=== PATIENT | male | born 1965 | race Caucasian/White ===

== ENCOUNTER → 2016-07-30 | Outpatient (CLI) | payer OTHER ==
[~2016-07-30] VITALS: Ht 167.6 cm; Wt 139.3 kg
[2016-07-30 15:28] VITALS: BP 125/87; PULSE 91; Ht 167.6 cm; Wt 139.3 kg
== END | disposition home or self-care (01) ==
LOC: C.NEUR 14:50
PROVIDERS: ATTEND Internal Medicine Pulmonary Disease
DX: R06.83 Snoring (principal); R06.81 Apnea, not elsewhere classified; R53.83 Other fatigue

== ENCOUNTER → 2016-09-02 | Outpatient (CLI) | payer OTHER ==
[~2016-09-02] MED LIST: FLM4 PO; METO50TA7 PO
--- NOTE | 2016-09-03 06:47 | SPLIT NIGHT TECHNICIAN REPORT ---
[facility] Split Night Polysomnogram - Oral And Maxillofacial Pathologist Report Study date: 09/02/2016 Referring Physician: DR. HA Name: RAJEEV PRIDE Oral And Maxillofacial Pathologist: RAS Vasquez. Date of : 1965 Height: 51 years, Height 5' 8" Sex: Male Weight: 268 lbs Age: 51 Neck Circum: 19 in BMI: Medications: 40.74 METOPROLOL 50 MG, TAMSULOSIN 0.4 MG, NAPROXEN 220 MG Patient History 51 yr-old male here for a baseline/split study. He has a history of excessive daytime sleepiness, loud snoring, witnessed apneas, and frequent awakenings. His [place] scale is 16. The test was started on room air. ETCO2 testing was not utilized during this study. Room 3 Parameters Monitored NPSG: E1-M2, E2-M1, Fp1-M2, Fp2-M1, F3-M2, F4-M2, F4-M1, C3-M2, C4-M2, C4-M1, O1-M2, O2-M2, O2-M1, T3-M2, T4-M1, P3-M2, P4-M1, CHIN1, CHIN2, HR, EKG, Legs, PFLOW, SNOR, FLOW, CFLOW, Tidal Volume, THOR, ABDO, SpO2, PLTH, CPRESS, ETCO2 Wave, ETCO2, pH SLEEP SUMMARY DATA DIAGNOSTIC TREATMENT Lights Out: 10:41:41 PM NONE Lights On: 1:15:11 AM 5:35:11 AM Total Recording Time (TRT): 153.5 min. 229.5 min. Total Sleep Time (TST): 128.0 min. 222.0 min. NREM Time: 113.0 min. 122.0 min. REM Time: 15.0 min. 100.0 min. Sleep Period Time (SPT): 138.0 min. 224.5 min. Sleep Efficiency (SE): 83 % 97 % Sleep Latency: 15.5 min. NONE min. Arousal Index: 19.2 1.9 PAP Treatment Levels: 4, 6 * Optimal Pressure(s) SLEEP STAGING DATA DIAGNOSTIC TREATMENT Duration (min) TST % Duration (min) TST % Stage Wake: 25.5 min. -- 7.5 min. -- WASO: 10.0 min. -- 2.5 min. -- NREM: 113.0 min. 88 % 122.0 min. 55 % Stage N1: 8.0 min. 6 % 6.0 min. 3 % Stage N2: 104.5 min. 82 % 49.5 min. 22 % Stage N3: 0.5 min. 0 % 66.5 min. 30 % REM: 15.0 min. 12 % 100.0 min. 45 % POSITIONAL DATA Event Count Index Event Count Index Supine: N/A N/A N/A N/A Supine NREM: N/A N/A N/A N/A Supine REM: N/A N/A N/A N/A Non-Supine: 219 102.7 3 0.8 Non-Supine NREM: 192 101.9 1 0.5 Non-Supine REM: 27 108.0 2 1.2 AROUSAL SUMMARY DATA: Event Count Index Event Count Index Apnea Arousals: 1 17.8 0 0.3 Hypopnea Arousals: 35 16.4 0 0.0 Snore Arousals: 1 0.5 6 1.6 PLM Arousals: 0 0.0 0 0.0 Non-Specific Arousals: 4 1.9 2 0.5 Total Arousals: 41 19.2 7 1.9 MYOCLONUS (PLM) Event Count Index Event Count Index PLM: 33 15.5 123 33.2 PLM AROUSAL: 0 0.0 0 0.0 PLM W/O AROUSAL 33 15.5 123 33.2 PLM W/RESP EVENT 5 0.0 0 0.0 MYOCLONUS (PLM) Event Count Index Event Count Index LM: 0 64.7 23 6.2 LM AROUSAL: 0 0.0 1 0.3 LM W/O AROUSAL LM W/RESP EVENT LM NON SPECIFIC 95 44.5 145 39.2 HEART RATE DATA DIAGNOSTIC TREATMENT Sleep (bpm): 84 80 REM (bpm): 87 92 NREM (bpm): 92 92 Tachycardia Count: 0 0 Tachycardia Duration: 0.00 0 Bradycardia Count: 0 0 Bradycardia Duration: 0.00 0 DIAGNOSTIC PORTION TREATMENT PORTION RESPIRATORY DATA Event Count Index Event Count Index AHI: -- 102.7 -- 0.8 RDI: -- 102.7 -- 1 Obstructive Apnea: 34 15.9 0 0.0 Central Apnea: 0 0.0 1 0.3 Mixed Apnea: 4 1.9 0 0.0 Hypopnea: 181 84.8 2 0.5 RERA: 0 0.0 0 0.0 Total Apneas: 38 17.8 1 0.3 RESPIRATORY DATA REM NREM SLEEP REM NREM SLEEP Supine Position: Obstructive Apneas: N/A N/A N/A N/A N/A N/A Central Apneas: N/A N/A N/A N/A N/A N/A Mixed Apneas: N/A N/A N/A N/A N/A N/A Hypopneas: N/A N/A N/A N/A N/A N/A RERA N/A N/A N/A N/A N/A N/A Total Supine Events: N/A N/A N/A N/A N/A N/A Supine AHI: N/A N/A N/A N/A N/A N/A Supine RDI: N/A N/A N/A N/A N/A N/A REM NREM SLEEP REM NREM SLEEP Non-Supine Position: Obstructive Apneas: 0 34 34 0 0 0 Central Apneas: 0 0 0 1 0 1 Mixed Apneas: 0 4 4 0 0 0 Hypopneas: 27 154 181 1 1 2 RERA 0 0 0 0 0 0 Total Supine Events: 27 192 219 2 1 3 Supine AHI: 108.0 101.9 102.7 1.2 0.5 0.8 Supine RDI: 108.0 101.9 102.7 1.2 0.5 0.8 OXYGEN DESTAURATION DATA: Event Count Index Event Count Index REM Desaturations: 27 108.0 4 2.4 NREM Desaturations: 199 105.7 3 1.5 SNORE DATA DIAGNOSTIC TREATMENT Snore Time: 36.2 1:50:41 AM Snore TST%: 28 13 Snore Arousal Count: 1 6 Snore Arousal Index: 0.5 1.6 Desaturation Event Summary: Minimum %SpO2 Event Count Mean/Min/Max Duration(sec.) Desaturation Index % Time In Bed > 90 252 17.0 / 5.0 / 47.8 47.3 84.1 86 - 90 6 16.9 / 11.3 / 24.0 6.9 13.8 81 - 85 0 N/A 0.0 1.3 76 - 80 0 N/A 0.0 0.7 71 - 75 0 N/A 0.0 0.1 66 - 70 0 N/A 0.0 0.0 61 - 65 0 N/A 0.0 0.0 56 - 60 0 N/A 0.0 0.0 51 - 55 0 N/A 0.0 0.0 < 50 0 N/A 0.0 0.0 OXYGEN SATURATION DATA DIAGNOSTIC TREATMENT SpO2 Mean Sleep: 91 % 92 % SpO2 Mean REM: 87 % 92 % SpO2 Mean NREM: 92 % 92 % SpO2 Minimum Sleep: 70 % 86 % SpO2 Minimum REM: 70 % 86 % SpO2 Minimum NREM: 74 % 88 % Time Below 90% (TST): 33.5 1.6 Time Below 88% (TST): 16.1 0.1 Total REM NREM Awake <50% 0.0 min. 0.0 min. 0.0 min. 0.0 min. 51 - 60% 0.0 min. 0.0 min. 0.0 min. 0.0 min. 61 - 70% 0.0 min. 0.0 min. 0.0 min. 0.0 min. 71 - 80% 3.3 min. 2.9 min. 0.4 min. 0.0 min. 81 - 90% 57.4 min. 15.0 min. 40.9 min. 1.4 min. 91 - 100% 319.8 min. 97.1 min. 191.7 min. 31.1 min. Average 92 91 92 94 Minimum SpO2 70 70 74 87 Desaturation Event Index 39.5 16.2 51.6 40.0 # Desat. Events below 89% 159 28 128 3 Time(%) with Saturation below 89% 6.2 2.1 4.0 0.1 Time(min.) with Saturation below 89% 23.5 7.9 15.4 0.2 Recording Oral And Maxillofacial Pathologist Comments: Mr. Pride slept in the right and left positions. No cardiac arrhythmias were noted. No bruxism noted. Snoring was noted and scored as a 4 on a scale of 1 through 5. (0=no snoring, 5=snoring loud enough to be heard through a closed door or down the [address] way). At 1:15 am, he met specific Split-Night criteria during the diagnostic portion of this study. CPAP was initiated at +4 CMH2O and up-titrated to a level of +6 CMH2O, Cflex 2 which nearly eliminated all respiratory events and snoring. A Mirage FX Soft edge nasal mask size standard from [employer] was used during titration. He awoke to use the restroom one time during the night. Mr. Pride stated that he slept better than usual. The final report will be interpreted and signed by a sleep physician. The completed physician report will then be placed in the patient medical record. Therapy Event: Therapy (cm H20) 0 4 6 Total Time at Pressure (min.) 153.5 18.7 210.7 TST at Pressure (min.) 128.0 11.8 210.2 # Periods 1 1 1 Sleep Onset (min.) 15.5 5.0 0.0 REM Onset (min.) 101.0 N/A 25.7 Sleep Efficiency % 83 62 99 Wakefulness (%) 16.6 37.1 0.2 Wakefulness (min.) 25.5 7.0 0.5 NREM 1 (%) 5.2 21.3 0.9 NREM 1 (min.) 8.0 4.0 2.0 NREM 2 (%) 68.1 41.5 19.8 NREM 2 (min.) 104.5 7.8 41.7 NREM 3 (%) 0.3 0.0 31.6 NREM 3 (min.) 0.5 0.0 66.5 REM (%) 9.8 0.0 47.5 REM (min.) 15.0 0.0 100.0 # Arousals 41 4 3 Arousal Index 19.2 20.4 0.9 # Snore 1,175 223 887 Snore Index 550.8 1,135.5 253.2 AHI 102.7 0.0 0.9 AHI Supine N/A N/A N/A AHI Non-Supine 102.7 0.0 0.9 NREM AHI 101.9 0.0 0.5 REM AHI 108.0 N/A 1.2 RDI 102.7 0.0 0.9 # Obstructive 34 0 0 # Central Ap 0 0 1 # Mixed 4 0 0 # Hypopneas 181 0 2 RERAS 0 0 0 Total Respiratory Events 219 0 3 Time Below SpO2 89.00% (min.) 23.0 0.0 0.3 Mean NREM SpO2 (%) 92 92 92 Mean REM SpO2 (%) 87 N/A 92 Mean Sleep SpO2 (%) 91 92 92 Min NREM SpO2 (%) 74 90 88 Min REM SpO2 (%) 70 N/A 86 Position Supine (min.) 0.0 0.0 0.0 Position Non-supine (min.) 128.0 11.8 210.2 LM Index Sleep 80.2 5.1 41.4 LM Index NREM 89.7 5.1 73.5 LM Index REM 8.0 N/A 6.0 Mean Heart Rate (bpm) 84 86 80 Min Heart Rate (bpm) 50 79 66
--- NOTE | 2016-09-06 07:40 | POLYSOMNOGRAPH REPORT ---
CLINICAL DATA: A 51-year-old male with BMI of 40.7 referred by myself for a split night sleep study. He has excessive daytime sleepiness, loud snoring, witnessed apneas, and frequent awakenings. His [place] sleepiness score is 16/24. This was a split night study. SLEEP ARCHITECTURE: For the diagnostic portion of the study, total sleep period was 138 minutes. Total sleep time was 128 minutes, divided between 113 minutes of non-REM sleep and 15 minutes of REM sleep. Sleep latency was 15.5 minutes. Sleep efficiency was 83%. Arousal index was 19.2. Sleep consisted of stage N1 6%, N2 82, REM 12%. For the treatment portion of the study, total sleep period was 224.5 minutes. Total sleep time was 222 minutes, divided between 122 minutes of non-REM sleep and 100 minutes of REM sleep. Sleep latency was immediate. Arousal index was 1.9. Sleep efficiency was 97%. Sleep consisted of stage N1 3%, N2 22%, N3 30% and REM 45% suggesting REM rebound. AROUSAL DATA: Prior to treatment, 41 arousals were recorded for an index of 19.2 per hour. Following treatment, 7 arousals were recorded for an index of 1.9 per hour. PERIODIC LIMB MOVEMENTS DATA: Prior to treatment, 95 limb movements during sleep were noted for an index of 44.5 per hour. During treatment, 145 limb movements during sleep were noted for an index of 39.2 per hour. ELECTROCARDIOGRAM: Heart rates ranged from 80-92 beats per minute. No arrhythmias were noted. RESPIRATORY DATA: Prior to treatment, very severe obstructive sleep apnea was documented. The AHI was 102.7. There were 34 obstructive apneic episodes and 4 mixed apneic episodes. There were 181 hypopneic episodes. Following treatment, the mean AHI was 0.8. There was 1 central apneic episode and 2 hypopneic episodes recorded. OXIMETRY DATA: Nocturnal hypoxemia was seen prior to treatment. Oxygen osiel was 78% during REM sleep prior to treatment. Mean saturation after treatment was 92%. CRYPTANALYST'S COMMENTS AND TREATMENT SUMMARY: The patient slept in the right and left positions. Snoring was severe, rated 4 on a scale of 1 through 5. At 1:15 a.m., patient met split night criteria. CPAP was started using a Mirage FX soft edge nasal mask standard size from [employer]. He was titrated up to his final pressure setting of 6 cm of water pressure, C-Flex setting #2. At his final pressure setting, patient slept for 210 minutes with an AHI of 0.9. After he was started on CPAP, his hypoxemia corrected and his sleep architecture improved dramatically. IMPRESSION: Very severe sleep apnea/hypopnea with diagnostic apnea hypopnea index of 102.7 with nocturnal hypoxemia corrected with CPAP 6 cm of water pressure, C-Flex setting #2, Mirage FX soft edge nasal mask size standard from [employer]. RECOMMENDATIONS: The patient should be started on the above noted treatment regimen and seen back in followup within 90 days to document efficacy and compliance. MTDD
== END | disposition home or self-care (01) ==
LOC: C.NEUR 21:00
PROVIDERS: ATTEND Internal Medicine Pulmonary Disease
DX: R53.83 Other fatigue (principal); R06.83 Snoring; R06.81 Apnea, not elsewhere classified

== ENCOUNTER → 2016-09-10 | Outpatient (CLI) | payer OTHER ==
[2016-09-10 16:32] VITALS: BP 135/83; PULSE 105; Ht 171.5 cm
== END | disposition home or self-care (01) ==
LOC: C.NEUR 14:41
PROVIDERS: ATTEND Internal Medicine Pulmonary Disease
DX: G47.33 Obstructive sleep apnea (adult) (pediatric) (principal)

== ENCOUNTER → 2016-12-07 | Outpatient (CLI) | payer OTHER ==
[2016-12-07 16:23] VITALS: BP 133/86; PULSE 97; Ht 170.2 cm
== END | disposition home or self-care (01) ==
LOC: C.NEUR 15:37
PROVIDERS: ATTEND Internal Medicine Pulmonary Disease
DX: G47.33 Obstructive sleep apnea (adult) (pediatric) (principal); E66.9 Obesity, unspecified

== ENCOUNTER 2017-04-14 10:14 | Emergency (ER) | payer OTHER ==
[2017-04-14 10:22] VITALS: BP 133/92; PULSE 89; TEMP 36.9; O2SAT 95; Ht 172.7 cm
[2017-04-14] MEDS ORDERED: METO50TA7 PO (10:39)
[2017-04-14] MEDS ORDERED: FLM4 PO (10:39)
--- NOTE | 2017-04-14 11:17 | EMERGENCY ROOM VISIT NOTE ---
ED Visit Note First contact with patient: 11:01 CHIEF COMPLAINT: Body Fluid exposure HPI: This 51-year-old male presents to the Emergency Department ambulatory for evaluation of a body fluid exposure when he was accidentally stuck by a solid bore, dirty needle in the operating room. Patient was wearing 2 gloves and was taking a Popoff suture from the surgeon and the needle slipped and caused a fingerstick. The wound has already been cleansed. Bleeding is controlled. They deny numbness, tingling, or loss of motion. Source patient is known. History of the source patient is not known at this time. The patient works at [employer]. They have had the hepatitis B. vaccination, and titers are unknown. They believe their tetanus is up-to-date. Pain is 0/10. 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 Physical Exam: VITALS: Nursing notes reviewed and vitals are stable. GENERAL: This is a 51-year-old male, in no acute distress, well developed, well nourished. SKIN: Warm and dry with good turgor. There are no abrasions. There are no obvious open areas or punctures to the left finger. Bleeding is controlled. No edema. Capillary refill is 2+. MUSCULOSKELETAL: Patient has full active range of motion of the hand and fingers. Normal strength. NEURO: Gross sensation is intact across the hand and fingers. ED COURSE: I examined the patient. Option of HIV, hepatitis C, and hepatitis B testing was discussed with the patient. The risks, benefits, purpose, and limitations of the tests were explained to the patient and all of their questions were answered. They elected to proceed. I did perform pretest counseling and the appropriate consent forms were signed. Patient was given information on prevention of exposure and transmission as well as hospital confidentiality. Blood exposure handout was provided. Patient elected to decline HIV prophylaxis at this time. They will follow-up with employee health. Wound care instructions were provided. Impression: Body fluid exposure Plan: Follow up with employee health for further evaluation, treatment, and test results. Current/Historical Medications Scheduled Metoprolol Succ (Toprol Xl) (Toprol-Xl), 50 MG PO DAILY Tamsulosin HCl (Tamsulosin HCl), 0.4 MG PO DAILY Allergies Coded Allergies: No Known Allergies (Verified Allergy, Unknown, 05/18/04) Vital Signs Date Time Temp Pulse Resp B/P (MAP) Pulse Ox O2 Delivery O2 Flow Rate FiO2 04/14/17 10:22 36.9 89 20 133/92 95 Room Air Departure Information Impression Primary Impression: Needlestick injury accident with exposure to body fluid Additional Impression: Work related injury Dispostion Home / Self-Care Condition GOOD Referrals Aishwarya Beck (PCP) Patient Instructions ED Body Fluid Exp 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 Problem Qualifiers
== END 2017-04-14 11:38 | disposition home or self-care (01) ==
LOC: C.EDB 10:15 → C.EDA 11:38
DX: Z77.21 Contact with and (suspected) exposure to potentially hazardous body fluids (principal); W46.1XXA Contact with contaminated hypodermic needle, initial encounter; Y99.0 Civilian activity done for income or pay

== ENCOUNTER → 2017-05-19 | Outpatient (CLI) | payer OTHER ==
--- NOTE | 2017-05-19 16:04 | DIAGNOSTIC IMAGING REPORT ---
R KNEE 4 OR MORE VIEWS CLINICAL HISTORY: 51 years-old Male presenting with BILATERAL KNEE PAIN. TECHNIQUE: Frontal, lateral, tunnel, and sunrise views of the right knee were obtained. COMPARISON: 2012. FINDINGS: No acute fracture or malalignment. There has been slight interval increase in medial and lateral joint space narrowing in comparison to 2012. There is greater medial joint space loss in comparison to the lateral compartment. Trace osteophytosis in the medial compartment suggested. Minimal osteophytosis in the patellofemoral compartment is unchanged from prior. No large effusion. IMPRESSION: No acute osseous injury of the right knee. Mild tricompartmental degenerative changes slightly increased in the medial compartment since 2012. Electronically signed by: Luis Madera M.D. 05/19/2017 4:03 PM Dictated Date/Time: 05/19/2017 4:01 PM
--- NOTE | 2017-05-19 16:07 | DIAGNOSTIC IMAGING REPORT ---
LEFT KNEE 4 VIEWS HISTORY: BILATERAL KNEE PAIN COMPARISON: None. FINDINGS: There is no fracture or dislocation. Soft tissues are unremarkable. No significant knee effusion. Mild cartilage space narrowing within the patellofemoral compartments with small tricompartmental marginal osteophytes. IMPRESSION: 1. No fractures within the left knee. 2. 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 Electronically signed by: Tam Lao M.D. 05/19/2017 4:05 PM Dictated Date/Time: 05/19/2017 4:04 PM
--- NOTE | 2017-05-20 09:33 | CODING QUERY NO DIAGNOSIS ---
: 1965 TREATMENT RENDERED WITHOUT A DIAGNOSIS To promote full compliance with coding requirements relating to patient care, physician participation is requested in all cases of advertising space clerk uncertainty. Please assist us with providing a diagnosis/symptom for the test(s) below: A diagnosis/symptom was not documented on your Order. A valid diagnosis/symptom is required to bill all insurances. Please remember that we are unable to code a diagnosis of rule out, probable, possible, questionable, or suspected. Tests that require a diagnosis: DOS: 05/19/17 * BILATERAL KNEE XRAY DIAGNOSIS: Provider Signature: Date: Thank you Sravanthi Thomas Health Information Management Once completed, please kindly fax back to [phone] For questions please call [phone]
== END | disposition home or self-care (01) ==
LOC: C.RAD 15:24
DX: Z01.89 Encounter for other specified special examinations (principal)

== ENCOUNTER → 2017-05-27 | Outpatient (CLI) | payer OTHER ==
--- NOTE | 2017-05-27 09:56 | DIAGNOSTIC IMAGING REPORT ---
L LOWER EXT JOINT WITHOUT CLINICAL HISTORY: 51 years-old Male presenting with ACUTE L KNEE PAIN. TECHNIQUE: Multisequence, multiplanar MR imaging of the left knee was performed without the use of intravenous contrast. IV contrast: None. COMPARISON: Plain radiographs of the left knee from 05/19/2017. FINDINGS: Localizer images: Unremarkable. No bony edema. Focal articular cartilage defect nearly 50% thickness along the posterior lateral weightbearing portion of the medial femoral condyle (at least grade 2 cartilage injury). The defect measures 7 mm in length and 11 mm in width. Articular cartilage thinning and irregularity of the lateral facet of the patella with greatest thinning in the region of the median prominence and greatest irregularity more laterally. The patella is also slightly laterally subluxed relative to the trochlear groove. Subchondral cystic change also noted in the patella along the lateral facet which suggests grade 4 cartilage injury. Diffusely increased signal intensity of the anterior cruciate ligament though fibers remain visible and intact. This likely implies mucoid degeneration of the ACL. Posterior cruciate ligament intact. Significant underlying degenerative change of the anterior horn and anterior root of the lateral meniscus with a complex tear present. Medial meniscus with focal abnormal signal intensity that approaches the tibial articular surface along the body of the meniscus with intrasubstance abnormal signal, suggesting degenerative type tear. Meniscocapsular ligaments appear intact. Medial collateral ligament with mild edema superficial and deep to the mid to proximal fibers though the fibers remain intact and normal in signal intensity, suggesting grade 1 sprain. Lateral collateral ligament complex including the biceps femoris tendon, fibular collateral ligament, popliteus tendon, and iliotibial band intact. Quadriceps and patellar tendons intact. Extensive superficial edema in the prepatellar region suggesting prepatellar bursitis. No infiltration of Hoffa's fat pad. Small knee joint effusion. Small popliteal cyst. Normal muscle bulk and muscle signal intensity. IMPRESSION: 1. Complex tear with extensive degenerative change of the anterior horn and anterior root of the lateral meniscus. 2. Degenerative type tear of the body of the medial meniscus. 3. Extensive mucoid degeneration of the anterior cruciate ligament without evidence of tear. 4. Articular cartilage degenerative change along the lateral patellar facet as above with associated lateral patellar subluxation. 5. Focal articular cartilage defect (at least grade 2 cartilage injury) in the posterior lateral weightbearing portion of the medial femoral condyle measuring 7 x 11 mm. 6. Grade 1 sprain of the medial collateral ligament. 7. Small knee joint effusion. 8. Findings suggest prepatellar bursitis. Electronically signed by: Luis Madera M.D. 05/27/2017 9:55 AM Dictated Date/Time: 05/27/2017 9:40 AM
== END | disposition home or self-care (01) ==
LOC: C.MRI 08:21
DX: S83.282A Other tear of lateral meniscus, current injury, left knee, initial encounter (principal); S83.242A Other tear of medial meniscus, current injury, left knee, initial encounter; M17.12 Unilateral primary osteoarthritis, left knee; S83.412A Sprain of medial collateral ligament of left knee, initial encounter; M25.462 Effusion, left knee; X58.XXXA Exposure to other specified factors, initial encounter

== ENCOUNTER → 2017-05-31 | Outpatient (CLI) | payer OTHER ==
[2017-05-31 12:57] LABS: BASO % 0.4 %; BASO ABS # 0.03 K/uL (0-0.2); COMPLETE YES; IG% 0.6 %; LYMPH % 19.9 %; LYMPH ABS # 1.43 K/uL (1.2-3.4); MEAN CELL VOLUME 83.5 fL (80-100); MEAN CORPUSCULAR HEMOGLOBIN 28.5 pg (25-34); MEAN CORPUSCULAR HGB CONC 34.2 g/dl (32-36); MEAN PLATELET VOLUME 10.2 fL (7.4-10.4); MONO % 8.1 %; PLATELET COUNT 186 K/uL (130-400); RED BLOOD COUNT 5.15 M/uL (4.7-6.1); WHITE BLOOD COUNT 7.19 K/uL (4.8-10.8)
[2017-05-31 13:09] LABS: URINE APPEARANCE CLOUDY (CLEAR); URINE BILIRUBIN NEG (NEG); URINE COLOR YELLOW; URINE EPITHELIAL CELL AUTO 0-5 /lpf (0-5); URINE NITRITE NEG (NEG); URINE SPECIFIC GRAVITY 1.024 (1.000-1.030); UROBILINOGEN NEG (NEG); ZZUR CULT IF INDIC CLEAN CATCH NO
[2017-05-31 13:15] LABS: MANUAL MICROSCOPIC REQUIRED? NO; REVIEW REQ? NO
[2017-05-31 13:20] LABS: ESTIMATED AVERAGE GLUCOSE 171 mg/dl; HA1C FLAG Normal (Normal)
[2017-05-31 13:30] LABS: ALT/SGPT 47 U/L (12-78); BLOOD UREA NITROGEN 16 mg/dl (7-18); BUN/CREATININE RATIO 16.1 (10-20); CARBON DIOXIDE 24 mmol/L (21-32); CHLORIDE 106 mmol/L (98-107); CHOLESTEROL 181 mg/dl (0-200); CREATININE 1.01 mg/dl (0.60-1.40); GLUCOSE 150 mg/dl (70-99); POTASSIUM 4.2 mmol/L (3.5-5.1); SODIUM 138 mmol/L (136-145)
[2017-05-31 13:41] LABS: ALB/GLOB RATIO 0.9 (0.9-2); ALKALINE PHOSPHATASE 109 U/L (45-117); AST/SGOT 16 U/L (15-37); HDL CHOLESTEROL 36 mg/dl; LDL CHOLESTEROL CALCULATED 111 mg/dl; THYROID STIMULATING HORMONE 0.723 uIu/ml (0.300-4.500); TRIGLYCERIDES 169 mg/dl (0-150); VERY LOW DENSITY LIPOPROT CALC 34 mg/dl
== END | disposition home or self-care (01) ==
LOC: C.LABBFT 09:47
PROVIDERS: ATTEND Internal Medicine
DX: R73.9 Hyperglycemia, unspecified (principal); E66.9 Obesity, unspecified; E55.9 Vitamin D deficiency, unspecified; R68.82 Decreased libido

== ENCOUNTER → 2017-10-06 | Outpatient (CLI) | payer OTHER ==
[~2017-10-06] MED LIST changes: -METO50TA7 PO; +METO50TA8 PO
[2017-10-06 12:53] LABS: HEMOGLOBIN A1C 8.5 % (4.5-5.6)
[2017-10-06 13:22] LABS: ALBUMIN 3.7 gm/dl (3.4-5.0); ALT/SGPT 61 U/L (12-78); BLOOD UREA NITROGEN 12 mg/dl (7-18); CALCIUM 9.2 mg/dl (8.5-10.1); CARBON DIOXIDE 27 mmol/L (21-32); CHOLESTEROL 208 mg/dl (0-200); CREATININE 1.05 mg/dl (0.60-1.40); GLUCOSE 173 mg/dl (70-99); POTASSIUM 4.1 mmol/L (3.5-5.1); SODIUM 136 mmol/L (136-145)
[2017-10-06 13:26] LABS: ALKALINE PHOSPHATASE 126 U/L (45-117); AST/SGOT 23 U/L (15-37); LDL CHOLESTEROL CALCULATED 129 mg/dl; TOTAL PROTEIN 7.5 gm/dl (6.4-8.2)
== END | disposition home or self-care (01) ==
LOC: C.LABBFT 10:02
PROVIDERS: ATTEND Physician Assistant Medical
DX: E11.65 Type 2 diabetes mellitus with hyperglycemia (principal)

== ENCOUNTER → 2018-02-24 | Outpatient (CLI) | payer OTHER | END | disposition home or self-care (01) | LOC: C.LAB 15:52 | PROVIDERS: ATTEND Urology | DX: R97.20 Elevated prostate specific antigen [PSA] (principal); N40.1 Benign prostatic hyperplasia with lower urinary tract symptoms ==

== ENCOUNTER → 2018-03-02 | Outpatient (CLI) | payer OTHER ==
[2018-03-02 12:44] LABS: HEMOGLOBIN A1C 5.8 % (4.5-5.6)
[2018-03-02 13:46] LABS: CREATININE RANDOM URINE 98.4 mg/dl
[2018-03-02 14:01] LABS: ALBUMIN 3.8 gm/dl (3.4-5.0); ALKALINE PHOSPHATASE 117 U/L (45-117); ALT/SGPT 32 U/L (12-78); AST/SGOT 12 U/L (15-37); BLOOD UREA NITROGEN 16 mg/dl (7-18); CARBON DIOXIDE 24 mmol/L (21-32); CHOLESTEROL 187 mg/dl (0-200); CREATININE 0.99 mg/dl (0.60-1.40); GLUCOSE 109 mg/dl (70-99); LDL CHOLESTEROL CALCULATED 127 mg/dl; POTASSIUM 4.2 mmol/L (3.5-5.1); SODIUM 138 mmol/L (136-145); TOTAL PROTEIN 7.8 gm/dl (6.4-8.2)
== END | disposition home or self-care (01) ==
LOC: C.LABBFT 10:22
PROVIDERS: ATTEND Physician Assistant Medical
DX: E11.65 Type 2 diabetes mellitus with hyperglycemia (principal)

== ENCOUNTER 2019-12-10 10:28 | Inpatient (IN) ==
[2019-12-10] MEDS ORDERED: cefTRIAXone SODIUM 1,000 MG/50 ML BAG IV STA ×2 (10:53→16:10)
[2019-12-10] MEDS ORDERED: SODIUM CHLORIDE 0.9% 1000ML 1,000 ML IV ONE ×3 (10:53→16:20)
[2019-12-10] MEDS ORDERED: LIDOCAINE/EPINEPHRINE 1% 20 ML VIAL INFIL ONE (11:01)
--- NOTE | 2019-12-10 11:08 | Emergency Department Note ---
Impression & Plan Prostatitis, Abdominal pain, Post-op pain ED Provider Note NAME: RAJEEV NEWBERRY AGE: 54 SEX: M : 1965 ARRIVES VIA: Ambulance INFORMANT: Patient ED PROVIDER(S): Taran Mondragon DO CHIEF COMPLAINT: Weakness, myalgias and shaking chills HPI: Patient is a 54-year-old male who presents the ER for abdominal pain and shaking chills. Had a prostate biopsy by Dr. Delgadillo done this past Tuesday. He notes on Tuesday he started having diffuse body chills and his whole body shaking. Faint cough this morning following which he felt he was going to vomit. Since then he has been having abdominal pain 7 out of 10 throughout his entire belly. He does have a headache as well. He denies any recorded fevers above 100.4 but has had some 99.9. He took 3 doses of Cipro prescribed to him by Dr. Delgadillo Tuesday. He notes he is too weak to get up and move around. He denies any dysuria urgency or frequency at this time. He denies any blood in his urine. ROS: See above HPI for pertinent positives & negatives. A total of 10 systems reviewed and were otherwise negative. PAST MEDICAL HISTORY:See Below PAST SURGICAL HISTORY:See Below FAMILY HISTORY:See Below SOCIAL HISTORY:See Below HOME MEDICATIONS:See Below ALLERGIES:See Below VITALS:See Below PHYSICAL EXAMINATION: GENERAL: Sitting up in bed, alert, well appearing, well nourished, no distress, non-toxic EYE EXAM: normal conjunctiva. PERRL and EOM's grossly intact. OROPHARYNX: no exudate, no erythema, lips, buccal mucosa, and tongue normal and mucous membranes are moist NECK: supple, no nuchal rigidity, no adenopathy, non-tender LUNGS: Clear to auscultation. Normal chest wall mechanics HEART: no murmurs, S1 normal and S2 normal ABDOMEN: abdomen soft, diffuse abdominal tenderness, normo-active bowel sounds, no masses, no rebound or guarding. BACK: Back is symmetrical on inspection and there is no deformity, no midline tenderness, no CVA tenderness. SKIN: no rashes and no bruising UPPER EXTREMITIES: upper extremities are grossly normal. LOWER EXTREMITIES: No pitting edema. NEURO EXAM: Normal sensorium, cranial nerves II-XII grossly intact, normal speech, no gross weakness of arms, no gross weakness of legs. MEDICAL DECISION MAKING: Patient is a 54-year-old male that presents the ER for diffuse myalgias and arthralgias associated with shaking chills and a recent prostate biopsy. He was placed on Cipro yesterday and took a total of 3 doses. IV was established blood work was obtained. He has diffuse lower abdominal pain on my exam. Labs show no significant leukocytosis or anemia. INR was unremarkable. BMP with mild hypokalemia. Glucose was slightly elevated. Lactate was normal. Magnesium was low at 1.5. LFTs and bilirubin was normal. Troponin was negative. UA was clean although he has been on antibiotics x3 doses. CT abdomen pelvis shows proctitis versus prostatitis. Patient was given IV fluids, IV pain meds as well as IV antibiotics. He was updated bedside. Discussed with urology and the hospitalist and patient was admitted for further work-up as I do favor this secondary to an infection from his recent biopsy. Triage Nursing notes reviewed. Prior medical records reviewed Vital Signs: reviewed and remarkable for no significant abnormalities Differential diagnosis: Differential diagnosis includes etiologies such as sepsis, UTI, pneumonia, metabolic, electrolyte abnormalities, cardiac sources, intracerebral event, toxicologic, neurological, as well as others were entertained. ER treatment provided: See below Diagnostics interpreted by me: ECG: Sinus tach rate of 105 Normal axis No PVCs Normal QTC Cardiac Monitoring: An order was placed for continuous cardiac monitoring. The monitor shows a rate of 95 with sinus rhythm. Laboratory studies: As stated above and show below. Imaging studies: CT abdomen pelvis shows prostatitis Consultation(s): Discussed with Sirisha from [place] u[facility] who recommended observation. Discussed with Andria Connors from admitting hospitalist. 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 Feels Safe at Home: Yes Smoking Status: Never smoker Hx Alcohol Use: Yes Alcohol type: beer Hx Substance Use: No Allergies Allergies Allergy/AdvReac Type Severity Reaction Status Date / Time No Known Allergies Allergy Unknown Verified 12/10/19 11:30 Home Meds Home Medications Medication Instructions Recorded Confirmed acetaminophen 500 mg tablet 500 mg PO DAILY PRN tab 02/24/19 12/10/19 cholecalciferol (vitamin D3) 125 5,000 units PO FR cap 02/24/19 12/10/19 mcg (5,000 unit) capsule ibuprofen 800 mg tablet 800 mg PO BID tab 02/24/19 12/10/19 dulaglutide [Trulicity] 0.75 mg SQ FR 12/10/19 12/10/19 losartan 75 mg PO HS 12/10/19 12/10/19 metformin 2,000 mg PO HS 12/10/19 12/10/19 tamsulosin 0.4 mg PO HS 12/10/19 12/10/19 Previous Rx's Medication Instructions Recorded ciprofloxacin HCl 500 mg tablet 500 mg PO BID #10 tab 12/09/19 Results & Data (ED) Vital Signs Vital Signs - 24 hr 12/10/19 10:35 12/10/19 12:00 12/10/19 12:30 Temperature 37.1 C Temperature Source Oral Pulse Rate 111 H Pulse Rate [Apical] 99 H 97 H Pulse Rate from SpO2 Sensor Pulse Rhythm [Apical] Regular Regular Pulse Strength [Apical] Normal Respiratory Rate 22 18 18 Respiratory Effort / Characteristics Non-Labored Non-Labored Spontaneous Non-Labored Spontaneous Respiratory Depth Normal Normal Normal Respiratory Pattern Regular Regular Blood Pressure 122/76 Blood Pressure [Right Arm] 139/85 138/83 Blood Pressure Mean 91 Blood Pressure Mean [Right Arm] 103 101 Pulse Oximetry 96 96 96 Oxygen Delivery Method Room Air Room Air Room Air Sepsis Recent Fever Within 48 Hours Yes Sepsis New/Unexplained Change in Mental Status No Sepsis Action Taken by Nursing No Action Required 12/10/19 13:00 12/10/19 13:15 12/10/19 13:30 Temperature Temperature Source Pulse Rate 94 H 96 H Pulse Rate [Apical] 94 H Pulse Rate from SpO2 Sensor 95 H 95 H Pulse Rhythm [Apical] Regular Pulse Strength [Apical] Respiratory Rate 20 21 20 Respiratory Effort / Characteristics Non-Labored Spontaneous Respiratory Depth Normal Respiratory Pattern Regular Blood Pressure 145/78 H 129/82 Blood Pressure [Right Arm] 136/73 Blood Pressure Mean 97 98 Blood Pressure Mean [Right Arm] 94 Pulse Oximetry 96 96 96 Oxygen Delivery Method Room Air Sepsis Recent Fever Within 48 Hours Sepsis New/Unexplained Change in Mental Status Sepsis Action Taken by Nursing 12/10/19 13:45 12/10/19 14:00 12/10/19 14:15 Temperature Temperature Source Pulse Rate 92 H Pulse Rate [Apical] Pulse Rate from SpO2 Sensor 92 H 93 H 97 H Pulse Rhythm [Apical] Pulse Strength [Apical] Respiratory Rate 22 20 19 Respiratory Effort / Characteristics Respiratory Depth Respiratory Pattern Blood Pressure 120/84 135/72 131/71 Blood Pressure [Right Arm] Blood Pressure Mean 104 87 91 Blood Pressure Mean [Right Arm] Pulse Oximetry 95 96 95 Oxygen Delivery Method Sepsis Recent Fever Within 48 Hours Sepsis New/Unexplained Change in Mental Status Sepsis Action Taken by Nursing 12/10/19 14:30 12/10/19 15:00 Temperature Temperature Source Pulse Rate Pulse Rate [Apical] Pulse Rate from SpO2 Sensor 95 H 96 H Pulse Rhythm [Apical] Pulse Strength [Apical] Respiratory Rate 0 L Respiratory Effort / Characteristics Respiratory Depth Respiratory Pattern Blood Pressure 133/75 136/85 Blood Pressure [Right Arm] Blood Pressure Mean 97 109 Blood Pressure Mean [Right Arm] Pulse Oximetry 96 96 Oxygen Delivery Method Sepsis Recent Fever Within 48 Hours Sepsis New/Unexplained Change in Mental Status Sepsis Action Taken by Nursing Laboratory Data Result diagrams: 12/10/19 11:10 12/10/19 11:10 Lab Results 12/10/19 12/10/19 12/10/19 Range/Units 11:10 11:10 11:10 WBC 7.92 (4.8-10.8) K/uL RBC 4.76 (4.7-6.1) M/uL Hgb 13.7 L (14.0-18.0) g/dL Hct 39.1 L (42-52) % MCV 82.1 (80-100) fL MCH 28.8 (25-34) pg MCHC 35.0 (32-36) g/dL RDW Std Deviation 42.7 (36.4-46.3) fL RDW Coeff of Layla 14.2 (11.5-14.5) % Plt Count 132 (130-400) K/uL MPV 10.2 (7.4-10.4) fL Immature Gran % (Auto) 0.5 % Neut % (Auto) 90.7 % Lymph % (Auto) 2.1 % Webb % (Auto) 6.6 % Eos % (Auto) 0.0 % Baso % (Auto) 0.1 % Immature Gran # (Auto) 0.04 H (0.00-0.02) K/uL Neut # (Auto) 7.18 H (1.4-6.5) K/uL Lymph # (Auto) 0.17 L (1.2-3.4) K/uL Webb # (Auto) 0.52 (0.11-0.59) K/uL Eos # (Auto) 0.00 (0-0.5) K/uL Baso # (Auto) 0.01 (0-0.2) K/uL PT 13.1 H (9.0-12.0) Seconds INR 1.3 H (0.9-1.1) APTT 34.7 H (21.0-31.0) Seconds PTT Ratio 1.2 Sodium 135 L (136-145) mmol/L Potassium 3.4 L (3.5-5.1) mmol/L Chloride 104 (98-107) mmol/L Carbon Dioxide 23 (21-32) mmol/L Anion Gap 8.0 (3-11) BUN 14 (7-18) mg/dl Creatinine 1.10 (0.6-1.4) mg/dl Est Cr Clr Drug Dosing Not Reportable Est GFR ( Amer) 87.1 Est GFR (Non-Af Amer) 75.2 BUN/Creatinine Ratio 13.1 (10-20) Glucose 180 H (70-99) mg/dl Lactate (0.4-2.0) mmol/L Calcium 8.4 L (8.5-10.1) mg/dl Magnesium 1.5 L (1.8-2.4) mg/dl Total Bilirubin 1.1 H (0.2-1) mg/dl AST 22 (15-37) U/L ALT 46 (12-78) U/L Alkaline Phosphatase 85 (45-117) U/L Troponin I < 0.015 (0-0.045) ng/ml Total Protein 7.1 (6.4-8.2) gm/dl Albumin 3.2 L (3.4-5.0) gm/dl Globulin 3.9 (2.5-4.0) gm/dl Albumin/Globulin Ratio 0.8 L (0.9-2) Urine Color Urine Appearance (Clear) Urine pH (4.5-7.5) Ur Specific [place] (1.000-1.030) Urine Protein (Negative) Urine Glucose (UA) (Negative) Urine Ketones (Negative) Urine Blood (Negative) Urine Nitrite (Negative) Urine Bilirubin (Negative) Urine Urobilinogen (Negative) Ur Leukocyte Esterase (Negative) 12/10/19 12/10/19 Range/Units 11:10 13:27 WBC (4.8-10.8) K/uL RBC (4.7-6.1) M/uL Hgb (14.0-18.0) g/dL Hct (42-52) % MCV (80-100) fL MCH (25-34) pg MCHC (32-36) g/dL RDW Std Deviation (36.4-46.3) fL RDW Coeff of Layla (11.5-14.5) % Plt Count (130-400) K/uL MPV (7.4-10.4) fL Immature Gran % (Auto) % Neut % (Auto) % Lymph % (Auto) % Webb % (Auto) % Eos % (Auto) % Baso % (Auto) % Immature Gran # (Auto) (0.00-0.02) K/uL Neut # (Auto) (1.4-6.5) K/uL Lymph # (Auto) (1.2-3.4) K/uL Webb # (Auto) (0.11-0.59) K/uL Eos # (Auto) (0-0.5) K/uL Baso # (Auto) (0-0.2) K/uL PT (9.0-12.0) Seconds INR (0.9-1.1) APTT (21.0-31.0) Seconds PTT Ratio Sodium (136-145) mmol/L Potassium (3.5-5.1) mmol/L Chloride (98-107) mmol/L Carbon Dioxide (21-32) mmol/L Anion Gap (3-11) BUN (7-18) mg/dl Creatinine (0.6-1.4) mg/dl Est Cr Clr Drug Dosing Est GFR ( Amer) Est GFR (Non-Af Amer) BUN/Creatinine Ratio (10-20) Glucose (70-99) mg/dl Lactate 1.2 (0.4-2.0) mmol/L Calcium (8.5-10.1) mg/dl Magnesium (1.8-2.4) mg/dl Total Bilirubin (0.2-1) mg/dl AST (15-37) U/L ALT (12-78) U/L Alkaline Phosphatase (45-117) U/L Troponin I (0-0.045) ng/ml Total Protein (6.4-8.2) gm/dl Albumin (3.4-5.0) gm/dl Globulin (2.5-4.0) gm/dl Albumin/Globulin Ratio (0.9-2) Urine Color Yellow Urine Appearance Clear (Clear) Urine pH 6.0 (4.5-7.5) Ur Specific [place] 1.028 (1.000-1.030) Urine Protein Negative (Negative) Urine Glucose (UA) Negative (Negative) Urine Ketones Negative (Negative) Urine Blood Negative (Negative) Urine Nitrite Negative (Negative) Urine Bilirubin Negative (Negative) Urine Urobilinogen Negative (Negative) Ur Leukocyte Esterase Negative (Negative) Administered Medications Ioversol (Optiray 320 100ml) 94 ml IV ONCE PRN PRN Reason: Interaction Checking Stop: 12/14/19 12:41 Last Admin: 12/10/19 12:42 Dose: 94 ml Documented by: [id number] Discontinued Medications Sodium Chloride (Nss 1000ml) 1,000 mls @ 999 mls/hr IV .Q1H1M ONE Stop: 12/10/19 11:53 Last Infusion: 12/10/19 12:43 Dose: 0 mls/hr Documented by: [id number] Admin: 12/10/19 11:41 Dose: 999 mls/hr Documented by: [id number] Ceftriaxone Sodium (Rocephin) 1,000 mg in 50 mls @ 100 mls/hr IV NOW STA Stop: 12/10/19 11:22 Last Infusion: 12/10/19 12:43 Dose: 0 mls/hr Documented by: [id number] Admin: 12/10/19 11:40 Dose: 100 mls/hr Documented by: [id number] Sodium Chloride (Nss 1000ml) 1,000 mls @ 999 mls/hr IV .Q1H1M ONE Stop: 12/10/19 12:03 Last Infusion: 12/10/19 12:43 Dose: 0 mls/hr Documented by: [id number] Admin: 12/10/19 11:41 Dose: 999 mls/hr Documented by: [id number] Lidocaine/Epinephrine (Xylocaine/Epinephrine 1%) 20 ml INFIL NOW ONE Stop: 12/10/19 11:02 Last Admin: 12/10/19 11:50 Dose: Not Given Documented by: [id number] Discharge Plan Visit Data Chief Complaint: Illness ED Provider: Taran Mondragon Discharge Problem: Prostatitis, Abdominal pain, Post-op pain Forms Stand Alone Forms: [facility] Prescriptions Prescriptions: No Action ciprofloxacin HCl [Cipro] 500 mg tablet 500 mg PO BID Qty: 10 RF: 0 ibuprofen 800 mg tablet 800 mg PO BID RF: 0 acetaminophen 500 mg tablet 500 mg PO DAILY PRN (Reason: Pain) RF: 0 cholecalciferol (vitamin D3) 5,000 unit capsule 5,000 units PO FR RF: 0 tamsulosin 0.4 mg capsule 0.4 mg PO HS RF: 0 losartan 25 mg tablet 75 mg PO HS RF: 0 metformin 500 mg tablet extended release 24 hr 2,000 mg PO HS RF: 0 Trulicity 0.75 mg/0.5 mL pen injector 0.75 mg SQ FR RF: 0 Discharge Problem: Prostatitis Qualifiers: Prostatitis type: unspecified Qualified Code(s): N41.9 - Inflammatory disease of prostate, unspecified Abdominal pain Qualifiers: Abdominal location: unspecified location Qualified Code(s): R10.9 - Unspecified abdominal pain
--- NOTE | 2019-12-10 11:09 | XRay Report ---
XR chest 1V portable CLINICAL HISTORY: SEPSIS dyspnea COMPARISON STUDY: 09/06/2018 FINDINGS: The bones soft tissues and hemidiaphragms are normal. The cardiomediastinal silhouette is n ormal. The lungs are clear. The pulmonary vasculature is normal. IMPRESSION: Negative chest. ACT 112: Negative or not required by law. The above report was generated using voice recognition software. It may contain grammatical, syntax or spelling errors. Electronically signed by: Tod Dyson M.D. 12/10/2019 11:08 AM
[2019-12-10 11:38] LABS: Basophils # (auto) 0.01 K/uL (0-0.2); Basophils % (auto) 0.1 %; Hematocrit (blood only) 39.1 % (42-52); Hemoglobin 13.7 g/dL (14.0-18.0); Immature Granulocytes # (auto) 0.04 K/uL (0.00-0.02); Immature Granulocytes % (auto) 0.5 %; Lymphocytes # (auto) 0.17 K/uL (1.2-3.4); Lymphocytes % (auto) 2.1 %; Mean Corpuscular Hemoglobin 28.8 pg (25-34); Mean Corpuscular Volume 82.1 fL (80-100); Mean Platelet Volume 10.2 fL (7.4-10.4); Monocytes # (auto) 0.52 K/uL (0.11-0.59); Monocytes % (auto) 6.6 %; Neutrophils # (auto) 7.18 K/uL (1.4-6.5); Neutrophils % (auto) 90.7 %; Platelet Count 132 K/uL (130-400); RDW Coefficient of Variation 14.2 % (11.5-14.5); RDW Standard Deviation 42.7 fL (36.4-46.3); Red Blood Count 4.76 M/uL (4.7-6.1); White Blood Count 7.92 K/uL (4.8-10.8)
[2019-12-10 11:50] LABS: INR 1.3 (0.9-1.1); Partial Thromboplastin Ratio 1.2; Partial Thromboplastin Time 34.7 Seconds (21.0-31.0); Prothrombin Time 13.1 Seconds (9.0-12.0)
[2019-12-10 11:52] LABS: Alanine Aminotransferase 46 U/L (12-78); Albumin Level 3.2 gm/dl (3.4-5.0); Aspartate Aminotransferase 22 U/L (15-37); BUN Creatinine Ratio 13.1 (10-20); Blood Urea Nitrogen 14 mg/dl (7-18); Calcium 8.4 mg/dl (8.5-10.1); Carbon Dioxide 23 mmol/L (21-32); Chloride 104 mmol/L (98-107); Est GFR (African American) 87.1; Est GFR (Non-African American) 75.2; Glucose 180 mg/dl (70-99); Magnesium 1.5 mg/dl (1.8-2.4); Potassium 3.4 mmol/L (3.5-5.1); Sodium 135 mmol/L (136-145)
[2019-12-10 11:57] LABS: Albumin Globulin Ratio 0.8 (0.9-2); Alkaline Phosphatase 85 U/L (45-117); Bilirubin,Total 1.1 mg/dl (0.2-1); Globulin 3.9 gm/dl (2.5-4.0); Total Protein 7.1 gm/dl (6.4-8.2); Troponin I < 0.015 ng/ml (0-0.045)
[2019-12-10] MEDS ORDERED: IOVERSOL 100ml IV PRN (12:42)
[2019-12-10 13:40] LABS: Appearance Urine Clear (Clear); Bilirubin Urine Negative (Negative); Blood Urine Negative (Negative); Color Urine Yellow; Glucose Urine UA Negative (Negative); Ketones Urine Negative (Negative); Leukocyte Esterase Urine Negative (Negative); Nitrite Urine Negative (Negative); Protein Urine Negative (Negative); Specific Gravity Urine 1.028 (1.000-1.030); Urobilinogen Urine Negative (Negative)
--- NOTE | 2019-12-10 13:44 | CT Scan Report ---
ABDOMEN AND PELVIS CT WITH IV CONTRAST CT DOSE: 1267.70 mGycm HISTORY: abd pain diffuse w/ fever TECHNIQUE: Multiaxial CT images of the abdomen and pelvis were performed following the use of intrave nous contrast. A dose lowering technique was utilized adhering to the principles of ALARA. COMPARISON STUDY: Abdomen and pelvis CT 07/30/2014. FINDINGS: The lung bases are essentially clear. No pneumoperitoneum. No pneumatosis. No suspicious ly tic or blastic osseous lesions. Small fat-containing umbilical hernia. This has slightly increased in size. Hepatic steatosis. No hepatic or splenic lesions. The adrenal glands, pancreas, and kidneys ar e unremarkable. No hydronephrosis. Mild bladder wall thickening. The prostate gland is mildly enlarge d. There is questionable minimal inflammatory change within the perirectal space. No definite rectal wall thickening. There are few prominent perirectal lymph nodes measuring subcentimeter in size. Infl ammatory change may also partially surround the bladder wall and prostate gland. No bowel wall thicke leticia or obstruction. Normal appendix. Cholelithiasis. No bladder wall thickening. No retroperitoneal lymphadenopathy. Mild calcified plaque within the normal caliber abdominal aorta. IMPRESSION: 1. There is questionable minimal inflammatory change within the deep pelvis primarily located at the perirectal space. This may also surround the mildly thickened bladder and enlarged prostate gland. Th erefore, this is nonspecific and could represent a low-grade proctitis, prostatitis, or cystitis. Cor relation with urinalysis recommended for further evaluation. 2. Hepatic steatosis. 3. Cholelithiasis. No gallbladder wall thickening. 4. No bowel wall thickening or obstruction. 5. Normal appendix. ACT 112: Negative or not required by law. Electronically signed by: Tam Lao M.D. 12/10/2019 1:43 PM
--- NOTE | 2019-12-10 16:12 | History & Physical Report ---
Date of Service December 10, 2019 Assessment & Plan (1) Prostatitis: This patient is a 54-year-old male with history of BPH, HTN, DM 2, MYRTLE, who had a prostate biopsy on Wednesday 12/06, who presents to the ER with complaint of chills since Tuesday morning. He called into his urologist office and was prescribed Cipro of which he took 3 doses, but the significant chills continued. His highest temperature at home was 99.7. He is also having some urinary straining in order to get the urine out, but is able to urinate when he sits down. No blood in the urine or dysuria. He is also having lower abdominal pain that is worse with sitting up. He has not had a bowel movement in over 2 days. He was found to have evidence of acute prostatitis versus proctitis on imaging consistent with his clinical presentation. -Admit to medical floor with telemetry given tachycardia and tachypnea, meets sirs criteria-with likely source of infection being prostate and/or proctitis. -Blood cultures drawn in the ER-we will follow -UA here is normal but was on Cipro prior to presentation-we will follow urine culture regardless -Continue IV Rocephin but increase dose to 2000 mg IV once daily given morbid obesity -Tylenol and ibuprofen as needed for chills and fevers -Abdominal pain is secondary to ongoing infection-pain control with Tylenol and ibuprofen -Will continue IV fluids with normal saline at 100 mL's per hour -Consult his urologist for further evaluation recommendations (2) Abdominal pain: As above, secondary to acute prostatitis -Bowel regimen with as needed milk of magnesia and MiraLAX ordered No other acute issues seen on imaging of the abdomen and pelvis (3) Type 2 diabetes mellitus: Typically very well controlled, last hemoglobin A1c was 5.9% in 07/2019 -Hold home metformin given dye load here, holding home Trulicity as not available here -Give NovoLog before meals and at bedtime on a sliding scale basis -Check hemoglobin A1c in the morning -Diabetic diet Accu-Cheks before meals and at bedtime (4) Hypertension: Blood pressures here are controlled -Continue home losartan (5) Severe obstructive sleep apnea: Will order CPAP for him while here-he is unsure of his settings -Will order CPAP for 10 cm H2O and can adjust as needed as per respiratory therapist recommendations (6) Obesity: BMI 35.2 -Needs counseling on weight loss Is also now on Trulicity which should help (7) Benign prostatic hyperplasia with urinary obstruction: With elevated PSA, hence prostate biopsy this past Tuesday -Continue tamsulosin -Watch for urinary retention (8) Hypokalemia: Potassium mildly low at 3.4 here -Replaced with potassium chloride 40 mEq p.o. x1 -Follow BMP in the morning (9) Hypomagnesemia: Magnesium low here at 1.5 -Replace with IV magnesium sulfate 2 g -Follow magnesium level in the morning (10) Knee osteoarthritis: Continue home ibuprofen (11) DVT prophylaxis: Lovenox SQ, SCDs Disposition-admit on observation to medical floor with telemetry History of Present Illness Chief Complaint: Chills Primary Care Provider: Estevan Lou MD This patient is a 54-year-old male with history of BPH, HTN, DM 2, MYRTLE, who had a prostate biopsy on Wednesday 12/06, who presents to the ER with complaint of chills since Tuesday. He called into his urologist office and was prescribed Cipro of which he took 3 doses, but the significant chills continued. His highest temperature at home was 99.7. He is also having some urinary straining in order to get the urine out, but is able to urinate when he sits down. No blood in the urine or dysuria. He is also having lower abdominal pain that is worse with sitting up. He has not had a bowel movement in over 2 days. When he has the rigors, he complains of shortness of breath, but in between he does not have any. In the ER, he was tachypneic and tachycardic at times, had a normal WBC count, and his UA was normal however he had been on Cipro x3 doses. Blood cultures were drawn, lactate was negative. Chest x-ray was negative for acute disease. CT of the abdomen/pelvis showed questionable minimal inflammatory change within the deep pelvis located at the perirectal space which also may surround the mildly thickened bladder and enlarged prostate gland-could represent low-grade proctitis, prostatitis, or cystitis. He will be admitted on observation for likely acute prostatitis for IV antibiotics after failure of outpatient treatment. Allergies Allergy/AdvReac Type Severity Reaction Status Date / Time No Known Allergies Allergy Unknown Verified 12/10/19 11:30 Home Medications Home Medications Medication Instructions Recorded Confirmed Type acetaminophen 500 mg tablet 500 mg PO DAILY PRN tab 02/24/19 12/10/19 History cholecalciferol (vitamin D3) 125 5,000 units PO FR cap 02/24/19 12/10/19 History mcg (5,000 unit) capsule ibuprofen 800 mg tablet 800 mg PO BID tab 02/24/19 12/10/19 History ciprofloxacin HCl 500 mg tablet 500 mg PO BID #10 tab 12/09/19 12/10/19 Rx dulaglutide [Trulicity] 0.75 mg SQ FR 12/10/19 12/10/19 History losartan 75 mg PO HS 12/10/19 12/10/19 History metformin 2,000 mg PO HS 12/10/19 12/10/19 History tamsulosin 0.4 mg PO HS 12/10/19 12/10/19 History Past Med/Surg History Medical History Benign prostatic hyperplasia with urinary obstruction (Acute) Diabetes Diabetes mellitus type 2, uncontrolled (Acute) If A1c is elevated consider Trulicity Elevated prostate specific antigen (PSA) (Acute) Erectile dysfunction (Acute) Mary's thyroiditis (Acute) Will check laboratory workup. History of pneumonia JUL 2018 - RESOLVED Hypertension Insomnia (Acute) Partial small bowel obstruction (Inactive) Severe obstructive sleep apnea (Acute) Sleep apnea CPAP Thyroid goiter Surgical History [place] [facility] [place]." LMA #5 inserted History of prostate biopsy History of rotator cuff surgery History of torsion of testis Family History Uncle Colon cancer Unknown Diabetes Hypertension Father Diabetes Prostate cancer Mother Hypertension Social History Preferred Language: Cymraes Communication Ability: Effective Screen Printer Helper Required: No Beliefs That Will Affect Care: None marital status: Current Living Situation: Family current occupational status: employed 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 Feels Safe at Home: Yes Smoking Status: Never smoker Hx Alcohol Use: Yes Alcohol type: beer Alcohol Intake Frequency: Rarely Hx Substance Use: No Review of Systems Review of Systems: All systems reviewed & are unremarkable except as noted in HPI & below Physical Exam Constitutional: WD/WN, vitals as above + ill appearing (With shaking rigors) and + obese Eyes: + anicteric sclerae ENMT: external ear and nose normal, oropharynx normal Neck: trachea midline, no thyromegaly Respiratory: + tachypneic Auscultation: lungs clear to auscultation bilaterally; no crackles, no rhonchi and no wheezes Cardiovascular: Rate/Rhythm: regular rhythm and + tachycardic Heart Sounds: no murmur Extremities: no calf tenderness and no edema Chest (Breasts): Chest: normal inspection of chest Gastrointestinal (Abdomen): Inspection/Auscultation: abdomen normal to inspection and normal bowel sounds; abdomen not distended Percussion/Palpation: + abdomen tender (In suprapubic region without guarding or rebound tenderness) Musculoskeletal: Extremities: extremities normal to inspection; no cyanosis and no clubbing Skin: no rashes, warm and dry Neurologic: moves all extremities and awake; no focal motor deficits Psychiatric: A+Ox3, euthymic affect Lymphatic: no lymphedema Results & Data Results & Data ([facility]) Vital Signs (Past 12 Hours) Vital Signs Temp Pulse Pulse Resp BP BP Pulse Ox 12/10/19 15:31 103 H 20 126/88 98 12/10/19 15:15 98 H 22 153/85 H 97 12/10/19 15:00 0 L 136/85 96 12/10/19 14:30 133/75 96 12/10/19 14:15 19 131/71 95 12/10/19 14:00 20 135/72 96 12/10/19 13:45 92 H 22 120/84 95 12/10/19 13:30 96 H 20 129/82 96 12/10/19 13:15 94 H 21 145/78 H 96 12/10/19 13:00 94 H 20 136/73 96 12/10/19 12:30 97 H 18 138/83 96 12/10/19 12:00 99 H 18 139/85 96 12/10/19 10:35 37.1 C 111 H 22 122/76 96 Laboratory Results 12/10/19 12/10/19 12/10/19 Range/Units 13:27 11:10 11:10 WBC (4.8-10.8) K/uL RBC (4.7-6.1) M/uL Hgb (14.0-18.0) g/dL Hct (42-52) % MCV (80-100) fL MCH (25-34) pg MCHC (32-36) g/dL RDW Std Deviation (36.4-46.3) fL RDW Coeff of Layla (11.5-14.5) % Plt Count (130-400) K/uL MPV (7.4-10.4) fL Immature Gran % (Auto) % Neut % (Auto) % Lymph % (Auto) % [place] % (Auto) % Eos % (Auto) % Baso % (Auto) % Immature Gran # (Auto) (0.00-0.02) K/uL Neut # (Auto) (1.4-6.5) K/uL Lymph # (Auto) (1.2-3.4) K/uL [place] # (Auto) (0.11-0.59) K/uL Eos # (Auto) (0-0.5) K/uL Baso # (Auto) (0-0.2) K/uL PT (9.0-12.0) Seconds INR (0.9-1.1) APTT (21.0-31.0) Seconds PTT Ratio Sodium 135 L (136-145) mmol/L Potassium 3.4 L (3.5-5.1) mmol/L Chloride 104 (98-107) mmol/L Carbon Dioxide 23 (21-32) mmol/L Anion Gap 8.0 (3-11) BUN 14 (7-18) mg/dl Creatinine 1.10 (0.6-1.4) mg/dl Est Cr Clr Drug Dosing Not Reportable Est GFR ( Amer) 87.1 Est GFR (Non-Af Amer) 75.2 BUN/Creatinine Ratio 13.1 (10-20) Glucose 180 H (70-99) mg/dl Lactate 1.2 (0.4-2.0) mmol/L Calcium 8.4 L (8.5-10.1) mg/dl Magnesium 1.5 L (1.8-2.4) mg/dl Total Bilirubin 1.1 H (0.2-1) mg/dl AST 22 (15-37) U/L ALT 46 (12-78) U/L Alkaline Phosphatase 85 (45-117) U/L Troponin I < 0.015 (0-0.045) ng/ml Total Protein 7.1 (6.4-8.2) gm/dl Albumin 3.2 L (3.4-5.0) gm/dl Globulin 3.9 (2.5-4.0) gm/dl Albumin/Globulin Ratio 0.8 L (0.9-2) Urine Color Yellow Urine Appearance Clear (Clear) Urine pH 6.0 (4.5-7.5) Ur Specific [place] 1.028 (1.000-1.030) Urine Protein Negative (Negative) Urine Glucose (UA) Negative (Negative) Urine Ketones Negative (Negative) Urine Blood Negative (Negative) Urine Nitrite Negative (Negative) Urine Bilirubin Negative (Negative) Urine Urobilinogen Negative (Negative) Ur Leukocyte Esterase Negative (Negative) 12/10/19 12/10/19 Range/Units 11:10 11:10 WBC 7.92 (4.8-10.8) K/uL RBC 4.76 (4.7-6.1) M/uL Hgb 13.7 L (14.0-18.0) g/dL Hct 39.1 L (42-52) % MCV 82.1 (80-100) fL MCH 28.8 (25-34) pg MCHC 35.0 (32-36) g/dL RDW Std Deviation 42.7 (36.4-46.3) fL RDW Coeff of Layla 14.2 (11.5-14.5) % Plt Count 132 (130-400) K/uL MPV 10.2 (7.4-10.4) fL Immature Gran % (Auto) 0.5 % Neut % (Auto) 90.7 % Lymph % (Auto) 2.1 % [place] % (Auto) 6.6 % Eos % (Auto) 0.0 % Baso % (Auto) 0.1 % Immature Gran # (Auto) 0.04 H (0.00-0.02) K/uL Neut # (Auto) 7.18 H (1.4-6.5) K/uL Lymph # (Auto) 0.17 L (1.2-3.4) K/uL [place] # (Auto) 0.52 (0.11-0.59) K/uL Eos # (Auto) 0.00 (0-0.5) K/uL Baso # (Auto) 0.01 (0-0.2) K/uL PT 13.1 H (9.0-12.0) Seconds INR 1.3 H (0.9-1.1) APTT 34.7 H (21.0-31.0) Seconds PTT Ratio 1.2 Sodium (136-145) mmol/L Potassium (3.5-5.1) mmol/L Chloride (98-107) mmol/L Carbon Dioxide (21-32) mmol/L Anion Gap (3-11) BUN (7-18) mg/dl Creatinine (0.6-1.4) mg/dl Est Cr Clr Drug Dosing Est GFR ( Amer) Est GFR (Non-Af Amer) BUN/Creatinine Ratio (10-20) Glucose (70-99) mg/dl Lactate (0.4-2.0) mmol/L Calcium (8.5-10.1) mg/dl Magnesium (1.8-2.4) mg/dl Total Bilirubin (0.2-1) mg/dl AST (15-37) U/L ALT (12-78) U/L Alkaline Phosphatase (45-117) U/L Troponin I (0-0.045) ng/ml Total Protein (6.4-8.2) gm/dl Albumin (3.4-5.0) gm/dl Globulin (2.5-4.0) gm/dl Albumin/Globulin Ratio (0.9-2) Urine Color Urine Appearance (Clear) Urine pH (4.5-7.5) Ur Specific [place] (1.000-1.030) Urine Protein (Negative) Urine Glucose (UA) (Negative) Urine Ketones (Negative) Urine Blood (Negative) Urine Nitrite (Negative) Urine Bilirubin (Negative) Urine Urobilinogen (Negative) Ur Leukocyte Esterase (Negative) Diagnostic Findings Chest x-ray image personally reviewed by me and agree with phone report: XR chest 1V portable CLINICAL HISTORY: SEPSIS dyspnea COMPARISON STUDY: 09/06/2018 FINDINGS: The bones soft tissues and hemidiaphragms are normal. The cardiomediastinal silhouette is normal. The lungs are clear. The pulmonary vasculature is normal. IMPRESSION: Negative chest. ABDOMEN AND PELVIS CT WITH IV CONTRAST CT DOSE: 1267.70 mGycm HISTORY: abd pain diffuse w/ fever TECHNIQUE: Multiaxial CT images of the abdomen and pelvis were performed following the use of intravenous contrast. A dose lowering technique was utilized adhering to the principles of ALARA. COMPARISON STUDY: Abdomen and pelvis CT 07/30/2014. FINDINGS: The lung bases are essentially clear. No pneumoperitoneum. No pneumatosis. No suspicious lytic or blastic osseous lesions. Small fat-con taining umbilical hernia. This has slightly increased in size. Hepatic steatosis. No hepatic or splenic lesions. The adrenal glands, pancreas, and kidneys are unremarkable. No hydronephrosis. Mild bladder wall thickening. The prostate gland is mildly enlarged. There is questionable minimal inflammatory change within the perirectal space. No definite rectal wall thickening. There are few prominent perirectal lymph nodes measuring subcentimeter in size. Inflammatory change may also partially surround the bladder wall and prostate gland. No bowel wall thickening or obstruction. Normal appendix. Cholelithiasis. No bladder wall thickening. No retroperitoneal lymphadenopathy. Mild calcified plaque within the normal caliber abdominal aorta. IMPRESSION: 1. There is questionable minimal inflammatory change within the deep pelvis primarily located at the perirectal space. This may also surround the mildly thickened bladder and enlarged prostate gland. Therefore, this is nonspecific and could represent a low-grade proctitis, prostatitis, or cystitis. Correlation with urinalysis recommended for further evaluation. 2. Hepatic steatosis. 3. Cholelithiasis. No gallbladder wall thickening. 4. No bowel wall thickening or obstruction. 5. Normal appendix. ECG Additional Comments: ECG with sinus tachycardia, no ischemic changes Code Status & VTE Plan Code Status Full code VTE Prophylaxis Plan VTE Prophylaxis will be ordered: Yes PG Care Time/CCT Total # of Minutes Spent Total Time Spent with Patient: Total time spent is greater than 50% in coordination of care (as documented) at patient's floor/unit and/or counseling patient: Coding Level of Care Code 12610 OBS Care - Level 3 Diagnoses Prostatitis N41.9 Prostatitis type: unspecified Abdominal pain R10.9 Abdominal location: unspecified location Type 2 diabetes mellitus E11.9 Hypertension I10 Severe obstructive sleep apnea G47.33 Obesity E66.9 Benign prostatic hyperplasia with urinary obstruction N40.1; N13.8 Hypokalemia E87.6 Hypomagnesemia E83.42 Knee osteoarthritis M17.10 DVT prophylaxis Z29.9 (1) Prostatitis Prostatitis type: unspecified Qualified Code(s): N41.9 - Inflammatory disease of prostate, unspecified (2) Abdominal pain Abdominal location: unspecified location Qualified Code(s): R10.9 - Unspecified abdominal pain
[2019-12-10] MEDS ORDERED: LORazepam 1 MG TAB SL STA (16:20)
[2019-12-10] MEDS ORDERED: LORazepam 1 MG TAB ONE (16:21)
--- NOTE | 2019-12-10 16:52 | XRay Report ---
XR chest 1V portable CLINICAL HISTORY: sob dyspnea COMPARISON STUDY: No previous studies for comparison. FINDINGS: The bones soft tissues and hemidiaphragms are normal. The cardiomediastinal silhouette is n ormal. The lungs are clear. The pulmonary vasculature is normal. IMPRESSION: Negative chest. ACT 112: Negative or not required by law. The above report was generated using voice recognition software. It may contain grammatical, syntax or spelling errors. Electronically signed by: Tod Dyson M.D. 12/10/2019 4:51 PM
[2019-12-10] MEDS ORDERED: CARBOHYDRATES FOR HYPOGLYCEMIA PO PRN (18:07)
[2019-12-10] MEDS ORDERED: ALUMINUM/MAGNESIUM SUSP 30 ML UDC PO PRN (18:07)
[2019-12-10] MEDS ORDERED: ONDANSETRON INJ 2 MG/ML 2 ML VIAL IV PRN (18:07)
[2019-12-10] MEDS ORDERED: GLUCOSE 40% GEL 15 GM TUBE PO PRN (18:07)
[2019-12-10] MEDS ORDERED: GLUCOSE 10 TABS/TUBE PO PRN (18:07)
[2019-12-10] MEDS ORDERED: GLUCAGON FOR INJ 1 MG VIAL SQ PRN (18:07)
[2019-12-10] MEDS ORDERED: POTASSIUM CHLORIDE 20 MEQ TABCR PO STA (18:07)
[2019-12-10] MEDS ORDERED: POLYETHYLENE (MIRALAX) 17 GM PACK PO PRN (18:07)
[2019-12-10] MEDS ORDERED: DEXTROSE 50% 50 ML SYRINGE IV PRN (18:07)
[2019-12-10] MEDS ORDERED: MAGNESIUM HYDROXIDE SUSP 30 ML UDC PO PRN (18:07)
[2019-12-10] MEDS: SODIUM CHLORIDE 0.9% 1000ML 1,000 ML IV SCH (18:19)
[2019-12-10] MEDS: MAGNESIUM SULFATE / D5W 1 GM/100 ML BAG IV SCH ×2 (19:39→21:41)
[2019-12-10] MEDS: INSULIN ASPART 100 UNITS/ML 3 ML PEN SC SCH ×2 (19:39→21:46)
[2019-12-10] MEDS: IBUPROFEN 800 MG TAB PO SCH (21:39)
[2019-12-10] MEDS: LOSARTAN POTASSIUM 25 MG TAB PO SCH (21:39)
[2019-12-10] MEDS: ENOXAPARIN INJ 40 MG/0.4 ML SYR SQ SCH (21:40)
[2019-12-10] MEDS: TAMSULOSIN HCL 0.4 MG CAP PO SCH (21:40)
[2019-12-10] MEDS: ACETAMINOPHEN 325 MG TAB PO PRN (21:44)
[2019-12-11] MEDS: SODIUM CHLORIDE 0.9% 1000ML 1,000 ML IV SCH ×2 (04:16→13:33)
[2019-12-11 07:53] LABS: Basophils # (auto) 0.01 K/uL (0-0.2); Basophils % (auto) 0.2 %; Hematocrit (blood only) 44.3 % (42-52); Immature Granulocytes # (auto) 0.01 K/uL (0.00-0.02); Immature Granulocytes % (auto) 0.2 %; Lymphocytes # (auto) 0.35 K/uL (1.2-3.4); Lymphocytes % (auto) 6.1 %; Mean Corpuscular Hemoglobin 28.4 pg (25-34); Mean Corpuscular Hgb Conc 33.9 g/dL (32-36); Mean Corpuscular Volume 83.7 fL (80-100); Mean Platelet Volume 10.2 fL (7.4-10.4); Monocytes # (auto) 0.27 K/uL (0.11-0.59); Monocytes % (auto) 4.7 %; Neutrophils # (auto) 5.13 K/uL (1.4-6.5); Neutrophils % (auto) 88.8 %; Platelet Count 108 K/uL (130-400); RDW Coefficient of Variation 14.5 % (11.5-14.5); RDW Standard Deviation 44.7 fL (36.4-46.3); Red Blood Count 5.29 M/uL (4.7-6.1); White Blood Count 5.77 K/uL (4.8-10.8)
--- NOTE | 2019-12-11 07:56 | Urology Consultation ---
Date of Consultation December 11, 2019 Assessment & Plan (1) Elevated prostate specific antigen (PSA): (2) Prostatitis: Post prostatectomy sepsis Recovering appropriately with ceftriaxone and IV hydration Likely requires another day of supportive care with IV fluids/antibiotics as his heart rate is just now come under 100 He has been afebrile Anticipate cultures will likely be negative given his Cipro immediately prior to cultures Waiting on pathology History of Present Illness Attending Physician: Andria Connors MD History of Present Illness 54-year-old male status post prostate biopsy on Tuesday He experienced chills/rigors/fevers over the weekend and presented to the emergency room yesterday morning He was having difficulty ambulating at that time He was afebrile, he does not have a significant leukocytosis but he was tachycardic to 150s and hypertensive UA was unremarkable, however he had started Cipro on Tuesday Of note, he was to take Cipro prior to the prostate biopsy and did not do so nor start it immediately after the biopsy Subjectively improved todayseverity of chills/rigors was decreased overnight Allergies Allergy/AdvReac Type Severity Reaction Status Date / Time No Known Allergies Allergy Unknown Verified 12/10/19 11:30 Home Medications Home Medications Medication Instructions Recorded Confirmed Type acetaminophen 500 mg tablet 500 mg PO DAILY PRN tab 02/24/19 12/10/19 History cholecalciferol (vitamin D3) 125 5,000 units PO FR cap 02/24/19 12/10/19 History mcg (5,000 unit) capsule ibuprofen 800 mg tablet 800 mg PO BID tab 02/24/19 12/10/19 History ciprofloxacin HCl 500 mg tablet 500 mg PO BID #10 tab 12/09/19 12/10/19 Rx dulaglutide [Trulicity] 0.75 mg SQ FR 12/10/19 12/10/19 History losartan 75 mg PO HS 12/10/19 12/10/19 History metformin 2,000 mg PO HS 12/10/19 12/10/19 History tamsulosin 0.4 mg PO HS 12/10/19 12/10/19 History Patient History Medical History Benign prostatic hyperplasia with urinary obstruction (Acute) Diabetes Diabetes mellitus type 2, uncontrolled (Acute) If A1c is elevated consider Trulicity Elevated prostate specific antigen (PSA) (Acute) Erectile dysfunction (Acute) Mary's thyroiditis (Acute) Will check laboratory workup. History of pneumonia JUL 2018 - RESOLVED Hypertension Insomnia (Acute) Partial small bowel obstruction (Inactive) Severe obstructive sleep apnea (Acute) Sleep apnea CPAP Thyroid goiter Surgical History History of arthroscopy of left knee Done at [facility] [place] - "Good mask vent." LMA #5 inserted History of prostate biopsy History of rotator cuff surgery History of torsion of testis Family History Uncle Colon cancer Unknown Diabetes Hypertension Father Diabetes Prostate cancer Mother Hypertension Social History Preferred Language: Scottish Communication Ability: Effective Load Manager Required: No Beliefs That Will Affect Care: None marital status: Current Living Situation: Family current occupational status: employed 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 Feels Safe at Home: Yes Smoking Status: Never smoker Hx Alcohol Use: Yes Alcohol type: beer Alcohol Intake Frequency: Rarely Hx Substance Use: No Review of Systems Constitutional: + fever, + chills and + body aches Ear, Nose, Mouth, Throat: no hearing loss Respiratory: no cough and no dyspnea Cardiovascular: + palpitations; no chest pain Gastrointestinal: no abdominal pain and no vomiting Genitourinary: no dysuria and no hematuria Musculoskeletal: no back pain Integumentary: no rash Psychiatric: no behavioral changes, no anxiety and no confusion Physical Exam Constitutional: well developed and well nourished Neck: neck nontender Respiratory: normal respiratory effort; no respiratory distress and does not use accessory muscles Cardiovascular: Rate/Rhythm: regular rate Vessels: radial pulses present Extremities: no edema Gastrointestinal (Abdomen): Inspection/Auscultation: abdomen normal to inspection Percussion/Palpation: abdomen soft; abdomen nontender and no guarding Musculoskeletal: Head/Neck/Chest: normocephalic and head atraumatic Extremities: extremities normal to inspection Skin: no rashes and no lesions Trauma: no evidence of skin trauma Neurologic: awake; not obtunded Speech / Cognition: normal speech Motor/Sensory: no tremor Psychiatric: Orientation: alert and oriented x 3 Genitourinary: no CVA tenderness Lymphatic: no lymphadenopathy Results & Data Vital Signs (Past 12 Hours) Vital Signs Temp Pulse Pulse Resp BP BP Pulse Ox 12/11/19 07:31 36.6 C 96 H 18 128/79 100 12/11/19 04:00 36.5 C 89 18 101/62 95 12/11/19 03:21 82 18 98 12/11/19 00:03 36.7 C 100 H 20 104/67 96 12/10/19 22:20 102 H 12/10/19 21:45 102 H 18 97 PG Care Time/CCT Total # of Minutes Spent Total Time Spent with Patient: Total time spent is greater than 50% in coordination of care (as documented) at patient's floor/unit and/or counseling patient: Coding Level of Care Code None Diagnoses Elevated prostate specific antigen (PSA) R97.20 Prostatitis N41.9 Prostatitis type: unspecified (1) Prostatitis Prostatitis type: unspecified Qualified Code(s): N41.9 - Inflammatory disease of prostate, unspecified
[2019-12-11 07:58] LABS: Estimated Average Glucose 131 mg/dl; Hemoglobin A1C 6.2 % (4.5-5.6)
[2019-12-11 08:17] LABS: BUN Creatinine Ratio 15.3 (10-20); Calcium 8.9 mg/dl (8.5-10.1); Creatinine Clr Calc Pharmacy 101.6 ml/min; Est GFR (African American) 96.6; Est GFR (Non-African American) 83.3; Magnesium 2.3 mg/dl (1.8-2.4); Potassium 3.7 mmol/L (3.5-5.1)
[2019-12-11] MEDS: INSULIN ASPART 100 UNITS/ML 3 ML PEN SC SCH ×4 (09:19→19:57)
[2019-12-11] MEDS: IBUPROFEN 800 MG TAB PO SCH ×2 (10:13→19:56)
[2019-12-11] MEDS ORDERED: LORazepam 1 MG TAB SL STA (11:03)
--- NOTE | 2019-12-11 11:31 | Electrocardiogram Report ---
Test Reason : Blood Pressure : / mmHG Vent. Rate : 105 BPM Atrial Rate : 105 BPM P-R Int : 162 ms QRS Dur : 102 ms QT Int : 318 ms P-R-T Axes : 057 028 037 degrees QTc Int : 420 ms Poor data quality, interpretation may be adversely affected Sinus tachycardia Otherwise normal ECG When compared with ECG of 29-JUN-2018 11:45, Vent. rate has increased BY 35 BPM Confirmed by Kiel Dennis ([id number]) on 12/11/2019 11:30:58 AM Referred By: REFERRED SELF Confirmed By:Kiel Dennis
--- NOTE | 2019-12-11 11:52 | Electrocardiogram Report ---
Test Reason : Blood Pressure : / mmHG Vent. Rate : 133 BPM Atrial Rate : 133 BPM P-R Int : 146 ms QRS Dur : 092 ms QT Int : 282 ms P-R-T Axes : 060 038 059 degrees QTc Int : 419 ms Poor data quality, interpretation may be adversely affected Sinus tachycardia Otherwise normal ECG When compared with ECG of 10-DEC-2019 16:17, (unconfirmed) No significant change Confirmed by Kiel Dennis ([id number]) on 12/11/2019 11:51:43 AM Referred By: REFERRED SELF Confirmed By:Kiel Dennis
--- NOTE | 2019-12-11 12:07 | Hospitalist Progress Note ---
Date of Service December 11, 2019 Assessment & Plan (1) Prostatitis: This patient is a 54-year-old male with history of BPH, HTN, DM 2, MYRTLE, who had a prostate biopsy on Wednesday 12/06, who presents to the ER with complaint of chills since Tuesday morning. He called into his urologist office and was prescribed Cipro of which he took 3 doses, but the significant chills continued. His highest temperature at home was 99.7. He is also having some urinary straining in order to get the urine out, but is able to urinate when he sits down. No blood in the urine or dysuria. He is also having lower abdominal pain that is worse with sitting up. He has not had a bowel movement in over 3 days. He was found to have evidence of acute prostatitis versus proctitis on imaging consistent with his clinical presentation. * Continue to monitor on telemetry -- has been SR 90s this morning with SR 70-80bpm overnight. No events * Meets sirs criteria -- likely source being prostate/prostatitis * BCx NGTD -- continue to monitor * UA without abn but patient did receive Cipro prior to presentation. Follow cultures * Continue Rocephin IV -- would need prolonged course abx if tx prostatitis * Tylenol/ibuprofen prn chills/fever * Urology consulted -- appreciate assistance * Continue supportive treatment with IVF, pain control for now (2) Abdominal pain: * As above, secondary to acute prostatitis * Bowel regimen with as needed milk of magnesia and MiraLAX ordered * No other acute issues seen on imaging of the abdomen and pelvis * Will order additional miralax/colace for constipation -- continue to monitor (3) Type 2 diabetes mellitus: * Typically very well controlled, last hemoglobin A1c was 5.9% in 07/2019 * Hold home metformin given dye load here, holding home Trulicity as not available here * Give NovoLog before meals and at bedtime on a sliding scale basis * A1c 6.2 up from 5.9 * Diabetic diet * Accu-Cheks before meals and at bedtime * Blood sugars have been acceptable * Continue to monitor (4) Hypertension: * Chronic. Stable. * BP currently 131/76 although did have episode of low BP of 104/67 last evening (12/09) * Continue home losartan * Continue to monitor (5) Severe obstructive sleep apnea: * Did not bring from home -- ordered CPAP HS. Unsure of settings -- ordered at 10cm H20 and adjust as needed per RT (6) Obesity: * BMI 35.2 * Counseling on weight loss --> also recently started on Trulicity, which should help (7) Benign prostatic hyperplasia with urinary obstruction: * With elevated PSA, hence prostate biopsy this past Tuesday * Continue tamsulosin * Watch for urinary retention (8) Hypokalemia: * Potassium mildly low at 3.4 here on admission. Given supplementation * RESOLVED -- K 3.7 * Follow BMP (9) Hypomagnesemia: * Magnesium low here at 1.5 on admission -- given 2gm IV * Mag improved to 2.3 (10) Knee osteoarthritis: * Continue home ibuprofen (11) Neuropathy: * Not new -- May be associate to DM, but will add B12 to AM labs for described glove/stocking paresthesias (12) DVT prophylaxis: * Lovenox SQ, SCDs Disposition-admit on observation to medical floor with telemetry Admission and Anticipated Discharge Date Admission Date: December 10, 2019 Supervising Physician Co-Signing Physician Notes Attending Attestation - Chart reviewed, care plan d/w TRMEAYNE Parish. I agree w/ the elmos components of her documentation. 54yo male s/p prostate biopsy last week. Now with probable prostatitis. Remains on rocephin. If patient fails to improve with such would need abx broadened to include hospital-acquired gram negatives given the instrumentation last week. Cont supportive care. Elio Breaux MD Subjective Patient states he had a little bit of a headache this morning that resolved with motrin. Also states his appetite has increased, and he feels he has been pushing fluids, but continues to get chills and states he feels like he can't get warm. Denies fever. Denies n/v at this time but states he does have some weakness when ambulating over the past several days. Discussed getting PT/OT evaluations. No bowel movement since admission, but did receive miralax this morning but denies pain. He states he was to receive pre-op cipro prior to his procedure and that this was not given. He states that he was then supposed to get antibiotics after his procedure and that was also not given. He believes that this may be why he currently is dealing with this issue. Of note, he states was only able to get about one hour of sleep last evening and would like to try something to get some rest, secondary to neighbor in room with multiple issues. He states he was given something in the emergency room that did help with this and would be willing to try this again to see if he is able to get some rest. Denies chest pain, shortness of breath, abdominal fullness, visual disturbances, urinary frequency/urgency or hematuria at this time. He states he believes he is emptying his bladder completely and does not feel post-void fullness or incomplete emptying. Review of Systems Review of Systems: All systems reviewed & are unremarkable except as noted in HPI & below Physical Exam Constitutional: well developed, well nourished and + ill appearing; no acute distress and + uncomfortable diaphoretic Eyes: PERRL, conjunctivae normal, anicteric sclerae Neck: trachea midline, no thyromegaly Respiratory: normal respiratory effort, lungs clear to auscultation Cardiovascular: Rate/Rhythm: + tachycardic Heart Sounds: normal S1 and normal S2; no murmur Vessels: no JVD Extremities: no edema Gastrointestinal (Abdomen): Inspection/Auscultation: abdomen normal to inspection and normal bowel sounds; abdomen not distended Percussion/Palpation: + abdomen tender (suprapubic region); no guarding and abdomen not rigid Musculoskeletal: no cyanosis or clubbing, extremities motor strength 5/5 Head/Neck/Chest: normocephalic and head atraumatic Skin: warm, moist Neurologic: patellar DTR's 2+ bilat, sensation intact Genitourinary: urinal with approximately 150cc dark yellow urine Lymphatic: no cervical or axillary lymphadenopathy Results & Data Results & Data ([facility]) Vital Signs (Past 12 Hours) Vital Signs Temp Pulse Pulse Resp BP BP Pulse Ox 12/11/19 11:20 37.0 C 107 H 20 131/76 96 12/11/19 07:31 36.6 C 96 H 18 128/79 100 12/11/19 04:00 36.5 C 89 18 101/62 95 12/11/19 03:21 82 18 98 Laboratory Results 12/11/19 12/11/19 12/11/19 Range/Units 11:41 07:39 07:24 WBC (4.8-10.8) K/uL RBC (4.7-6.1) M/uL Hgb (14.0-18.0) g/dL Hct (42-52) % MCV (80-100) fL MCH (25-34) pg MCHC (32-36) g/dL RDW Std Deviation (36.4-46.3) fL RDW Coeff of Layla (11.5-14.5) % Plt Count (130-400) K/uL MPV (7.4-10.4) fL Immature Gran % (Auto) % Neut % (Auto) % Lymph % (Auto) % Billings % (Auto) % Eos % (Auto) % Baso % (Auto) % Immature Gran # (Auto) (0.00-0.02) K/uL Neut # (Auto) (1.4-6.5) K/uL Lymph # (Auto) (1.2-3.4) K/uL Billings # (Auto) (0.11-0.59) K/uL Eos # (Auto) (0-0.5) K/uL Baso # (Auto) (0-0.2) K/uL Sodium (136-145) mmol/L Potassium (3.5-5.1) mmol/L Chloride (98-107) mmol/L Carbon Dioxide (21-32) mmol/L Anion Gap (3-11) BUN (7-18) mg/dl Creatinine (0.6-1.4) mg/dl Est Cr Clr Drug Dosing ml/min Est GFR ( Amer) Est GFR (Non-Af Amer) BUN/Creatinine Ratio (10-20) Glucose (70-99) mg/dl POC Glucose 191 H 136 H (70-99) mg/dl Estimat Average Glucose 131 mg/dl Hemoglobin A1c 6.2 H (4.5-5.6) % Calcium (8.5-10.1) mg/dl Magnesium (1.8-2.4) mg/dl Urine Color Urine Appearance (Clear) Urine pH (4.5-7.5) Ur Specific Jackson (1.000-1.030) Urine Protein (Negative) Urine Glucose (UA) (Negative) Urine Ketones (Negative) Urine Blood (Negative) Urine Nitrite (Negative) Urine Bilirubin (Negative) Urine Urobilinogen (Negative) Ur Leukocyte Esterase (Negative) 12/11/19 12/11/19 12/10/19 Range/Units 07:24 07:24 21:46 WBC 5.77 (4.8-10.8) K/uL RBC 5.29 (4.7-6.1) M/uL Hgb 15.0 (14.0-18.0) g/dL Hct 44.3 (42-52) % MCV 83.7 (80-100) fL MCH 28.4 (25-34) pg MCHC 33.9 (32-36) g/dL RDW Std Deviation 44.7 (36.4-46.3) fL RDW Coeff of Layla 14.5 (11.5-14.5) % Plt Count 108 L (130-400) K/uL MPV 10.2 (7.4-10.4) fL Immature Gran % (Auto) 0.2 % Neut % (Auto) 88.8 % Lymph % (Auto) 6.1 % Billings % (Auto) 4.7 % Eos % (Auto) 0.0 % Baso % (Auto) 0.2 % Immature Gran # (Auto) 0.01 (0.00-0.02) K/uL Neut # (Auto) 5.13 (1.4-6.5) K/uL Lymph # (Auto) 0.35 L (1.2-3.4) K/uL Billings # (Auto) 0.27 (0.11-0.59) K/uL Eos # (Auto) 0.00 (0-0.5) K/uL Baso # (Auto) 0.01 (0-0.2) K/uL Sodium 137 (136-145) mmol/L Potassium 3.7 (3.5-5.1) mmol/L Chloride 107 (98-107) mmol/L Carbon Dioxide 24 (21-32) mmol/L Anion Gap 6.0 (3-11) BUN 16 (7-18) mg/dl Creatinine 1.01 (0.6-1.4) mg/dl Est Cr Clr Drug Dosing 101.6 ml/min Est GFR ( Amer) 96.6 Est GFR (Non-Af Amer) 83.3 BUN/Creatinine Ratio 15.3 (10-20) Glucose 135 H (70-99) mg/dl POC Glucose 219 H (70-99) mg/dl Estimat Average Glucose mg/dl Hemoglobin A1c (4.5-5.6) % Calcium 8.9 (8.5-10.1) mg/dl Magnesium 2.3 (1.8-2.4) mg/dl Urine Color Urine Appearance (Clear) Urine pH (4.5-7.5) Ur Specific Jackson (1.000-1.030) Urine Protein (Negative) Urine Glucose (UA) (Negative) Urine Ketones (Negative) Urine Blood (Negative) Urine Nitrite (Negative) Urine Bilirubin (Negative) Urine Urobilinogen (Negative) Ur Leukocyte Esterase (Negative) 12/10/19 12/10/19 Range/Units 18:21 13:27 WBC (4.8-10.8) K/uL RBC (4.7-6.1) M/uL Hgb (14.0-18.0) g/dL Hct (42-52) % MCV (80-100) fL MCH (25-34) pg MCHC (32-36) g/dL RDW Std Deviation (36.4-46.3) fL RDW Coeff of Layla (11.5-14.5) % Plt Count (130-400) K/uL MPV (7.4-10.4) fL Immature Gran % (Auto) % Neut % (Auto) % Lymph % (Auto) % Billings % (Auto) % Eos % (Auto) % Baso % (Auto) % Immature Gran # (Auto) (0.00-0.02) K/uL Neut # (Auto) (1.4-6.5) K/uL Lymph # (Auto) (1.2-3.4) K/uL Billings # (Auto) (0.11-0.59) K/uL Eos # (Auto) (0-0.5) K/uL Baso # (Auto) (0-0.2) K/uL Sodium (136-145) mmol/L Potassium (3.5-5.1) mmol/L Chloride (98-107) mmol/L Carbon Dioxide (21-32) mmol/L Anion Gap (3-11) BUN (7-18) mg/dl Creatinine (0.6-1.4) mg/dl Est Cr Clr Drug Dosing ml/min Est GFR ( Amer) Est GFR (Non-Af Amer) BUN/Creatinine Ratio (10-20) Glucose (70-99) mg/dl POC Glucose 124 H (70-99) mg/dl Estimat Average Glucose mg/dl Hemoglobin A1c (4.5-5.6) % Calcium (8.5-10.1) mg/dl Magnesium (1.8-2.4) mg/dl Urine Color Yellow Urine Appearance Clear (Clear) Urine pH 6.0 (4.5-7.5) Ur Specific Jackson 1.028 (1.000-1.030) Urine Protein Negative (Negative) Urine Glucose (UA) Negative (Negative) Urine Ketones Negative (Negative) Urine Blood Negative (Negative) Urine Nitrite Negative (Negative) Urine Bilirubin Negative (Negative) Urine Urobilinogen Negative (Negative) Ur Leukocyte Esterase Negative (Negative) PG Care Time/CCT Total # of Minutes Spent Total Time Spent with Patient: Total time spent is greater than 50% in coordination of care (as documented) at patient's floor/unit and/or counseling patient: Coding Level of Care Code 64192 Subseq Hosp Care Lvl 2 Diagnoses Prostatitis N41.9 Prostatitis type: unspecified Abdominal pain R10.9 Abdominal location: unspecified location Type 2 diabetes mellitus E11.9 Hypertension I10 Severe obstructive sleep apnea G47.33 Obesity E66.9 Benign prostatic hyperplasia with urinary obstruction N40.1; N13.8 Hypokalemia E87.6 Hypomagnesemia E83.42 Knee osteoarthritis M17.10 Neuropathy G62.9 DVT prophylaxis Z29.9 (1) Prostatitis Prostatitis type: unspecified Qualified Code(s): N41.9 - Inflammatory disease of prostate, unspecified (2) Abdominal pain Abdominal location: unspecified location Qualified Code(s): R10.9 - Unspecified abdominal pain
[2019-12-11] MEDS ORDERED: DOCUSATE SODIUM 100 MG CAP PO ONE (12:39)
[2019-12-11] MEDS: cefTRIAXone SODIUM 2,000 MG in DEXTROSE 5% 50 ML IV SCH (13:11)
[2019-12-11] MEDS: POLYETHYLENE (MIRALAX) 17 GM PACK PO SCH (13:33)
[2019-12-11] MEDS: LOSARTAN POTASSIUM 25 MG TAB PO SCH (19:55)
[2019-12-11] MEDS: ACETAMINOPHEN 325 MG TAB PO PRN (19:56)
[2019-12-11] MEDS: TAMSULOSIN HCL 0.4 MG CAP PO SCH (19:57)
[2019-12-11] MEDS: ENOXAPARIN INJ 40 MG/0.4 ML SYR SQ SCH (19:57)
[2019-12-12] MEDS: SODIUM CHLORIDE 0.9% 1000ML 1,000 ML IV SCH ×2 (00:08→12:04)
[2019-12-12] MEDS: POLYETHYLENE (MIRALAX) 17 GM PACK PO SCH (08:29)
[2019-12-12] MEDS: IBUPROFEN 800 MG TAB PO SCH (08:30)
[2019-12-12] MEDS: INSULIN ASPART 100 UNITS/ML 3 ML PEN SC SCH ×2 (08:33→13:01)
[2019-12-12 09:12] LABS: Hematocrit (blood only) 38.9 % (42-52); Hemoglobin 13.7 g/dL (14.0-18.0); Mean Corpuscular Hemoglobin 28.7 pg (25-34); Mean Corpuscular Hgb Conc 35.2 g/dL (32-36); Mean Corpuscular Volume 81.6 fL (80-100); Mean Platelet Volume 10.2 fL (7.4-10.4); Platelet Count 110 K/uL (130-400); RDW Coefficient of Variation 14.4 % (11.5-14.5); RDW Standard Deviation 43.1 fL (36.4-46.3); Red Blood Count 4.77 M/uL (4.7-6.1); White Blood Count 4.04 K/uL (4.8-10.8)
[2019-12-12 09:47] LABS: BUN Creatinine Ratio 13.4 (10-20); Calcium 8.9 mg/dl (8.5-10.1); Creatinine Clr Calc Pharmacy 110.4 ml/min; Est GFR (African American) 106.7; Est GFR (Non-African American) 92.1; Potassium 3.7 mmol/L (3.5-5.1)
[2019-12-12 09:57] LABS: Thyroid Stimulating Hormone 1.23 uIu/ml (0.300-4.500)
[2019-12-12 10:02] LABS: Platelet Estimate Decreased (Normal)
[2019-12-12] MEDS: cefTRIAXone SODIUM 2,000 MG in DEXTROSE 5% 50 ML IV SCH (11:58)
--- NOTE | 2019-12-12 12:28 | Discharge Summary ---
Date of Service December 12, 2019 Admission HPI Per Admitting Provider This patient is a 54-year-old male with history of BPH, HTN, DM 2, MYRTLE, who had a prostate biopsy on Wednesday 12/06, who presents to the ER with complaint of chills since Tuesday morning. He called into his urologist office and was prescribed Cipro of which he took 3 doses, but the significant chills continued. His highest temperature at home was 99.7. He is also having some urinary straining in order to get the urine out, but is able to urinate when he sits down. No blood in the urine or dysuria. He is also having lower abdominal pain that is worse with sitting up. He has not had a bowel movement in over 2 days. When he has the rigors, he complains of shortness of breath, but in between he does not have any. In the ER, he was tachypneic and tachycardic at times, had a normal WBC count, and his UA was normal however he had been on Cipro x3 doses. Blood cultures were drawn, lactate was negative. Chest x-ray was negative for acute disease. CT of the abdomen/pelvis showed questionable minimal inflammatory change within the deep pelvis located at the perirectal space which also may surround the mildly thickened bladder and enlarged prostate gland-could represent low-grade proctitis, prostatitis, or cystitis. He will be admitted on observation for likely acute prostatitis for IV antibiotics after failure of outpatient treatment. Admission Exam Per Admitting Provider Constitutional: WD/WN, vitals as above + ill appearing (With shaking rigors) and + obese Eyes: + anicteric sclerae ENMT: external ear and nose normal, oropharynx normal Neck: trachea midline, no thyromegaly Respiratory: + tachypneic Auscultation: lungs clear to auscultation bilaterally; no crackles, no rhonchi and no wheezes Cardiovascular: Rate/Rhythm: regular rhythm and + tachycardic Heart Sounds: no murmur Extremities: no calf tenderness and no edema Chest (Breasts): Chest: normal inspection of chest Gastrointestinal (Abdomen): Inspection/Auscultation: abdomen normal to inspection and normal bowel sounds; abdomen not distended Percussion/Palpation: + abdomen tender (In suprapubic region without guarding or rebound tenderness) Musculoskeletal: Extremities: extremities normal to inspection; no cyanosis and no clubbing Skin: no rashes, warm and dry Neurologic: moves all extremities and awake; no focal motor deficits Psychiatric: A+Ox3, euthymic affect Lymphatic: no lymphedema Principal Diagnosis Prostatitis Discharge Exam Constitutional well developed and well nourished; no acute distress Eyes PERRL, conjunctivae normal, anicteric sclerae Neck trachea midline, no thyromegaly Respiratory normal respiratory effort, lungs clear to auscultation Cardiovascular Heart Sounds: normal S1 and normal S2; no murmur Vessels: no JVD Gastrointestinal (Abdomen) Inspection/Auscultation: abdomen normal to inspection and normal bowel sounds; abdomen not distended Percussion/Palpation: no guarding and abdomen not rigid Musculoskeletal no cyanosis or clubbing, extremities motor strength 5/5 Head/Neck/Chest: normocephalic and head atraumatic Neurologic patellar DTR's 2+ bilat, sensation intact Psychiatric A+Ox3, euthymic affect Lymphatic no cervical or axillary lymphadenopathy Discharge Data Allergies Allergy/AdvReac Type Severity Reaction Status Date / Time No Known Allergies Allergy Unknown Verified 12/10/19 11:30 Consultations 12/10/19 15:04 ED Decision to Admit Stat 12/10/19 18:07 Consult Urology Routine Ordered Studies 12/10/19 10:53 CT abd pelvis IV con only Stat CXR CXR Hospital Course (1) Prostatitis: This patient is a 54-year-old male with history of BPH, HTN, DM 2, MYRTLE, who had a prostate biopsy on Wednesday 12/06, who presents to the ER with complaint of chills since Tuesday morning. He called into his urologist office and was prescribed Cipro of which he took 3 doses, but the significant chills continued. His highest temperature at home was 99.7., also with urinary straining in order to get the urine out, but was able to urinate when he sat down. No blood in the urine or dysuria. He was also having lower abdominal pain that was worse with sitting up. Of note, he had not had a bowel movement in over 3 days. He was found to have evidence of acute prostatitis versus proctitis on imaging consistent with his clinical presentation. * Urology consulted -- patient had issues with timing of abx pre/post operatively 12/06. (did not get pre-op and was late at getting after procedure). Possible seeding of bacteria with instrumentation * Given Rocephin IV and discharged on Cipro for total of 10 more days. * BCx NGTD * UA without abnormality however he did receive Cipro prior to presentation to ER. * Cultures without growth * Supportive treatment with IVF, tylenol/ibuprofen * Discharged on flomax, cipro. 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 Judy score 3+3=6. * Per Urology conversation with attending, Urologist to call in prescription for dutasteride as well. * Follow-up outpatient with Urology (2) Abdominal pain: * As above, secondary to acute prostatitis * Bowel regimen with as needed milk of magnesia and MiraLAX ordered * Patient did have BM * Resolution of abdominal pain. (3) Type 2 diabetes mellitus: * Typically very well controlled, last hemoglobin A1c was 5.9% in 07/2019 * Held home metformin given dye load here while inpatient as well as home Trulicity -- resumed at discharge * While inpatient: Given NovoLog before meals and at bedtime on a sliding scale basis. BSG ac/hs A1c 6.2 up from 5.9 * Blood sugars have acceptable during admission (4) Hypertension: * Chronic. Stable. * BP currently elevated at 155/86 however patient did not sleep well and unable to tolerate our CPAP mask and requested to be discharged to get a better night sleep at home. * Continued home losartan (5) Severe obstructive sleep apnea: * Did not bring from home -- ordered CPAP HS. Unsure of settings -- ordered at 10cm H20 and adjust as needed per RT while inpatient (6) Obesity: * BMI 35.2 * Counseling on weight loss --> started on Trulicity outpatient, which should help (7) Benign prostatic hyperplasia with urinary obstruction: * With elevated PSA, hence prostate biopsy this past Tuesday. See above regarding biopsy results. * Continued tamsulosin (8) Hypokalemia: * Potassium mildly low at 3.4 here on admission. Given supplementation * RESOLVED -- K 3.7 (9) Hypomagnesemia: * Magnesium low here at 1.5 on admission -- given 2gm IV * Mag improved to 2.3, resolved (10) Knee osteoarthritis: * Continued home ibuprofen (11) Neuropathy: * Not new -- May be associate to DM, but will add B12 to AM labs for described glove/stocking paresthesias (12) DVT prophylaxis: * Lovenox SQ, SCDs while inpatient Discharged home with family Total Time Total Time Spent Total Time Spent (In Minutes): 60 Discharge Plan Discharge Items Patient Disposition: Home - Self-Care Reason For Visit: ACUTE PROSTATITIS,RIGORS Discharge Diagnosis: Prostatitis Condition on Discharge: Fair Goals: You have been hospitalized for an acute medical problem. During your stay at [facility], we have made an effort to correct the problem that brought you to the hospital while keeping you as comfortable as possible. Medications were used to bring your condition under control and your discharge instructions will include directions for any medications you should take after leaving the hospital. Please make sure you see your Primary Care Provider as part of your follow up plan. Activity: Resume your previous activity Non-emergency contact: Primary Care Provider and Urologist Call non-emergency contact if: you have any medication questions, your symptoms worsen, your pain is concerning for you and you have a fever Follow-up/Referrals: Leo Lou MD [Primary Care Provider] - Leo Delgadillo MD [Physician] - Diet: Carb Consistent or DM2 and Heart Healthy Addtl Attending Provider Instructions: You have been hospitalized for inflammation/infection in relation to your prostate following biopsy. It is likely that this occurred due to timing of antibiotics around your procedure. You have been treated with IV antibiotics and it is determined that you should continue with CIPROFLOXACIN for the next five days. * If you have enough medication at home for this from prior to coming in, you may utilize this for the next TEN DAYS. * If not, a prescription has been sent for you. Please complete full course and do not miss any doses. Please follow up with Dr. Delgadillo's office in the next week to review biopsy results and monitor your progress. Please follow up with your primary care provider in the next 5-7 days. You may want to see about additional medications to reduce your blood pressure if this r emains elevated once this is resolved. Please return to the emergency room with any worsening fever, pain, hematuria, chest pain, shortness of breath or for any other symptoms that are concerning for you. It has been a pleasure being a part of the medical team providing for you while you have been in the hospital. Take care! Pending Studies at Discharge: No Stand-Alone Forms: My [facility] Medications and DC Order Prescriptions: New ciprofloxacin HCl [Cipro] 500 mg tablet 500 mg PO BID 10 Days Qty: 20 RF: 0 Continued ibuprofen 800 mg tablet 800 mg PO BID RF: 0 acetaminophen 500 mg tablet 500 mg PO DAILY PRN (Reason: Pain) RF: 0 cholecalciferol (vitamin D3) 5,000 unit capsule 5,000 units PO FR RF: 0 tamsulosin 0.4 mg capsule 0.4 mg PO HS RF: 0 losartan 25 mg tablet 75 mg PO HS RF: 0 metformin 500 mg tablet extended release 24 hr 2,000 mg PO HS RF: 0 Trulicity 0.75 mg/0.5 mL pen injector 0.75 mg SQ FR RF: 0 Discontinued ciprofloxacin HCl [Cipro] 500 mg tablet 500 mg PO BID Qty: 10 RF: 0 No Action dutasteride 0.5 mg capsule 0.5 mg PO DAILY Qty: 90 RF: 3 Discharge Orders: Discharge Order (Routine); Ordered 12/12/19 Ordered By: Consuelo Johnston/Other Patient Handouts: Diabetes Type 2 Managing Admission Data Admit Date/Time: 12/11/19 15:47 Attending Provider: Elio Breaux Admit Provider: Andria Connors Primary Care Provider: Leo Lou Other Providers: Andria Cnonors ; Leo Delgadillo Other Interventions: Discharge Summary Assessment (RN) Last Done: 12/12/19 15:30 DC Date/Time DO NOT enter until pt leaves facility: 12/12/19 15:50 Supervising Physician Co-Signing Physician Notes Attending Attestation and Discharge Note: Pt seen/examined, chart reviewed, discharge care plan d/w PA Consuelo Parish. I agree w/ the lemos components of her discharge documentation. 54yo male s/p prostate biopsy last week. Now with probable prostatitis. Received IV rocephin while hospitalized. Patient improved with IV antibiotics. Urine culture did not grow any specific pathogen but [id number] presentation was c/w prostatitis. Seen by urology - 10-day course of PO abx recommended at discharge. Also to start on dutasteride daily. Discharge exam: gen - morbidly obese, NAD neck - no JVD heart - RRR, s1 s2 lungs - CTA b/l abd - soft NT ND BS+ ext - no edema Cr 0.9 at discharge. Voiding adequately at discharge. Patient will see Dr Delgadillo in 1 week post-discharge. Elio Breaux MD Coding Level of Care Code D/C Day Management >30 mins Diagnoses Prostatitis N41.9 Prostatitis type: unspecified Abdominal pain R10.9 Abdominal location: unspecified location Type 2 diabetes mellitus E11.9 Hypertension I10 Severe obstructive sleep apnea G47.33 Obesity E66.9 Benign prostatic hyperplasia with urinary obstruction N40.1; N13.8 Hypokalemia E87.6 Hypomagnesemia E83.42 Knee osteoarthritis M17.10 Neuropathy G62.9 DVT prophylaxis Z29.9
--- NOTE | 2019-12-12 12:36 | Urology Progress Note ---
Date of Service December 12, 2019 Assessment & Plan (1) Prostatitis: Post prostate biopsy sepsis/prostatitis He appears to be turning the corner subjectively Objectively he never had a significant leukocytosis but he did have chills Reiger's and tachycardia He still remains borderline tachycardic He has been more ambulatory He is voiding adequately He feels more like himself I think he is likely safe to go home this afternoonI think he should remain on antibiotics for 4-5 additional daysCipro is likely sufficient and he Juvenal has a prescription at home which he is only taken 1-2 doses of this prior to arrival I did review his pathology today he has an extremely low volume low risk pro state cancerlikely a good candidate for active surveillance long-term prognosis should be outstanding I will also start him on dutasterideI will send this to his pharmacy Subjective Subjectively has improved substantially since yesterday He was able to move his bowels this morning and he was much more steady as he was ambulatory within the room He did not experience chills or Reiger's overnight He reports he had his best night of sleep in the last 4 days He continues to have some tachycardia Cultures remain negativehe did start Cipro immediately prior to having his cultures drawn implying he may have been sensitive to this medication and subsequently masked his culture results He is voiding adequately He is anxious to go home Review of Systems Review of Systems: All systems reviewed & are unremarkable except as noted in HPI & below Physical Exam Constitutional: well developed and well nourished Respiratory: no respiratory distress Cardiovascular: Extremities: no pedal edema Gastrointestinal (Abdomen): Inspection/Auscultation: abdomen normal to inspection Results & Data Vital Signs (Past 12 Hours) Vital Signs Temp Pulse Pulse Resp BP BP Pulse Ox 12/12/19 11:51 36.9 C 99 H 18 159/91 H 96 12/12/19 07:00 36.6 C 97 H 22 135/87 95 12/12/19 04:22 36.4 C L 82 20 118/74 96 12/12/19 03:30 82 18 97 PG Care Time/CCT Total # of Minutes Spent Total Time Spent with Patient: Total time spent is greater than 50% in coordin ation of care (as documented) at patient's floor/unit and/or counseling patient: Coding Level of Care Code 87173 Subseq Hosp Care Lvl 2 Diagnoses Prostatitis N41.9 Prostatitis type: unspecified (1) Prostatitis Prostatitis type: unspecified Qualified Code(s): N41.9 - Inflammatory disease of prostate, unspecified
--- NOTE | 2019-12-24 08:17 | Coding Query ---
SEPSIS Urology Consult and Urology Progress Note document post prostate biopsy sepsis/prostatitis and the Hospitalist Progress Note on 12/11/19 documents meets SIRS criteria -- likely source being prostate/prostatitis. Please specify below, in your clinical opinion. To promote full compliance with coding requirements relating to patient care, physician participation is requested in all cases of boring mill set up operator vertical uncertainty. Please assist us with the question(s) below: In responding to this query, please exercise your independent professional judgement. The fact that a question is asked does not imply that any particular answer is desired or expected. We appreciate your clarification on this issue. Throughout the medical record, you have clearly documented a localized infection and your patient has clinical evidence of a generalized sepsis or severe sepsis. The term urosepsis is a nonspecific entity and is coded as an UTI. If the patient has sepsis, severe sepsis, from an urinary source or some other source, please clarify in your response below. The medical record reflects the following clinical findings: (With dates as appropriate) (Body temperature of >38.3 C(101 F) or <36 C(96.8F), pulse >90/minute, respirations >20/minute, WBC count >12,000 or <4,000, altered mental status, significant edema or positive fluid balance, hyperglycemia without diabetes, hypotension, metabolic acidosis (elev. lactate level, anion gap or reduced blood pH), shock, positive blood culture (enter organism) ____ ()Bacteremia (Nonspecific laboratory finding of bacteria in the blood) Specify Organism () Present on Admission () Not present on admission () Unable to clinically determine () Septicemia (Systemic disease associated with the presence of pathogenic microorganisms in the blood): Specify Organism () Present on Admission () Not present on admission () Unable to clinically determine (x) Sepsis Specify Organism Specify Associated Condition/Diagnosis (x) Present on Admission () Not present on admission () Unable to clinically determine () Severe Sepsis (Sepsis associated with acute organ dysfunction) Specify Organism Specify Associated Condition/Diagnosis () Present on Admission () Not present on admission () Unable to clinically determine () Septic Shock (Severe sepsis with acute circulatory failure, unexplained by other causes) () Present on Admission () Not present on admission () Unable to clinically determine () Other, patient has: MTDD
--- NOTE | 2019-12-24 08:21 | Coding Query ---
CODING QUERY To promote full compliance with coding requirements relating to patient care, provider participation is requested in all cases of orthopedic coder uncertainty. Please assist us with the question(s) below: Coding Question(s): Urology Consult and Urology Progress Note document, " Prostatitis: Post prostate biopsy sepsis/prostatitis". Please specify below, in your clinical opinion. ( ) this is likely a postprocedural complication of infection ( x ) this is Not a postprocedural complication - cultures proved negative - I think this is an expected possible reaction to the biopsy ( ) Other: Please Specify Physician's Response(s): Thank you Jade Washington Principal Diagnosis: "that condition established after study, to be chiefly responsible for occasioning the admission of the patient to the hospital for care." Co-Existing Principal Diagnosis: "when two or more diagnoses equally meet the criteria for principal diagnosis as determined by the circumstances of admission, diagnostic work up, and/or therapy provided, and the Alphabetic Index, Tabular List, or another coding guideline does not provide sequencing direction, any one of the diagnoses may be sequenced first." "When the physician has documented what appears to be a current diagnosis in the body of the record, but has not included the diagnosis in the final diagnostic statement, the physician should be asked whether the diagnosis should be added." (Source Coding [facility] 2 QTR90. p3-4) [place]
== END 2019-12-12 15:50 | disposition home or self-care (01) | DRG 872 ==
LOC: ED 10:28 → 2N 10:28 → SUATTDRO 16:10 → 2N 17:32

== ENCOUNTER 2020-06-30 05:23 | Observation (INO) ==
--- NOTE | 2020-06-09 12:47 | PAT Medication Instructions ---
Medication Instructions Date of Service June 09, 2020 Home Medications Medication Instructions Recorded tramadol 50 mg tablet 50 mg PO Q6H PRN #30 tab 05/22/20 acetaminophen 500 mg tablet 500 mg PO DAILY PRN ibuprofen 800 mg tablet 800 mg PO BID metformin 2,000 mg PO HS tamsulosin 0.4 mg PO HS tramadol 50 mg tablet 50 mg PO Q6H PRN dulaglutide [Trulicity] 1.25 mg SUBCUT dutasteride 0.5 mg PO PM losartan 100 mg PO HS Continue as directed dulaglutide [Trulicity] 1.25 mg SUBCUT WEEKLY ASK your surgeon for instructions ibuprofen 800 mg tablet 800 mg PO BID Take evening before surgery acetaminophen 500 mg tablet 500 mg PO DAILY PRN (if needed) metformin 2,000 mg PO HS tamsulosin 0.4 mg PO HS tramadol 50 mg tablet 50 mg PO Q6H PRN (if needed) dutasteride 0.5 mg PO PM losartan 100 mg PO HS NOTHING TO EAT OR DRINK AFTER MIDNIGHT Other Notes If you have any questions please call us at [phone] or [phone] or [phone] or [phone]
--- NOTE | 2020-06-10 16:07 | Anesthesiology Consultation ---
Date of Service June 10, 2020 Assessment & Plan (1) Encounter for pre-operative examination: COVID Status: As of 06/10 assessment, patient denies travel to endemic area, known exposure/sick contacts, or symptoms of COVID19. Patient instructed that they and their household members must follow strict social distancing guidelines, wear a mask in public and avoid travel/events/gatherings for 14 days prior to surgery. Preoperative COVID19 testing to be completed prior to surgery per surgeon's arrangements (06/24). Patient made aware to self-isolate as much as possible between COVID testing and surgery. Chart Review Chart Review: Acceptable Risk for Surgery and Patient seen in Pre Admission Testing Teaching & Discussion Instructed NPO after midnight before surgery, except medications with 15 cc of water. Medication instructions provided according to the PAT guidelines. History Surgery Operation Date: 06/30/20 07:30 Proposed Procedures p Right Total Knee Arthroplasty - Jairo Martin, Height/Weight Height: 5 ft 6 in Weight: 142.4 kg Allergies Allergy/AdvReac Type Severity Reaction Status Date / Time No Known Allergies Allergy Unknown Verified 06/04/20 15:31 Medications Home Medications Medication Instructions Recorded Confirmed Last Taken acetaminophen 500 mg tablet 500 mg PO DAILY PRN tab 02/24/19 06/04/20 12/10/19 08:00 1000 mg ibuprofen 800 mg tablet 800 mg PO BID tab 02/24/19 06/04/20 12/10/19 08:00 metformin 2,000 mg PO HS 12/10/19 06/04/20 12/09/19 tamsulosin 0.4 mg PO HS 12/10/19 06/04/20 12/09/19 tramadol 50 mg tablet 50 mg PO Q6H PRN #30 tab 05/22/20 06/04/20 Unknown dulaglutide [Trulicity] 1.25 mg SUBCUT 06/04/20 Unknown dutasteride 0.5 mg PO PM 06/04/20 06/04/20 Unknown losartan 100 mg tablet 100 mg PO DAILY #30 tab 06/10/20 Unknown Past Medical History Medical History Benign prostatic hyperplasia with urinary obstruction Depression Diabetes mellitus A1C 5.9% on pre op labs 06/10 Elevated prostate specific antigen (PSA) Erectile dysfunction Mary's thyroiditis Thyroid studies WNL 03/2020 Hypertension Insomnia Morbid obesity Partial small bowel obstruction RESOLVED Prostate CA Currently, Urology monitoring Sleep apnea CPAP Thyroid goiter Exercise / Class Metabolic Activity III < 4 Walking/Shop/Light housework (Does not do stairs, limited by knee pain and obesity, denies chest pain but does have NEGRO.) Past Family History Family History Uncle Colon cancer Unknown Diabetes Hypertension Father Diabetes Prostate cancer Mother Hypertension Past Surgical History Surgical History History of arthroscopy of left knee Done at [facility] [place] - "Good mask vent." LMA #5 inserted History of prostate biopsy History of rotator cuff surgery History of torsion of testis Past Anesthesia History No Hx of Anesthesia Complications and No Family Hx of Anesthesia Complications History of PONV No Hx of PONV and Hx of Motion Sickness Social History Smoking Status: Current some day smoker tobacco type: pipe Smoking cigarettes per day: very rare, once every 2 months Do You Dip or Chew Tobacco: Yes (advised NONE AM DOS) Hx Alcohol Use: Yes Alcohol type: beer alcohol intake frequency: holidays/special occasions only Hx Substance Use: No substance use type: does not use Review of Systems Pt denies any recent chest pain, shortness of breath, palpitations, cough, fever, URI, or uncontrolled acid reflux. Physical Exam Vital Signs BP: 154/86 P: 85bpm SPO2: 98% RA T: 97.9 F R: 16 Constitutional + morbidly obese ENMT Mouth: + dental restorations (crown on upper L incisor) and + chipped teeth (lower L molar); no loose teeth Thyromental Distance: > or= 3.5 Finger Breadths Mallampati Class: IV Neck + thick neck and + facial hair (LARGE BUSHY GONZALEZ); neck extension not limited Respiratory normal respiratory effort, lungs clear to auscultation Cardiovascular Rate/Rhythm: regular rate and regular rhythm Heart Sounds: no murmur Testing Laboratory Results 06/10/20 16:30 06/10/20 16:30 PT 10.8 Seconds (9.0-12.0) 06/10/20 16:30 INR 1.0 (0.9-1.1) 06/10/20 16:30 APTT 31.3 Seconds (21.0-31.0) H 06/10/20 16:30 Hemoglobin A1c 5.9 % (4.5-5.6) H 06/10/20 16:30 Blood Type O Positive 06/10/20 16:30 Antibody Screen NEGATIVE 06/10/20 16:30 Electrocardiogram Date: 06/10/20 Findings: + NSR @ (80bpm) Chest X-Ray Date: 12/10/19 Findings: + NAD Stress Test Date: 06/29/18 Normal pharmacologic stress echocardiogram. No echocardiographic or EKG evidence of myocardial ischemia having achieved heart rate adequate for diagnostic purposes. The test was terminated due to the patient having reached target heart rate. The heart rate response and blood pressure response to dobutamine infusion were appropriate. Resting study: Mild concentric LVH is present. EF 55-60% The right ventricle is mildly dilated. The right ventricular systolic function is normal. Doppler findings do not suggest pulmonary hypertension. LV diastolic function is normal.
[2020-06-10 16:50] LABS: Basophils # (auto) 0.02 K/uL (0-0.2); Basophils % (auto) 0.3 %; Eosinophils # (auto) 0.08 K/uL (0-0.5); Eosinophils % (auto) 1.1 %; Hematocrit (blood only) 41.7 % (42-52); Hemoglobin 14.1 g/dL (14.0-18.0); Immature Granulocytes # (auto) 0.01 K/uL (0.00-0.02); Immature Granulocytes % (auto) 0.1 %; Lymphocytes % (auto) 17.7 %; Mean Corpuscular Hemoglobin 28.4 pg (25-34); Mean Corpuscular Hgb Conc 33.8 g/dL (32-36); Mean Corpuscular Volume 83.9 fL (80-100); Mean Platelet Volume 9.9 fL (7.4-10.4); Monocytes # (auto) 0.41 K/uL (0.11-0.59); Monocytes % (auto) 5.6 %; Neutrophils # (auto) 5.51 K/uL (1.4-6.5); Neutrophils % (auto) 75.2 %; Platelet Count 195 K/uL (130-400); RDW Standard Deviation 42.9 fL (36.4-46.3); Red Blood Count 4.97 M/uL (4.7-6.1); White Blood Count 7.33 K/uL (4.8-10.8)
[2020-06-10 17:01] LABS: Partial Thromboplastin Ratio 1.1; Partial Thromboplastin Time 31.3 Seconds (21.0-31.0); Prothrombin Time 10.8 Seconds (9.0-12.0)
[2020-06-10 17:13] LABS: Albumin Level 3.9 gm/dl (3.4-5.0); BUN Creatinine Ratio 18.1 (10-20); Calcium 9.2 mg/dl (8.5-10.1); Creatinine Clr Calc Pharmacy 118.4 ml/min; Est GFR (Non-African American) 89.8; Potassium 4.1 mmol/L (3.5-5.1)
[2020-06-10 17:16] LABS: Bilirubin,Total 0.3 mg/dl (0.2-1); Globulin 3.9 gm/dl (2.5-4.0); Total Protein 7.8 gm/dl (6.4-8.2)
[2020-06-11 05:52] LABS: Estimated Average Glucose 123 mg/dl; Hemoglobin A1C 5.9 % (4.5-5.6)
--- NOTE | 2020-06-11 14:13 | Electrocardiogram Report ---
Test Reason : Blood Pressure : / mmHG Vent. Rate : 080 BPM Atrial Rate : 080 BPM P-R Int : 170 ms QRS Dur : 106 ms QT Int : 360 ms P-R-T Axes : 062 044 050 degrees QTc Int : 415 ms Normal sinus rhythm Normal ECG When compared with ECG of 10-DEC-2019 16:39, Vent. rate has decreased BY 53 BPM Confirmed by Estevan Anguiano ([id number]) on 06/11/2020 2:12:48 PM Referred By: Jairo Martin Confirmed By:Leoncio Anguiano
[2020-06-30] MEDS ORDERED: GABAPENTIN 600 MG DOSE PO SCH (06:00)
[2020-06-30] MEDS ORDERED: TRANEXAMIC ACID 1,000 MG **IV Pre-op IV SCH (06:00)
[2020-06-30] MEDS ORDERED: ACETAMINOPHEN 500 MG TAB PO SCH (06:00)
[2020-06-30] MEDS ORDERED: FAMOTIDINE 20 MG TAB PO SCH (06:00)
[2020-06-30] MEDS ORDERED: TRANEXAMIC ACID 1,000 MG **IV Intra-op IV SCH (06:00)
[2020-06-30] MEDS ORDERED: LR 60ML/HR IV SCH (06:00)
[2020-06-30] MEDS ORDERED: LR 500ML BOLUS, THEN 15ML/HR IV SCH (06:00)
[2020-06-30] MEDS ORDERED: ROPIVACAINE 0.5% HCL/PF 150 MG, BUPIVACAINE 0.75% MPF 20 ML, EPINEPHrine 30MG/30ML (OR ... INSTIL SCH (06:00)
[2020-06-30] MEDS ORDERED: dexAMETHasone 4 MG TAB PO SCH (06:00)
--- NOTE | 2020-06-30 06:31 | History & Physical Report ---
Date of Service June 30, 2020 Assessment & Plan (1) Knee osteoarthritis: We will proceed with a right total knee arthroplasty. Postoperatively he will be started on aspirin for DVT prophylaxis and kept overnight in the hospital for postoperative medical management. Present on Admission?: Yes History of Present Illness Chief Complaint: Primary osteoarthritis of the right knee Primary Care Provider: Estevan Lou MD Roscoe is a pleasant 54-year-old male who is been dealing with chronic increasing right knee pain. X-rays and clinical examination have been diagnostic for advanced osteoarthritis of the right knee. After failing conservative treatment, he has elected to proceed with a right total knee arthroplasty. Allergies Allergy/AdvReac Type Severity Reaction Status Date / Time No Known Allergies Allergy Unknown Verified 06/30/20 05:53 Home Medications Medication Instructions Recorded Confirmed Type acetaminophen 500 mg tablet 500 mg PO DAILY PRN tab 02/24/19 06/30/20 History ibuprofen 800 mg tablet 800 mg PO BID tab 02/24/19 06/30/20 History metformin 2,000 mg PO HS 12/10/19 06/30/20 History tamsulosin 0.4 mg PO HS 12/10/19 06/30/20 History tramadol 50 mg tablet 50 mg PO Q6H PRN #30 tab 05/22/20 06/30/20 Rx dulaglutide [Trulicity] 1.25 mg SUBCUT 06/04/20 History dutasteride 0.5 mg PO PM 06/04/20 06/30/20 History losartan 100 mg tablet 100 mg PO DAILY #30 tab 06/10/20 06/30/20 Rx Past Med/Surg History Medical History Benign prostatic hyperplasia with urinary obstruction Depression Diabetes mellitus A1C 5.9% on pre op labs 06/10 Elevated prostate specific antigen (PSA) Erectile dysfunction Mary's thyroiditis Thyroid studies WNL 03/2020 Hypertension Insomnia Morbid obesity Partial small bowel obstruction RESOLVED Prostate CA Currently, Urology monitoring Sleep apnea CPAP Thyroid goiter Surgical History History of arthroscopy of left knee Done at [facility] [place] - "Good mask vent." LMA #5 inserted History of prostate biopsy History of rotator cuff surgery History of torsion of testis Family History Uncle Colon cancer Unknown Diabetes Hypertension Father Diabetes Prostate cancer Mother Hypertension Social History Smoking Status: Current some day smoker Cigarettes Per Day: very rare, once every 2 months; Second Hand Exposure: No; Do You Dip or Chew Tobacco: Yes (advised NONE AM DOS); Hx Alcohol Use: Yes Alcohol type: beer Hx Substance Use: No Preferred Language: Turkmen Communication Ability: Effective Veneer Drier Required: No Beliefs That Will Affect Care: None marital status: Current Living Situation: Family current occupational status: employed 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 Feels Safe at Home: Yes Safety Concerns: Feels Safe At This Time Assistive Devices: CPAP and Glasses Review of Systems Review of Systems: All systems reviewed & are unremarkable except as noted in HPI & below Physical Exam Constitutional: WD/WN, vitals as above Eyes: PERRL, conjunctivae normal, anicteric sclerae ENMT: external ear and nose normal, oropharynx normal Neck: trachea midline, no thyromegaly Respiratory: normal respiratory effort Cardiovascular: RRR, no murmur, no edema Gastrointestinal (Abdomen): normal bowel sounds, soft, nontender, no hepatosplenomegaly Musculoskeletal: On physical examination of the right knee there is a trace effusion. There is near full range of motion and no evidence of instability. There is significant tenderness palpation along the medial and lateral joint lines and over the distal femoral condyles. Psychiatric: A+Ox3, euthymic affect Results & Data Results & Data ([facility]) Diagnostic Findings Radiographs of the right knee demonstrate advanced osteoarthritis with joint space narrowing osteophyte formation and [id number] articulation. PG Care Time/CCT Total # of Minutes Spent Total Time Spent with Patient: Total time spent is greater than 50% in coordination of care (as documented) at patient's floor/unit and/or counseling patient: Coding Level of Care Code None Diagnoses Knee osteoarthritis M17.10
[2020-06-30] MEDS ORDERED: BUPIVACAINE 0.5 % 5 MG/1 ML PF 10ML VIAL ONE (06:34)
[2020-06-30] MEDS ORDERED: ROPIVACAINE 0.5% 5 MG/ML 30 ML VIAL ONE (06:34)
[2020-06-30] MEDS ORDERED: MIDAZOLAM HCL 1 MG/ML 2ML VIAL ONE ×3 (06:36→07:25)
[2020-06-30] MEDS ORDERED: fentaNYL citrate 100 MCG/2 ML VIAL ONE (06:36)
[2020-06-30] MEDS ORDERED: ATROPINE SULFATE 0.1 MG/ML 10ML SYR IV PRN (07:09)
[2020-06-30] MEDS ORDERED: KETOROLAC 30 MG/ML VIAL IV PRN (07:09)
[2020-06-30] MEDS ORDERED: HYDROmorphone INJ 1 MG/ML SYRINGE IV PRN (07:09)
[2020-06-30] MEDS ORDERED: ONDANSETRON INJ 2 MG/ML 2 ML VIAL IV PRN ×2 (07:09→10:34)
[2020-06-30] MEDS ORDERED: ePHEDrine sulfate 50 MG/ML AMP IV PRN (07:09)
[2020-06-30] MEDS ORDERED: ONDANSETRON INJ 2 MG/ML 2 ML VIAL ONE (07:24)
[2020-06-30] MEDS ORDERED: PROPOFOL IV EMULSION 10 MG/ML 20 ML VIAL IV ONE (07:24)
[2020-06-30] MEDS ORDERED: LIDOCAINE HCL 2% 2 ML VIAL/AMP(20MG/ML) INFIL ONE (07:24)
--- NOTE | 2020-06-30 08:33 | Operative Report ---
PG Post Operative Report Pre & Post Diagnosis Operation Date: 06/30/20 08:40 Pre-Op Diagnosis: Right Knee Degenerative Joint Disease Post-Op Diagnosis: Right Knee Degenerative Joint Disease I identified the patient and participated in the time-out.: Yes Procedure Operation Date: 06/30/20 08:40 Actual Procedures p Right Total Knee Arthroplasty(Right) - Jairo Martin DO Surgeon Jairo Martin DO Business Continuity Analyst Jairo Herrera PAC Estimated Blood Loss 20 Findings Consistent with Post-Op Diagnosis Specimens Right femoral and tibial bone Complications none Disposition Disposition: Recovery Room Indications Roscoe is a pleasant 54-year-old male who is been dealing with chronic increasing right knee pain. X-rays and clinical examination have been diagnostic for advanced osteoarthritis of the right knee. After failing conservative treatment, he elected to proceed with a right total knee arthroplasty. Description of Procedure Implants used: I used a Yaya Persona total knee arthroplasty system with a size 8 standard femur, F tibia with a 30 mm stem, 32 patella, and a size 10 medial congruent polyethylene bearing. All components were cemented in place with Palacos G cement. Roscoe arrived [facility] for the above procedure. He was seen in the preoperative holding area and the operative extremity was identified and signed. He was given a preoperative antibiotic, TXA, a spinal anesthetic and an adductor nerve block. He was taken back to the operating room and laid on the table in supine position. He was given basic sedation. The operative knee was then prepped and draped in sterile fashion. A timeout was done, and the patient and the operative extremity was properly identified. A midline incision was made directly over the patella. Dissection was taken down to the extensor mechanism. A subvastus arthrotomy was used. The medial retinaculum was released and the fat pad was mostly excised. The knee was flexed and the ACL, PCL, and meniscus were removed. A drill was sent down the center of the femoral canal followed by an intramedullary nadya. Off that nadya a distal femoral cutting block was placed. 9 mm was resected off the distal femur at 5 of valgus. A posterior referencing AP sizing guide was then placed on the distal femur. The femur measured to be a size 8. 2 drill holes were placed in 3 of external rotation. A 4-in-1 cutting block was then impacted into place. Anterior, posterior, and chamfer cuts were then made. The proximal tibia was then exposed. An external tibial alignment guide was placed. A tibial cut guide was then anchored in place and the proximal tibia was then resected. The posterior aspect of the knee was then opened up and any additional meniscus fragments and osteophytes were removed. The tibia measured to be a size F. The tibial plate was then placed in the appropriate rotation and the tibia was drilled and punched. Trial components were then placed. I used a size 10 medial congruent polyethylene insert. The knee was brought through a full range of motion and felt to be stable. The peg holes for the femoral component were then drilled. The patella was then everted and 9 mm was resected off the posterior aspect of the patella. The patella measured to be a size 32. 3 peg holes were then drilled. A trial patella was placed. The knee was once again brought through a full range of motion and felt to be stable. Trial components were then removed. The surrounding soft tissues were injected with 100 cc of an orthopedic pain control cocktail. All components were then cemented into place with Palacos G cement. The final polyethylene insert was then snapped into place. Once cement was dry the tourniquet was deflated. Hemostasis was obtained. A dilute betadyne lavage was then done for 3 minutes. The joint was then irrigated with normal saline solution. The subvastus arthrotomy was then closed with #1 Vicryl suture. The skin was closed with 2-0 Vicryl, 3-0V lock suture, and hanh. A Silverlon and a soft compressive dressing were placed. He was then transferred to a hospital bed and taken to the postanesthesia care unit in stable condition. He tolerated the procedure well. Jairo Herrera PA-C, was present for the entire procedure. He was critical for patient positioning, prepping, draping, retraction exposure, wound closure and application of sterile dressing. I attest to the content of the Intraoperative Record and any orders documented therein. Any exceptions are noted below.
--- NOTE | 2020-06-30 09:48 | XRay Report ---
TWO VIEWS RIGHT KNEE CLINICAL HISTORY: Postoperative examination. FINDINGS: AP and crosstable lateral portable views of the right knee are obtained. A right knee arthr oplasty is in near anatomic alignment. There has been undersurface remodeling of the patella. No acut e fracture is seen. There are expected postoperative changes around the knee including skin clips, so ft tissue edema, and subcutaneous gas. IMPRESSION: Expected postoperative changes status post right knee arthroplasty. No acute fracture is seen. ACT 112: Negative or not required by law. Electronically signed by: Kevin Jacinto M.D. 06/30/2020 9:46 AM
[2020-06-30] MEDS ORDERED: MAGNESIUM HYDROXIDE SUSP 30 ML UDC PO PRN (10:34)
[2020-06-30] MEDS ORDERED: METOCLOPRAMIDE HCL INJ 5 MG/ML 2 ML VIAL IV PRN (10:34)
[2020-06-30] MEDS ORDERED: NALOXONE HCL 0.4 MG/1 ML VIAL/CARP IV PRN (10:34)
[2020-06-30] MEDS ORDERED: HYDROmorphone INJ 0.5 MG/0.5 ML SYR IV PRN (10:34)
[2020-06-30] MEDS ORDERED: bisacodyL 10 MG SUPP PR PRN (10:34)
[2020-06-30] MEDS ORDERED: PHARMACY GLYCEMIC MGMT CONSULT SCH (10:34)
--- NOTE | 2020-06-30 10:54 | Anesthesiology Progress Note ---
Date of Service June 30, 2020 Anesthesia Post Procedure Vital Signs Vital Signs: Temp Pulse Pulse Resp BP BP Pulse Ox 06/30/20 10:00 83 20 132/76 95 06/30/20 09:45 82 17 123/73 95 06/30/20 09:40 36.6 C 82 16 134/65 95 06/30/20 09:30 78 17 137/67 95 06/30/20 09:20 77 17 145/76 H 95 06/30/20 09:10 78 18 117/71 94 06/30/20 09:00 84 20 120/71 95 06/30/20 08:50 36.3 C L 86 16 124/71 98 06/30/20 06:45 36.7 C 83 18 143/91 H 98 06/30/20 06:16 36.6 C 88 18 158/105 H 97 Pain Intensity Right Knee: Pain Intensity: 0 Transfer of Care Handoff Completed per policy Notes Mental Status: alert / awake / arousable Patient Amnestic to Procedure: Yes Nausea / Vomiting: adequately controlled Pain: adequately controlled Airway Patency, RR, SpO2: stable & adequate BP & HR: stable & adequate Hydration State: stable & adequate Anesthetic Complications: no major complications apparent
[2020-06-30] MEDS ORDERED: LANTUS PER UNIT CHARGE SQ ONE ×2 (11:45→21:00)
--- NOTE | 2020-06-30 11:46 | Pharmacy Report ---
Pharmacy Glycemic Short Note 2 - Date of Service June 30, 2020 - Glycemic Short BSG Results (Last 24 hours): 06/30/20 06/30/20 06/30/20 05:53 08:54 10:38 POC Glucose 127 H 167 H 147 H OUTPATIENT ANTIDIABETIC REGIMEN: * Dulaglutide 1.5mg SQ weekly (last dose 06/29) * Metformin ER 2000mg Q HS * A1c = 5.9% 06/10/20 ASSESSMENT: * Well controlled type 2 diabetic admitted for R TKA * He received PO dexamethasone 8 mg pre-op and also received dexamethasone in eunice-articular injection * BSGs have been well controlled thus far with no insulin administration * Will begin basal/bolus SQ regimen based upon adjusted body weight, basal dose based upon "mild stress" and bolus based upon "moderate stress" level. He still has dulaglutide on board from yesterday's administration making prandial insulin needs less. Will follow post-prandial pattern and adjust as appropriate. PLAN FOR INPATIENT GLYCEMIC CONTROL: * Hold outpatient oral diabetes medications (metformin, dulaglutide) * Basal insulin * Lantus 15 units SQ x 1 now. Then HS per the following scale: 0 units if BSG less than 140, 10 units if BSG 140-200, 15 units if BSG above 200 * Bolus insulin * NovoLog per scale ACHS or Q6hrs while NPO * Goal Range: Low 110 mg/dL - High 140 mg/dL * Correction Factor: 20 mg/dL/unit * Nutritional / Prandial insulin per carb ratio of 1 unit per 7 grams CHO consumed PLAN FOR DISCHARGE: * Recent A1c 5.9% indicates good glycemic control, thus may resume outpt regimen of dulaglutide + metformin on discharge if no contraindications present.
[2020-06-30] MEDS: MULTIVITAMIN TAB PO SCH (12:36)
[2020-06-30] MEDS: ASPIRIN 81 MG ECTAB PO SCH ×2 (12:36→21:33)
[2020-06-30] MEDS: DOCUSATE SODIUM 100 MG CAP PO SCH ×2 (12:36→21:33)
[2020-06-30] MEDS: LOSARTAN POTASSIUM 50 MG TAB PO SCH (12:36)
[2020-06-30] MEDS: KETOROLAC 30 MG/ML VIAL IV SCH ×3 (12:37→23:10)
[2020-06-30] MEDS: SODIUM CHLORIDE 0.9% 1000ML 1,000 ML IV SCH ×2 (12:37→21:31)
[2020-06-30] MEDS: INSULIN ASPART 100 UNITS/ML 3 ML PEN SC SCH ×3 (12:43→21:34)
[2020-06-30] MEDS: ACETAMINOPHEN 500 MG TAB PO SCH ×2 (14:21→21:34)
[2020-06-30] MEDS: ceFAZolin 2000MG 2,000 MG/15 ML SYR IV SCH ×2 (15:54→23:09)
[2020-06-30] MEDS: oxyCODONE HCL IR 5 MG TAB (IMMEDIATE RELEASE) PO PRN (18:07)
[2020-06-30] MEDS ORDERED: TAMSULOSIN HCL 0.4 MG CAP PO SCH (21:00)
[2020-06-30] MEDS ORDERED: SENNA 8.6 MG TAB PO SCH (21:00)
[2020-07-01] MEDS ORDERED: Nursing to Pharmacy Communication SCH (00:15)
[2020-07-01] MEDS: KETOROLAC 30 MG/ML VIAL IV SCH ×2 (05:31→11:21)
[2020-07-01] MEDS: ACETAMINOPHEN 500 MG TAB PO SCH (05:31)
[2020-07-01 08:13] LABS: Hematocrit (blood only) 36.6 % (42-52); Hemoglobin 12.2 g/dL (14.0-18.0); Mean Corpuscular Hemoglobin 27.8 pg (25-34); Mean Corpuscular Hgb Conc 33.3 g/dL (32-36); Mean Corpuscular Volume 83.4 fL (80-100); Mean Platelet Volume 9.7 fL (7.4-10.4); Platelet Count 187 K/uL (130-400); RDW Coefficient of Variation 14.1 % (11.5-14.5); RDW Standard Deviation 42.3 fL (36.4-46.3); Red Blood Count 4.39 M/uL (4.7-6.1); White Blood Count 9.21 K/uL (4.8-10.8)
[2020-07-01 08:46] LABS: BUN Creatinine Ratio 15.9 (10-20); Calcium 8.9 mg/dl (8.5-10.1); Creatinine Clr Calc Pharmacy 129.7 ml/min; Est GFR (African American) 112.1; Est GFR (Non-African American) 96.7; Potassium 3.8 mmol/L (3.5-5.1)
[2020-07-01] MEDS ORDERED: LANTUS PER UNIT CHARGE SQ ONE (09:00)
[2020-07-01] MEDS: LOSARTAN POTASSIUM 50 MG TAB PO SCH ×2 (09:05→09:06)
[2020-07-01] MEDS: MULTIVITAMIN TAB PO SCH (09:06)
[2020-07-01] MEDS: DOCUSATE SODIUM 100 MG CAP PO SCH (09:07)
[2020-07-01] MEDS: ASPIRIN 81 MG ECTAB PO SCH (09:07)
[2020-07-01] MEDS: INSULIN ASPART 100 UNITS/ML 3 ML PEN SC SCH (09:08)
[2020-07-01] MEDS: oxyCODONE HCL IR 5 MG TAB (IMMEDIATE RELEASE) PO PRN (09:13)
--- NOTE | 2020-07-01 14:36 | Orthopedic Progress Note ---
Date of Service July 01, 2020 Assessment & Plan (1) Status post right knee replacement: Overall he is doing very well. Is not having much pain in the right knee. He will be seen by physical therapy today for ambulation and range of motion exercises. He is on aspirin for DVT prophylaxis. He can be discharged home later today. He will follow-up with orthopedics in 2 weeks. Present on Admission?: Yes Admission and Anticipated Discharge Date Admission Date: June 30, 2020 Mariya Malhotra was seen and examined at bedside this morning. Overall he is doing very well. Is not having much pain in the right knee. He was able to ambulate some last night. He has no complaints. Physical Exam Physical Exam: On physical examination of the right knee, the dressing is clean and dry. He has active dorsiflexion plantarflexion of his right ankle. Sensation is intact throughout. Results & Data ([facility]) Vital Signs (Past 12 Hours) Vital Signs Temp Pulse Resp BP Pulse Ox 07/01/20 06:52 36.6 C 77 18 102/61 96 07/01/20 03:15 36.6 C 76 16 105/62 96 Diagnostic Findings Postoperative x-rays of the right knee show the prosthesis to be in anatomic alignment without any evidence of fracture, dislocation, or loosening. PG Care Time/CCT Total # of Minutes Spent Total Time Spent with Patient: Total time spent is greater than 50% in coordination of care (as documented) at patient's floor/unit and/or counseling patient: Coding Level of Care Code None Diagnoses Status post right knee replacement Z96.651
--- NOTE | 2020-07-01 14:38 | Discharge Summary ---
Date of Service July 01, 2020 Admission HPI Per Admitting Provider Roscoe is a pleasant 54-year-old male who is been dealing with chronic increasing right knee pain. X-rays and clinical examination have been diagnostic for advanced osteoarthritis of the right knee. After failing conservative treatment, he has elected to proceed with a right total knee arthroplasty. Principal Diagnosis Right knee replacement Discharge Data Allergies Allergy/AdvReac Type Severity Reaction Status Date / Time No Known Allergies Allergy Unknown Verified 06/30/20 05:53 Consultations 06/30/20 10:34 Consult Case Management - Discharge Planning Routine Procedures Performed Operation Date: 06/30/20 08:40 Actual Procedures p Right Total Knee Arthroplasty(Right) - Jairo Martin DO Ordered Studies 06/30/20 05:00 US - OR guided needle placemen Routine Hospital Course (1) Status post right knee replacement: On June 30, 2020 Roscoe arrived at [facility] and underwent a right total knee arthroplasty complication. He had a spinal anesthetic. Postoperatively he was started on aspirin for DVT prophylaxis and transferred to the general orthopedic floors. His hospital course was uneventful. On postop day #1 his H&H was stable and his pain was well controlled. He was able to participate well with physical therapy doing ambulation and range of motion exercises. He was then discharged to home. He will follow-up with orthopedics in 2 weeks. Total Time Total Time Spent Total Time Spent (In Minutes): 20 Discharge Plan Discharge Items Patient Disposition: Home - Home Health Services Reason For Visit: Right Knee Degenerative Joint Disease; M17.11 Discharge Diagnosis: Right Total Knee Activity: As commented below Non-emergency contact: Surgeon Call non-emergency contact if: your wound has increased redness and your wound has increased drainage Follow-up/Referrals: Leo Lou MD [Primary Care Provider] - Diet: Carb Consistent or DM2 Addtl Attending Provider Instructions: Activity and Therapy Recommendations: * If you are using [facility] then therapy will be provided at your home until they feel you have accomplished all of your goals. * If you are using [facility] then Physical Therapy will be provided until they feel you are ready to start Outpatient Physical Therapy. * If you are not using home therapy then Outpatient Physical Therapy should start about 3-5 days from your day of surgery. Therapy will last about 6-10 weeks * It is important not to put a pillow under your knee when you are relaxing or sleeping. It is just as important to make sure you are getting your knee perfectly straight as it is to regain your knee bend. * You were shown a series of exercises in the hospital. Do these exercises three times each day including the exercises you were shown in physical therapy. * Get up and walk several times each day. For the first four weeks, try not to stand or walk for more than one hour at a time. If you do stand or walk for more than one hour, you will not hurt anything, but your leg will likely swell. * As you feel comfortable, you may change from the walker or crutches to a cane and then to independent walking. Medications: * Narcotic You will likely be sent home from the hospital with a prescription for the narcotic pain medication that worked best throughout your stay. * Aspirin Most patients will be required to take Aspirin 81mg twice a day for 6 weeks after surgery. This is obtained [id number] and a prescription is not necessary. * Other medications may be prescribed for specific circumstances. If you have any questions, please call the office at . * Resume previous home medications unless otherwise instructed TEDs/Elastic Stockings: The white elastic stockings help limit swelling and prevent blood clots from forming in your legs.~ The more you wear them, the more they work. Wear them for six weeks. Dressing Care: Leave the Silverlon dressing in place for 7 days. After 7 days you may remove the dressing. If the incision is not draining then you may leave the hanh open to air. If there is a little bit of drainage or if the hanh are getting stuck on your clothing then cover the incision with a dry dressing. The hanh will be removed at your 2 week follow-up appointment. Showering: You may shower with the Silverlon dressing in place. Do not let the shower spray hit the dressing directly. Pat the Silverlon dressing dry. If the dressing becomes wet underneath, then simply remove the dressing. Keep the incision dry until you are 7 days out from the day of surgery. After 7 days you may remove the Silverlon dressing and shower with the hanh exposed. Let soapy water run over the hanh and pat them dry. Do not scrub or soak the incision. Things To Watch For: * Drainage from the incision site that occurs more than one week after your surgery. * Increased redness at the incision site. * Fever above 102 degrees Fahrenheit. * Unusual chest pain or shortness of breath. * Call [facility] at with any of the above problems Follow-Up Visit: Follow-up with Dr. Martin's PA (Jairo Herrera) 2-3 weeks after your day of surgery. He will remove your hanh and answer any questions. If you have any additional questions or concerns, Dr Martin is usually in the office at the same time and will be available An appointment was probably scheduled when you signed-up for surgery in the office. If you have any questions call Office Instructions: More detailed instructions as well as Frequently Asked Questions were provided in a folder by our office when you signed-up for surgery. Please review these instructions when you get home. If you have any further questions or concerns, please feel free to call the office at [phone] Pending Studies at Discharge: No Stand-Alone Forms: [facility], Opioid Pain Management, Smoking Cessation Medications and DC Order Prescriptions: New aspirin 81 mg Tablet,Delayed Release (Dr/Ec) 81 mg PO BID 42 Days Qty: 0 RF: 0 oxycodone 5 mg Tablet 5 mg PO Q4H PRN (Reason: pain) Qty: 60 RF: 0 Continued tramadol 50 mg tablet 50 mg PO Q6H PRN (Reason: pain) Qty: 30 RF: 0 losartan 100 mg tablet 100 mg PO DAILY Qty: 30 RF: 5 ibuprofen 800 mg tablet 800 mg PO BID RF: 0 acetaminophen 500 mg tablet 500 mg PO DAILY PRN (Reason: Pain) RF: 0 tamsulosin 0.4 mg capsule 0.4 mg PO HS RF: 0 metformin 500 mg tablet extended release 24 hr 2,000 mg PO HS RF: 0 dutasteride 0.5 mg capsule 0.5 mg PO PM RF: 0 Trulicity 1.5 mg/0.5 mL pen injector 1.25 mg subcut RF: 0 Discharge Orders: Discharge Order (Routine); Ordered 07/01/20 Ordered By: Jairo Johnston/Other Patient Handouts: Total Knee Replacement Admission Data Admit Date/Time: 06/30/20 08:52 Attending Provider: Jairo Martin Admit Provider: Jairo Martin Primary Care Provider: Leo Lou Other Interventions: Discharge Summary Assessment (RN) Last Done: 07/01/20 07:45 Coding Level of Care Code D/C Day Management <30 mins Diagnoses Status post right knee replacement Z96.651
== END 2020-07-01 12:30 | disposition home health service (06) ==
LOC: 3W 05:23 → ASU 05:23

== ENCOUNTER 2020-09-15 09:37 | Observation (INO) ==
--- NOTE | 2020-09-09 14:45 | Anesthesiology Consultation ---
Date of Service September 09, 2020 Assessment & Plan (1) Encounter for pre-operative examination: Chart Review Chart Review: Acceptable Risk for Surgery (pending preop Covid testing ) and Patient NOT seen in Pre Admission Testing - Check BSG AM DOS. Will leave to anesthesiologist discretion if coags needed DOS (no acute issues with coags on 06/10/20) Per nursing assessment 08/29/2020 patient resides and works in [facility]. 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 Last day of work was 06/23/20. Wears mask, uses good hand hygiene and socially distances. No known Covid infection in the past 90 days. No known Covid positive contacts or Covid related symptoms. Covid test 09/09/20= results pending Right TKA 06/30/2020 = done under [facility] at [facility]. No anesthesia issues noted per anesthesia record. History Surgery Operation Date: 09/15/20 09:20 Proposed Procedures p Left Total Knee Arthroplasty - Jairo Martin, Height/Weight Height: 5 ft 8 in Weight: 136.985 kg Allergies Allergy/AdvReac Type Severity Reaction Status Date / Time No Known Allergies Allergy Unknown Verified 08/29/20 12:00 Medications Home Medications Medication Instructions Recorded Confirmed Last Taken acetaminophen 500 mg tablet 500 mg PO DAILY PRN tab 02/24/19 08/29/20 06/29/20 18:00 ibuprofen 800 mg tablet 800 mg PO BID tab 02/24/19 08/29/20 06/21/20 tamsulosin 0.4 mg PO HS 12/10/19 08/29/20 06/29/20 20:00 Trulicity 1.5 mg SUBCUT WK 06/04/20 08/29/20 06/29/20 20:00 dutasteride 0.5 mg PO PM 06/04/20 08/29/20 06/28/20 20:00 blood-glucose meter #1 ea 07/21/20 07/21/20 Unknown oxycodone-acetaminophen 5 mg-325 1 tab PO Q6H PRN #30 tab 07/25/20 08/29/20 Unknown mg tablet duloxetine 20 mg capsule,delayed 20 mg PO QAM cap 08/13/20 08/29/20 Unknown release metformin 500 mg tablet,extended 2,000 mg PO HS #120 tab 08/25/20 08/29/20 Unknown release 24 hr hydrochlorothiazide 25 mg PO QAM 08/29/20 08/29/20 Unknown losartan 100 mg PO QPM 08/29/20 08/29/20 Unknown atorvastatin 20 mg tablet 20 mg PO QPM #90 tab 09/09/20 Unknown Past Medical History Medical History (Updated 09/09/20 @ 15:59 by Rebeca Balderas PA-C) Benign prostatic hyperplasia with urinary obstruction Chronic back pain LOWER BACK Depression Diabetes mellitus A1C 5.7% on 09/09/20 labs Dyslipidemia Erectile dysfunction Mary's thyroiditis Thyroid studies WNL 03/2020 Hypertension Insomnia Morbid obesity Osteoarthritis Prostate CA Currently, Urology monitoring Sleep apnea CPAP Thyroid goiter Stable - possible repeat thyroid u/s in 2023- PCP monitoring Past Family History Family History Uncle Colon cancer Unknown Diabetes Hypertension Father Diabetes Prostate cancer Mother Hypertension Denies family history of Ovarian cancer Coronary heart disease Breast cancer Past Surgical History Surgical History History of arthroscopy of left knee Done at [facility] [place] - "Good mask vent." LMA #5 inserted History of esophagogastroduodenoscopy (EGD) History of prostate biopsy History of rotator cuff surgery History of torsion of testis Status post right knee replacement (~06/2020) Social History Smoking Status: Light tobacco smoker tobacco type: pipe Smoking cigarettes per day: PIPE ON OCC Do You Dip or Chew Tobacco: Yes (SNUFF 1 CAN PER 2-3 DAYS) Hx Alcohol Use: Yes Alcohol type: beer alcohol intake frequency: holidays/special occasions only Hx Substance Use: Yes substance use type: prescription drug Testing Laboratory Results Laboratory Tests 03/27/20 09/09/20 09/09/20 11:26 10:55 10:55 WBC 7.49 Hgb 13.3 L Hct 40.2 L Plt Count 202 Sodium 140 Potassium 4.0 Chloride 109 H Carbon Dioxide 22 BUN 11 Creatinine 0.86 Glucose 107 H Hemoglobin A1c TSH 0.731 09/09/20 10:55 WBC Hgb Hct Plt Count Sodium Potassium Chloride Carbon Dioxide BUN Creatinine Glucose Hemoglobin A1c 5.7 H TSH Electrocardiogram Date: 06/10/20 Findings: + NSR @ (80bpm) Normal EKG. Chest X-Ray Date: 12/10/19 Findings: + NAD Stress Test Date: 06/29/18 Valvular Disease: no significant valvular disease Normal pharmacologic stress echocardiogram. No echocardiographic or EKG evidence of myocardial ischemia having achieved heart rate adequate for diagnostic purposes. The test was terminated due to the patient having reached target heart rate. The heart rate response and blood pressure response to dobutamine infusion were appropriate. Resting study: Mild concentric LVH is present. EF 55-60% The right ventricle is mildly dilated. The right ventricular systolic function is normal. Doppler findings do not suggest pulmonary hypertension. LV diastolic function is normal.
--- NOTE | 2020-09-11 16:56 | History & Physical Report ---
Date of Service September 11, 2020 Assessment & Plan (1) Osteoarthritis of left knee: We will proceed with a left total knee arthroplasty. Postoperatively he will be started on aspirin for DVT prophylaxis and kept overnight in the hospital for postoperative medical management. He plans [facility] upon discharge. History of Present Illness Chief Complaint: Osteoarthritis of the left knee. Primary Care Provider: Estevan Lou MD Roscoe is a pleasant 55-year-old male who is been dealing with chronic increasing left knee pain. He did have a left knee arthroscopy done about 5 years ago. Unfortunately his knee pain continued. X-rays and clinical examination have been diagnostic for advanced osteoarthritis of the left knee. After failing conservative treatment, he elected proceed with a left total knee arthroplasty.. Allergies Allergy/AdvReac Type Severity Reaction Status Date / Time No Known Allergies Allergy Unknown Verified 08/29/20 12:00 Home Medications Medication Instructions Recorded Confirmed Type acetaminophen 500 mg tablet 500 mg PO DAILY PRN tab 02/24/19 08/29/20 History ibuprofen 800 mg tablet 800 mg PO BID tab 02/24/19 08/29/20 History tamsulosin 0.4 mg PO HS 12/10/19 08/29/20 History Trulicity 1.5 mg SUBCUT WK 06/04/20 08/29/20 History dutasteride 0.5 mg PO PM 06/04/20 08/29/20 History blood-glucose meter #1 ea 07/21/20 07/21/20 Rx oxycodone-acetaminophen 5 mg-325 1 tab PO Q6H PRN #30 tab 07/25/20 08/29/20 Rx mg tablet duloxetine 20 mg capsule,delayed 20 mg PO QAM cap 08/13/20 08/29/20 History release metformin 500 mg tablet,extended 2,000 mg PO HS #120 tab 08/25/20 08/29/20 Rx release 24 hr hydrochlorothiazide 25 mg PO QAM 08/29/20 08/29/20 History losartan 100 mg PO QPM 08/29/20 08/29/20 History atorvastatin 20 mg tablet 20 mg PO QPM #90 tab 09/09/20 Rx Past Med/Surg History Medical History Benign prostatic hyperplasia with urinary obstruction Chronic back pain LOWER BACK Depression Diabetes mellitus A1C 5.7% on 09/09/20 labs Dyslipidemia Erectile dysfunction Mary's thyroiditis Thyroid studies WNL 03/2020 Hypertension Insomnia Morbid obesity Osteoarthritis Prostate CA Currently, Urology monitoring Sleep apnea CPAP Thyroid goiter Stable - possible repeat thyroid u/s in 2023- PCP monitoring Surgical History History of arthroscopy of left knee Done at [facility] [place] - "Good mask vent." LMA #5 inserted History of esophagogastroduodenoscopy (EGD) History of prostate biopsy History of rotator cuff surgery History of torsion of testis Status post right knee replacement (~06/2020) Family History Uncle Colon cancer Unknown Diabetes Hypertension Father Diabetes Prostate cancer Mother Hypertension Denies family history of Ovarian cancer Coronary heart disease Breast cancer Social History Smoking Status: Light tobacco smoker Cigarettes Per Day: PIPE ON OCC; Second Hand Exposure: No; Hx Alcohol Use: Yes Alcohol type: beer Hx Substance Use: Yes Preferred Language: Persian Communication Ability: Effective Certified Social Workers In Health Care Required: No Beliefs That Will Affect Care: None marital status: Current Living Situation: Spouse current occupational status: employed 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 Physical Exam On physical examination of his left knee, he has a slight varus deformity. He has tenderness palpation over the distal medial femoral condyle and over the medial joint line.. Constitutional WD/WN, vitals as above Eyes PERRL, conjunctivae normal, anicteric sclerae ENMT external ear and nose normal, oropharynx normal Neck trachea midline, no thyromegaly Respiratory normal respiratory effort Cardiovascular RRR, no murmur, no edema Gastrointestinal (Abdomen) normal bowel sounds, soft, nontender, no hepatosplenomegaly Psychiatric A+Ox3, euthymic affect Results & Data Results & Data Laboratory Results . Diagnostic Findings X-rays of the left knee do show advanced osteoarthritis with joint space narrowing osteophyte formation and [id number]-thya articulation.. PG Care Time/CCT Total # of Minutes Spent Total Time Spent with Patient: Total time spent is greater than 50% in coordination of care (as documented) at patient's floor/unit and/or counseling patient: Coding Level of Care Code None Diagnoses Osteoarthritis of left knee M17.12
[~2020-09-15 09:37] MED LIST changes: +ACETAMINOPHEN 500 MG TAB PO SCH; +BUPIVACAINE 0.25% 30 ML VIAL ONE; +BUPIVACAINE 0.5 % 5 MG/1 ML PF 10ML VIAL ONE; +EPINEPHrine INJ 1 MG/ML AMP ONE; +FAMOTIDINE 20 MG TAB PO SCH; -FLM4 PO; +GABAPENTIN 600 MG DOSE PO SCH; +LR 500ML BOLUS, THEN 15ML/HR IV SCH; +LR 60ML/HR IV SCH; -METO50TA8 PO; +MIDAZOLAM HCL 1 MG/ML 2ML VIAL ONE; +ROPIVACAINE 0.5% HCL/PF 150 MG, BUPIVACAINE 0.75% MPF 20 ML, EPINEPHrine 30MG/30ML (OR ... INSTIL SCH; +TRANEXAMIC ACID 1,000 MG **IV Intra-op IV SCH; +TRANEXAMIC ACID 1,000 MG **IV Pre-op IV SCH; +dexAMETHasone 4 MG TAB PO SCH; +fentaNYL citrate 100 MCG/2 ML VIAL ONE
--- NOTE | 2020-09-15 09:55 | History & Physical Bridge Note ---
Date of Service September 15, 2020 History & Physical Bridge Note I have examined the patient, reviewed the History & Physical and in the interval since the performance of the History & Physical I have noted the following changes of clinical significance: no changes noted
[2020-09-15] MEDS ORDERED: ORTHO JOINT ANESTHETIC ONE (10:18)
[2020-09-15] MEDS ORDERED: fentaNYL citrate 100 MCG/2 ML VIAL IV PRN (10:54)
[2020-09-15] MEDS ORDERED: ATROPINE SULFATE 0.1 MG/ML 10ML SYR IV PRN (10:54)
[2020-09-15] MEDS ORDERED: ONDANSETRON INJ 2 MG/ML 2 ML VIAL IV PRN ×2 (10:54→14:22)
[2020-09-15] MEDS ORDERED: HYDROmorphone INJ 2 MG/ML SYR/VIAL IV PRN (10:54)
[2020-09-15] MEDS ORDERED: ePHEDrine sulfate 50 MG/ML AMP IV PRN (10:54)
[2020-09-15] MEDS ORDERED: PROPOFOL IV EMULSION 10 MG/ML 20 ML VIAL IV ONE (11:38)
[2020-09-15] MEDS ORDERED: MIDAZOLAM HCL 1 MG/ML 2ML VIAL ONE (11:38)
[2020-09-15] MEDS ORDERED: LIDOCAINE HCL 2% 2 ML VIAL/AMP(20MG/ML) INFIL ONE (11:38)
[2020-09-15] MEDS ORDERED: ONDANSETRON INJ 2 MG/ML 2 ML VIAL ONE (11:38)
--- NOTE | 2020-09-15 13:00 | Operative Report ---
PG Post Operative Report Pre & Post Diagnosis Operation Date: 09/15/20 11:30 Pre-Op Diagnosis: Left Knee Degenerative Joint Disease Post-Op Diagnosis: Left Knee Degenerative Joint Disease I identified the patient and participated in the time-out.: Yes Procedure Operation Date: 09/15/20 11:30 Actual Procedures p Left Total Knee Arthroplasty(Left) - Jairo Martin DO Surgeon Jairo Martin DO Cellophane Bag Machine Operator Jairo Herrera PAC Estimated Blood Loss 20 Findings Consistent with Post-Op Diagnosis Specimens Left femoral and tibial bone Complications none Disposition Disposition: Recovery Room Indications Reggie is a pleasant 55-year-old male who presented my office complaints of chronic increasing left knee pain. X-rays and clinical examination have been diagnostic for advanced osteoarthritis of the left knee. After failing conservative treatment, he elected to proceed with a left total knee arthroplasty. Description of Procedure Implants used: I used a Yaya Persona total knee arthroplasty system with a size 8 standard femur, F tibia, 32 patella, and a size 12 medial congruent polyethylene bearing. All components were cemented in place with Palacos G cement. Rocsoe arrived [facility] for the above procedure. He was seen in the preoperative holding area and the operative extremity was identified and signed. He was given a preoperative antibiotic, TXA, a spinal anesthetic and an adductor nerve block. He was taken back to the operating room and laid on the table in supine position. He was given basic sedation. The operative knee was then prepped and draped in sterile fashion. A timeout was done, and the patient and the operative extremity was properly identified. A midline incision was made directly over the patella. Dissection was taken down to the extensor mechanism. A subvastus arthrotomy was used. The medial retinaculum was released and the fat pad was mostly excised. The knee was flexed and the ACL, PCL, and meniscus were removed. A drill was sent down the center of the femoral canal followed by an intramedullary nadya. Off that nadya a distal femoral cutting block was placed. 9 mm was resected off the distal femur at 5 of valgus. A posterior referencing AP sizing guide was then placed on the distal femur. The femur measured to be a size 8. 2 drill holes were placed in 3 of external rotation. A 4-in-1 cutting block was then impacted into place. Anterior, posterior, and chamfer cuts were then made. The proximal tibia was then exposed. An external tibial alignment guide was placed. A tibial cut guide was then anchored in place and the proximal tibia was then resected. The posterior aspect of the knee was then opened up and any additional meniscus fragments and osteophytes were removed. The tibia measured to be a size F. The tibial plate was then placed in the appropriate rotation and the tibia was drilled and punched. Trial components were then placed. I used a size 12 medial congruent polyethylene insert. The knee was brought through a full range of motion and felt to be stable. The peg holes for the femoral component were then drilled. The patella was then everted and 9 mm was resected off the posterior aspect of the patella. The patella measured to be a size 32. 3 peg holes were then drilled. A trial patella was placed. The knee was once again brought through a full range of motion and felt to be stable. Trial components were then removed. The surrounding soft tissues were injected with 100 cc of an orthopedic pain control cocktail. All components were then cemented into place with Palacos G cement. The final polyethylene insert was then snapped into place. Once cement was dry the tourniquet was deflated. Hemostasis was obtained. A dilute betadyne lavage was then done for 3 minutes. The joint was then irrigated with normal saline solution. The subvastus arthrotomy was then closed with #1 Vicryl suture. The skin was closed with 2-0 Vicryl, 3-0V lock suture, and hanh. A Silverlon and a soft compressive dressing were placed. He was then transferred to a hospital bed and taken to the postanesthesia care unit in stable condition. He tolerated the procedure well. Jairo Herrera PA-C, was present for the entire procedure. He was critical for patient positioning, prepping, draping, retraction exposure, wound closure and application of sterile dressing. I attest to the content of the Intraoperative Record and any orders documented therein. Any exceptions are noted below.
--- NOTE | 2020-09-15 13:48 | XRay Report ---
TWO VIEWS LEFT KNEE CLINICAL HISTORY: Postoperative examination. FINDINGS: AP and crosstable lateral portable views of the left knee are obtained. A left knee arthrop lasty is in near anatomic alignment. There has been undersurface remodeling of the patella. No acute fracture is seen. There are expected postoperative changes around the knee including skin clips, soft tissue edema, and subcutaneous gas. IMPRESSION: Expected postoperative changes status post left knee arthroplasty. No acute fracture is s een. ACT 112: Negative or not required by law. Electronically signed by: Kevin Jacinto M.D. 09/15/2020 1:47 PM
[2020-09-15] MEDS ORDERED: MAGNESIUM HYDROXIDE SUSP 30 ML UDC PO PRN (14:22)
[2020-09-15] MEDS ORDERED: HYDROmorphone INJ 0.5 MG/0.5 ML SYR IV PRN (14:22)
[2020-09-15] MEDS ORDERED: METOCLOPRAMIDE HCL INJ 5 MG/ML 2 ML VIAL IV PRN (14:22)
[2020-09-15] MEDS ORDERED: bisacodyL 10 MG SUPP PR PRN (14:22)
[2020-09-15] MEDS ORDERED: NALOXONE HCL 0.4 MG/1 ML VIAL/CARP IV PRN (14:22)
--- NOTE | 2020-09-15 14:38 | Anesthesiology Progress Note ---
Date of Service September 15, 2020 Anesthesia Post Procedure Vital Signs Vital Signs: Temp Pulse Pulse Resp BP Pulse Ox 09/15/20 14:00 82 20 108/70 95 09/15/20 13:50 36.4 C L 89 20 118/75 95 09/15/20 13:40 81 18 125/74 94 09/15/20 13:30 85 20 121/72 95 09/15/20 13:24 36.4 C L 96 H 20 120/96 96 09/15/20 10:21 37 C 105 H 20 150/92 H 99 Transfer of Care Handoff Completed per policy Notes Mental Status: alert / awake / arousable and participated in evaluation Patient Amnestic to Procedure: Yes Nausea / Vomiting: adequately controlled Pain: adequately controlled Airway Patency, RR, SpO2: stable & adequate BP & HR: stable & adequate Hydration State: stable & adequate Anesthetic Complications: no major complications apparent and Pt Satisfied with anesthetic care
[2020-09-15] MEDS: ACETAMINOPHEN 500 MG TAB PO SCH ×2 (14:43→21:56)
[2020-09-15] MEDS: SODIUM CHLORIDE 0.9% 1000ML 1,000 ML IV SCH (14:44)
[2020-09-15] MEDS ORDERED: PHARMACY GLYCEMIC MGMT CONSULT PRN (14:50)
[2020-09-15] MEDS ORDERED: LANTUS PER UNIT CHARGE SQ ONE (15:30)
[2020-09-15] MEDS: KETOROLAC 30 MG/ML VIAL IV SCH ×2 (16:19→21:56)
[2020-09-15] MEDS: INSULIN ASPART 100 UNITS/ML 3 ML PEN SC SCH ×2 (17:44→21:56)
[2020-09-15] MEDS: ceFAZolin 2000MG 2,000 MG/15 ML SYR IV SCH (20:17)
[2020-09-15] MEDS: DOCUSATE SODIUM 100 MG CAP PO SCH (20:18)
[2020-09-15] MEDS: ASPIRIN 81 MG ECTAB PO SCH (20:18)
--- NOTE | 2020-09-15 20:47 | Pharmacy Report ---
Pharmacy Glycemic Short Note 2 - Date of Service September 15, 2020 - Glycemic Short BSG Results (Last 24 hours): 09/15/20 09/15/20 09/15/20 10:08 13:26 14:33 POC Glucose 116 H 134 H 140 H 09/15/20 17:02 POC Glucose 191 H OUTPATIENT ANTIDIABETIC REGIMEN: * Trulicity 1.5mg SC weekly * Metformin 2000mg HS ASSESSMENT: * 55 y/o M admitted for L TKA. Pre-op he received dexamethasone 8mg PO and also received "Ortho Joint" mix (contains DXM). Pharmacy was consulted for glycemic management during his last admission ~3 months ago for R TKA. Will trial same plan as last admission which resulted in good glycemic control given similar presentation and BG. PLAN FOR INPATIENT GLYCEMIC CONTROL: * Hold outpatient oral diabetes medications * Basal insulin * Lantus 15 units SQ x 1 * Bolus insulin * NovoLog per scale ACHS or Q6hrs while NPO * Goal Range: Low 110 mg/dL - High 140 mg/dL * Correction Factor: 20 mg/dL/unit * Nutritional / Prandial insulin per carb ratio of 1 unit per 7 grams CHO consumed PLAN FOR DISCHARGE: * HbA1c = 5.7% (09/09/20), which indicates excellent diabetes control. Recommend to continue current regimen of Trulicity and metformin as long as patient is not experiencing any hypoglycemia or having any issues with his medications. Given his age, aggressive glycemic control is indicated.
[2020-09-15] MEDS ORDERED: LOSARTAN POTASSIUM 50 MG TAB PO SCH (21:00)
[2020-09-15] MEDS ORDERED: SENNA 8.6 MG TAB PO SCH (21:00)
[2020-09-15] MEDS ORDERED: TAMSULOSIN HCL 0.4 MG CAP PO SCH (21:00)
[2020-09-16] MEDS: SODIUM CHLORIDE 0.9% 1000ML 1,000 ML IV SCH (00:42)
[2020-09-16] MEDS: oxyCODONE HCL IR 5 MG TAB (IMMEDIATE RELEASE) PO PRN ×2 (00:47→07:57)
[2020-09-16] MEDS: KETOROLAC 30 MG/ML VIAL IV SCH ×2 (04:09→10:04)
[2020-09-16] MEDS: ceFAZolin 2000MG 2,000 MG/15 ML SYR IV SCH (04:10)
[2020-09-16] MEDS: ACETAMINOPHEN 500 MG TAB PO SCH (05:36)
[2020-09-16 05:57] LABS: Hematocrit (blood only) 35.3 % (42-52); Hemoglobin 11.9 g/dL (14.0-18.0); Mean Corpuscular Hemoglobin 27.2 pg (25-34); Mean Corpuscular Hgb Conc 33.7 g/dL (32-36); Mean Corpuscular Volume 80.8 fL (80-100); Mean Platelet Volume 10.3 fL (7.4-10.4); Platelet Count 226 K/uL (130-400); RDW Standard Deviation 41.3 fL (36.4-46.3); Red Blood Count 4.37 M/uL (4.7-6.1); White Blood Count 15.93 K/uL (4.8-10.8)
[2020-09-16 06:39] LABS: BUN Creatinine Ratio 15.3 (10-20); Calcium 8.9 mg/dl (8.5-10.1); Est GFR (African American) 103.3; Est GFR (Non-African American) 89.1
--- NOTE | 2020-09-16 06:51 | Orthopedic Progress Note ---
Date of Service September 16, 2020 Assessment & Plan (1) Status post left knee replacement: Overall he is doing very well. Is not having much pain in the left knee. He is on aspirin for DVT prophylaxis. He will be seen by physical therapy this morning for ambulation and range of motion exercises. We will leave the Rasta wrap on through physical therapy. After physical therapy the nursing staff can remove the Rasta wrap and change to Silverlon if necessary. He can be discharged home later today. He will follow-up with orthopedics in 2 weeks. Mariya Malhotra was seen and examined at bedside this morning. Overall is doing fairly well. He is a little bit of bleeding through his bandage last night. He has been up and ambulating to the bathroom. He has no other complaints.. Review of Systems All systems reviewed & are unremarkable except as noted in HPI & below. Physical Exam On physical examination of the left knee, there is a little bit of bleeding through the Rasta wrap but not much. He has active dorsiflexion plantarflexion of his left ankle. His leg is out in full extension.. Results & Data Results & Data Laboratory Results . Diagnostic Findings Postoperative x-rays of the left knee show the prosthesis to be in anatomic alignment without any evidence of fracture, dislocation, or loosening. PG Care Time/CCT Total # of Minutes Spent Total Time Spent with Patient: Total time spent is greater than 50% in coordination of care (as documented) at patient's floor/unit and/or counseling patient: Coding Level of Care Code 03559 Post Operative Follow-Up Diagnoses Status post left knee replacement Z96.652
--- NOTE | 2020-09-16 06:52 | Discharge Summary ---
Date of Service September 16, 2020 Admission HPI (Per Admitting) Roscoe is a pleasant 55-year-old male who is been dealing with chronic increasing left knee pain. He did have a left knee arthroscopy done about 5 years ago. Unfortunately his knee pain continued. X-rays and clinical examination have been diagnostic for advanced osteoarthritis of the left knee. After failing conservative treatment, he elected proceed with a left total knee arthroplasty.. Admission Exam (Per Admitting) On physical examination of his left knee, he has a slight varus deformity. He has tenderness palpation over the distal medial femoral condyle and over the medial joint line.. Principal Diagnosis Same as "Discharge Diagnosis" noted below under Discharge Instructions. Discharge Exam On physical examination of the left knee, there is a little bit of bleeding through the Rasta wrap but not much. He has active dorsiflexion plantarflexion of his left ankle. His leg is out in full extension.. Discharge Data Consultations 09/15/20 14:22 Consult Case Management - Discharge Planning Routine Procedures Performed Operation Date: 09/15/20 11:30 Actual Procedures p Left Total Knee Arthroplasty(Left) - Jairo Martin DO Ordered Studies 09/15/20 05:00 US - OR guided needle placemen Routine Hospital Course (1) Status post left knee replacement: On September 15, 2020 dog arrived at [facility] and underwent a left total knee arthroplasty without complication. He had a spinal anesthetic. Postoperatively he was started on aspirin for DVT prophylaxis and transferred to the general orthopedic floors. His hospital course was uneventful. On postop day #1 his vital signs were stable and his pain was well controlled. He was able to participate well with physical therapy doing ambulation and range of motion exercises. He was then discharged home. He will follow-up with orthopedics in 2 weeks. PG Care Time/CCT Total # of Minutes Spent Total Time Spent with Patient: Total time spent is greater than 50% in coordination of care (as documented) at patient's floor/unit and/or counseling patient: Discharge Plan Discharge Items Patient Disposition: Home - Home Health Services Reason For Visit: Left Knee Degenerative Joint Disease Discharge Diagnosis: Left knee replacement Activity: As commented below Non-emergency contact: Surgeon Call non-emergency contact if: your wound has increased redness and your wound has increased drainage Follow-up/Referrals: Leo Lou MD [Primary Care Provider] - Diet: Carb Consistent or DM2 Addtl Attending Provider Instructions: Activity and Therapy Recommendations: * If you are using [facility] then therapy will be provided at your home until they feel you have accomplished all of your goals. * If you are using [facility] then Physical Therapy will be provided until they feel you are ready to start Outpatient Physical Therapy. * If you are not using home therapy then Outpatient Physical Therapy should start about 3-5 days from your day of surgery. Therapy will last about 6-10 weeks * It is important not to put a pillow under your knee when you are relaxing or sleeping. It is just as important to make sure you are getting your knee perfectly straight as it is to regain your knee bend. * You were shown a series of exercises in the hospital. Do these exercises three times each day including the exercises you were shown in physical therapy. * Get up and walk several times each day. For the first four weeks, try not to stand or walk for more than one hour at a time. If you do stand or walk for more than one hour, you will not hurt anything, but your leg will likely swell. * As you feel comfortable, you may change from the walker or crutches to a cane and then to independent walking. Medications: * Narcotic You will likely be sent home from the hospital with a prescription for the narcotic pain medication that worked best throughout your stay. * Aspirin Most patients will be required to take Aspirin 81mg twice a day for 6 weeks after surgery. This is obtained [id number] and a prescription is not necessary. * Other medications may be prescribed for specific circumstances. If you have any questions, please call the office at . * Resume previous home medications unless otherwise instructed TEDs/Elastic Stockings: The white elastic stockings help limit swelling and prevent blood clots from forming in your legs.~ The more you wear them, the more they work. Wear them for six weeks. Dressing Care: Leave the Silverlon dressing in place for 7 days. After 7 days you may remove the dressing. If the incision is not draining then you may leave the hanh open to air. If there is a little bit of drainage or if the hanh are getting stuck on your clothing then cover the incision with a dry dressing. The hanh will be removed at your 2 week follow-up appointment. Showering: You may shower with the Silverlon dressing in place. Do not let the shower spray hit the dressing directly. Pat the Silverlon dressing dry. If the dressing becomes wet underneath, then simply remove the dressing. Keep the incision dry until you are 7 days out from the day of surgery. After 7 days you may remove the Silverlon dressing and shower with the hanh exposed. Let soapy water run over the hanh and pat them dry. Do not scrub or soak the incision. Things To Watch For: * Drainage from the incision site that occurs more than one week after your surgery. * Increased redness at the incision site. * Fever above 102 degrees Fahrenheit. * Unusual chest pain or shortness of breath. * Call [facility] at with any of the above problems Follow-Up Visit: Follow-up with Dr. Martin's PA (Jiaro Herrera) 2-3 weeks after your day of surgery. He will remove your hanh and answer any questions. If you have any additional questions or concerns, Dr Martin is usually in the office at the same time and will be available An appointment was probably scheduled when you signed-up for surgery in the office. If you have any questions call Office Instructions: More detailed instructions as well as Frequently Asked Questions were provided in a folder by our office when you signed-up for surgery. Please review these instructions when you get home. If you have any further questions or concerns, please feel free to call the office at [phone] Pending Studies at Discharge: No Stand-Alone Forms: My [facility], Smoking Cessation Medications and DC Order Prescriptions: New aspirin 81 mg Tablet,Delayed Release (Dr/Ec) 81 mg PO BID 42 Days Qty: 0 RF: 0 Continued metformin 500 mg tablet extended release 24 hr 2,000 mg PO HS Qty: 120 RF: 11 atorvastatin 20 mg tablet 20 mg PO QPM Qty: 90 RF: 3 (DME) blood-glucose meter [OneTouch Verio Meter] Misc See Rx Instructions .ROUTE .MEDSUPPLY Qty: 1 RF: 0 ibuprofen 800 mg tablet 800 mg PO BID RF: 0 acetaminophen 500 mg tablet 500 mg PO DAILY PRN (Reason: Pain) RF: 0 duloxetine [Cymbalta] 20 mg capsule,delayed release(DR/EC) 20 mg PO QAM RF: 0 tamsulosin 0.4 mg capsule 0.4 mg PO HS RF: 0 hydrochlorothiazide 25 mg tablet 25 mg PO QAM RF: 0 losartan 100 mg tablet 100 mg PO QPM RF: 0 oxycodone-acetaminophen [Percocet] 5-325 mg tablet 1 tab PO Q6H PRN (Reason: pain) Qty: 30 RF: 0 dutasteride 0.5 mg capsule 0.5 mg PO PM RF: 0 Trulicity 1.5 mg/0.5 mL pen injector 1.5 mg subcut WK RF: 0 Discharge Orders: Discharge Order (Routine); Ordered 09/16/20 Ordered By: Jairo Martin Admission Data Admit Date/Time: 09/15/20 13:27 Attending Provider: Jairo Martin Admit Provider: Jairo Martin Primary Care Provider: Leo Lou
[2020-09-16] MEDS: DOCUSATE SODIUM 100 MG CAP PO SCH (08:39)
[2020-09-16] MEDS: ASPIRIN 81 MG ECTAB PO SCH (08:39)
[2020-09-16] MEDS: INSULIN ASPART 100 UNITS/ML 3 ML PEN SC SCH ×2 (08:52→13:02)
[2020-09-16] MEDS ORDERED: hydroCHLOROthiazide 25 MG TAB PO SCH (09:00)
[2020-09-16] MEDS ORDERED: MULTIVITAMIN TAB PO SCH (09:00)
[2020-09-16] MEDS ORDERED: DULoxetine HCL 20 MG CAP PO SCH (09:00)
== END 2020-09-16 13:40 | disposition home health service (06) ==
LOC: ASU 09:37 → 3E 09:37

== ENCOUNTER 2025-03-05 06:15 | Inpatient (IN) ==
--- NOTE | 2025-02-26 23:03 | Anesthesiology Consultation ---
Date of Service February 26, 2025 Assessment & Plan (1) Encounter for pre-operative examination: - Check BSG DOS - Infectious disease screening: Per assessment on 02/26/25- No known recent infectious disease contacts or current infectious disease symptoms. - GLP-1 medication instructions: Patient informed by PAT RN to stop 7 days prior to surgery. - Known goiter hx: Per 02/12/25 PET/CT Skull base to mid thigh, Large left thyroid mass with variable degree of radiotracer uptake suspicious for malignancy as this radiotracer agent is a nonspecific tumor marker. Tracheal deviation to the right. Spoke with patient via phone 02/27/25; he denies dysphagia, odynophagia, orthopnea, dyspnea. Case/imaging reviewed by Dr. Ayoub. Nothing further needed preoperatively from his perspective. Chart Review Chart Review: Acceptable Risk for Surgery and Patient NOT seen in Pre Admission Testing History Surgery Operation Date: 03/05/25 10:50 Proposed Procedures p Robotic Assisted Laparoscopic Radical Retropubic Prostatectomy, Possible Open, Possible Pelvic Lymph Node Dissection - Estevan Delgadillo MD Height/Weight Height: 5 ft 7.25 in Weight: 121.563 kg Allergies Allergy/AdvReac Type Severity Reaction Status Date / Time No Known Allergies Allergy Unknown Verified 02/26/25 10:45 Medications Home Medications Medication Instructions Recorded Confirmed Last Taken blood-glucose meter (OneTouch #1 ea 07/21/20 01/08/25 Unknown Verio Meter) tramadol 50 mg tablet 50 mg PO TID PRN pain #90 tabs 09/28/23 02/26/25 Unknown cyclobenzaprine 10 mg tablet 10 mg PO TID PRN muscle spasm #90 12/06/23 02/26/25 Unknown tabs sildenafil 100 mg tablet 100 mg PO DAILY PRN sexual 04/03/24 02/26/25 Unknown activity #20 tabs metformin 500 mg tablet,extended 500 mg PO HS #90 tabs 08/07/24 02/26/25 Unknown release 24 hr semaglutide 0.25 mg or 0.5 mg (2 0.5 mg subcut Q7D 12/07/24 02/26/25 Unknown mg/3 mL) subcutaneous pen injector (Ozempic) ibuprofen 800 mg tablet 800 mg PO HS 12/20/24 02/26/25 Unknown acetaminophen 650 mg 1,300 mg PO HS 01/08/25 02/26/25 Unknown tablet,extended release (Tylenol Arthritis Pain) bupropion HCl 150 mg 24 hr tablet, 300 mg PO QAM 02/26/25 02/26/25 Unknown extended release dutasteride 0.5 mg capsule 0.5 mg PO HS 02/26/25 02/26/25 Unknown tamsulosin 0.4 mg capsule 0.4 mg PO HS 02/26/25 02/26/25 Unknown Past Medical History Medical History Chronic back pain LBP Depression Diabetes mellitus Per records Dyslipidemia Hx of Mary thyroiditis Hx of insomnia Hypertension Idiopathic polyneuropathy Morbid obesity Osteoarthritis Prostate CA Initial dx 2019, Urology monitoring Sleep apnea CPAP Thyroid goiter "Stable", PCP monitoring Past Family History Family History Uncle Colon cancer, Onset Age: 70 Maternal; surgery; Cancer of kidney Father Diabetes Prostate cancer Mother Hypertension Family/Other Prostate cancer Paternal Uncle Grandmother (Paternal) Stomach cancer, Onset Age: 69 Grandmother (Maternal) Leukemia Denies family history of Ovarian cancer Breast cancer Past Surgical History Surgical History History of anesthesia reaction "Anesthesia makes me stay up all night after surgery" [place] of arthroscopy of [place] [facility] [place]." LMA #5 inserted History of bilateral knee replacement Dr. Martin; History of esophagogastroduodenoscopy (EGD) History of prostate biopsy x2, 11/2019 and 11/2024 History of rotator cuff surgery left History of testicular surgery 1977, for testicular torsion, "had to be tacked back down" History of torsion of testis 1977 Social History Smoking Status: Never smoker tobacco type: pipe Smoking cigarettes per day: Pipe once every day; Do You Dip or Chew Tobacco: Yes (advised) Hx Alcohol Use: Yes Alcohol type: beer alcohol intake frequency: holidays/special occasions only Hx Substance Use: No substance use type: does not use Lab Results Anesthesia Preop Results Results Anesthesia Widget: WBC 5.49 K/ul (4.8-10.8) 02/25/25 Hgb 15.4 g/dl (14.0-18.0) 02/25/25 Hct 44.4 % (42.0-52.0) 02/25/25 Plt 180 K/uL (130-400) 02/25/25 Na 137 mmol/L (136-145) 02/25/25 K 4.1 mmol/L (3.5-5.1) 02/25/25 Cl 105 mmol/L (98-107) 02/25/25 CO2 27 mmol/L (21-32) 02/25/25 BUN 16 mg/dl (6-23) 02/25/25 Creat 1.00 mg/dl (0.6-1.4) 02/25/25 Glucose Level 97 mg/dl (70-99(Fasting)) 02/25/25 HA1c 5.2 % (4.5-5.6) 02/25/25 Urine Color Yellow 02/25/25 Urine Appearance Clear (Clear) 02/25/25 Urine pH 7.0 (4.5-7.5) 02/25/25 Urine Specific Blevins 1.010 (1.000-1.030) 02/25/25 Urine Protein Negative (Negative) 02/25/25 Urine Glucose (UA) Negative (Negative) 02/25/25 Urine Ketones Negative (Negative) 02/25/25 Urine Blood Negative (Negative) 02/25/25 Urine Nitrite Negative (Negative) 02/25/25 Urine Bilirubin Negative (Negative) 02/25/25 Urine Urobilinogen Negative (Negative) 02/25/25 Urine Leukocyte Esterase Negative (Negative) 02/25/25 Testing Laboratory Results Urine culture (02/25/25): no growth Electrocardiogram Date: 02/25/25 NSR at 73bpm. unconfirmed report. Chest X-Ray Date: 02/25/25 Findings: + NAD Stress Test Date: 06/29/18 Valvular Disease: no significant valvular disease Normal pharmacologic stress echocardiogram. No echocardiographic or EKG evidence of myocardial ischemia having achieved heart rate adequate for diagnostic purposes. The test was terminated due to the patient having reached target heart rate. The heart rate response and blood pressure response to d obutamine infusion were appropriate. Resting study: Mild concentric LVH is present. EF 55-60% The right ventricle is mildly dilated. The right ventricular systolic function is normal. Doppler findings do not suggest pulmonary hypertension. LV diastolic function is normal. Other Testing Head/neck ultrasound Date: 07/24/18 FINDINGS: The relevant of thyroid measures 61 x 31 x 24 mm. The level of the thyroid measures 81 x 39 x 15 mm. There are bilateral coalescent nodules. Also evident is an isthmus nodule measuring 30 x 24 x 24 mm. IMPRESSION: Thyromegaly. Multinodular thyroid goiter with multiple bilateral coalescent nodules. PET/CT Skull base to mid thigh Date: 02/12/25 5.6 x 4.8cm left thyroid mass. Focal uptake in the right posterior prostate apex consistent with known prostate cancer. No evidence of metastatic disease. Large left thyroid mass with variable degree of radiotracer uptake suspicious for malignancy as this radiotracer agent is a nonspecific tumor marker. Tracheal deviation to the right. Recommend thyroid ultrasound/ENT consultation.
[~2025-03-05 06:15] MED LIST changes: -ACETAMINOPHEN 500 MG TAB PO SCH; -BUPIVACAINE 0.25% 30 ML VIAL ONE; -BUPIVACAINE 0.5 % 5 MG/1 ML PF 10ML VIAL ONE; -EPINEPHrine INJ 1 MG/ML AMP ONE; -FAMOTIDINE 20 MG TAB PO SCH; -GABAPENTIN 600 MG DOSE PO SCH; +HEPARIN SOD 5,000 UNIT/0.5 ML VIAL SQ ONE; -LR 500ML BOLUS, THEN 15ML/HR IV SCH; -LR 60ML/HR IV SCH; -MIDAZOLAM HCL 1 MG/ML 2ML VIAL ONE; -ROPIVACAINE 0.5% HCL/PF 150 MG, BUPIVACAINE 0.75% MPF 20 ML, EPINEPHrine 30MG/30ML (OR ... INSTIL SCH; -TRANEXAMIC ACID 1,000 MG **IV Intra-op IV SCH; -TRANEXAMIC ACID 1,000 MG **IV Pre-op IV SCH; -dexAMETHasone 4 MG TAB PO SCH; -fentaNYL citrate 100 MCG/2 ML VIAL ONE
[2025-03-05] MEDS ORDERED: MIDAZOLAM HCL 1 MG/ML 2ML VIAL ONE (06:59)
[2025-03-05] MEDS ORDERED: ROCURONIUM BROMIDE 10 MG/ML 5 ML VIAL IV ONE (06:59)
[2025-03-05] MEDS ORDERED: DEXAMETHASONE SOD INJ 4 MG/ML VIAL ONE (06:59)
[2025-03-05] MEDS ORDERED: PROPOFOL IV EMULSION 10 MG/ML 20 ML VIAL IV ONE (06:59)
[2025-03-05] MEDS ORDERED: LIDOCAINE 2% 2 ML VIAL/AMP(20MG/ML) INFIL ONE (06:59)
[2025-03-05] MEDS ORDERED: GLYCOPYRROLATE 0.2 MG/ML VIAL ONE (06:59)
[2025-03-05] MEDS ORDERED: ONDANSETRON INJ 2 MG/ML 2 ML VIAL ONE (06:59)
[2025-03-05] MEDS ORDERED: SUGAMMADEX SODIUM 200 MG/2 ML VIAL IV ONE (07:00)
[2025-03-05] MEDS ORDERED: ONDANSETRON INJ 2 MG/ML 2 ML VIAL IV PRN ×2 (07:03→14:30)
[2025-03-05] MEDS ORDERED: PROMETHAZINE HCL 6.25 MG in SODIUM CHLORIDE 0.9% 50 ML IV PRN (07:03)
[2025-03-05] MEDS ORDERED: ATROPINE SULFATE 0.1 MG/ML 10ML SYR IV PRN (07:03)
[2025-03-05] MEDS ORDERED: KETAMINE HCL 10MG/ML SYR ONE (07:07)
[2025-03-05] MEDS: HEPARIN SOD 5,000 UNIT/0.5 ML VIAL SQ ONE (07:09)
[2025-03-05] MEDS: LR 15ML/HR IV SCH (07:14)
--- NOTE | 2025-03-05 07:28 | History & Physical Report ---
Date of Service March 05, 2025 Assessment & Plan (1) Prostate cancer: Plan: Prostate cancer has elected to have surgery as definitive treatment risks, benefits, and expectations reviewed plan for robotic prostatectomy today History of Present Illness Primary Care Provider: Estevan Lou MD Prostate cancer presenting for prostatectomy Allergies Allergy/AdvReac Type Severity Reaction Status Date / Time No Known Allergies Allergy Unknown Verified 03/05/25 06:31 Home Medications Medication Instructions Recorded Confirmed Type blood-glucose meter (OneTouch #1 ea 07/21/20 01/08/25 Rx Verio Meter) tramadol 50 mg tablet 50 mg PO TID PRN pain #90 tabs 09/28/23 03/05/25 Rx cyclobenzaprine 10 mg tablet 10 mg PO TID PRN muscle spasm #90 12/06/23 03/05/25 Rx tabs sildenafil 100 mg tablet 100 mg PO DAILY PRN sexual 04/03/24 03/05/25 Rx activity #20 tabs metformin 500 mg tablet,extended 500 mg PO HS #90 tabs 08/07/24 03/05/25 Rx release 24 hr semaglutide 0.25 mg or 0.5 mg (2 0.5 mg subcut Q7D 12/07/24 03/05/25 History mg/3 mL) subcutaneous pen injector (Ozempic) ibuprofen 800 mg tablet 800 mg PO HS 12/20/24 03/05/25 History acetaminophen 650 mg 1,300 mg PO HS 01/08/25 03/05/25 History tablet,extended release (Tylenol Arthritis Pain) bupropion HCl 150 mg 24 hr tablet, 300 mg PO QAM 02/26/25 03/05/25 History extended release dutasteride 0.5 mg capsule 0.5 mg PO HS 02/26/25 03/05/25 History tamsulosin 0.4 mg capsule 0.4 mg PO HS 02/26/25 03/05/25 History Past Med/Surg History Problem List Type 2 diabetes mellitus with peripheral neuropathy Osteoarthritis involving multiple joints on both sides of body 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 Sacroiliac joint disease Atherosclerotic heart disease Carpal tunnel syndrome, right Lumbosacral radiculopathy at S1 Idiopathic polyneuropathy Venous reflux Pes planus of both feet Osteoarthritis of ankles, bilateral Nocturnal hypoxemia Elevated sed rate Elevated C-reactive protein Photosensitivity Ocular migraine Prostate cancer (Chronic 11/28/24) Neuropathy Hypomagnesemia Hypokalemia Low testosterone Goiter Hypertension Vitamin D deficiency Severe obstructive sleep apnea Multiple thyroid nodules Insomnia Mary's thyroiditis Thyroid studies WNL 03/2020 Erectile dysfunction Elevated prostate specific antigen (PSA) Depression with anxiety Benign prostatic hyperplasia with urinary obstruction Encounter for pre-operative examination Medical History Chronic back pain LBP Depression Diabetes mellitus Per records Dyslipidemia Hx of Mary thyroiditis Hx of insomnia Hypertension Idiopathic polyneuropathy Morbid obesity Osteoarthritis Prostate CA Initial dx 2019, Urology monitoring Sleep apnea CPAP Thyroid goiter "Stable", PCP monitoring Surgical History History of anesthesia reaction "Anesthesia makes me stay up all night after surgery" History of arthroscopy of left knee Done at [facility] [place] - "Good mask vent." LMA #5 inserted History of bilateral knee replacement Dr. Martin; History of esophagogastroduodenoscopy (EGD) History of prostate biopsy x2, 11/2019 and 11/2024 History of rotator cuff surgery left History of testicular surgery 1977, for testicular torsion, "had to be tacked back down" History of torsion of testis 1977 Family History Uncle Colon cancer, Onset Age: 70 Maternal; surgery; Cancer of kidney Father Diabetes Prostate cancer Mother Hypertension Family/Other Prostate cancer Paternal Uncle Grandmother (Paternal) Stomach cancer, Onset Age: 69 Grandmother (Maternal) Leukemia Denies family history of Ovarian cancer Breast cancer Social History Smoking Status: Never smoker Tobacco Type: Pipe and Smokeless Tobacco (Dip or Chew) Cigarettes Per Day: Pipe once every day;; Second Hand Exposure: No; Do You Dip or Chew Tobacco: Yes (advised); Tobacco Cessation Education Requested by Patient: No Hx Alcohol Use: Yes Alcohol type: beer Alcohol Intake Frequency: Monthly or Less Hx Substance Use: No Preferred Language: Finnish Communication Ability: Effective Visual Impairment: No Limitations Abstracter Required: No Beliefs That Will Affect Care: None marital status: Current Living Situation: Spouse current occupational status: retired 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; How many Children do You have: 3 Other Information That Helps Us Care for You: No Feels Safe at Home: Yes Safety Concerns: Feels Safe At This Time Diet: regular caffeine: Yes Physical Activity Frequency: Does not Exercise Seatbelt Use: always Sunscreen Use: No Assistive Devices: CPAP and Glasses Physical Exam Constitutional: well developed and well nourished Neck: neck nontender Respiratory: normal respiratory effort; no respiratory distress and does not use accessory muscles Cardiovascular: Rate/Rhythm: regular rate Vessels: radial pulses present Extremities: no edema Gastrointestinal (Abdomen): Inspection/Auscultation: abdomen normal to inspection Percussion/Palpation: abdomen soft; abdomen nontender and no guarding Musculoskeletal: Head/Neck/Chest: normocephalic and head atraumatic Extremities: extremities normal to inspection Skin: no rashes and no lesions Trauma: no evidence of skin trauma Neurologic: awake; not obtunded Speech / Cognition: normal speech Motor/Sensory: no tremor Psychiatric: Orientation: alert and oriented x 3 Genitourinary: no CVA tenderness Lymphatic: no lymphadenopathy Results & Data Vital Signs (Past 12 Hours) Vital Signs Temp Pulse Resp BP Pulse Ox O2 Del Method 03/05/25 06:40 36.7 C 86 20 148/94 H 98 Room Air
[2025-03-05] MEDS: ceFAZolin 3000MG 3,000 MG/72.5 ML BAG IV SCH (07:37)
[2025-03-05] MEDS: SURGICEL ABSORB HEMOSTAT 2IN X 14IN TOP ONE (09:14)
[2025-03-05] MEDS: FLOSEAL HEMOSTATIC MATRIX 10ML TOP ONE (10:45)
[2025-03-05] MEDS: BUPIVACAINE 0.5 % 5 MG/1 ML MPF 30ML VIAL ONE (10:46)
[2025-03-05] MEDS: BUPIVACAINE LIPOSOME 1.3% 266 MG/20 ML VIAL ONE (10:46)
--- NOTE | 2025-03-05 11:26 | Operative Report ---
PG Post Operative Report Pre & Post Diagnosis Operation Date: 03/05/25 07:30 Pre-Op Diagnosis: Prostate Cancer Post-Op Diagnosis: Prostate Cancer I identified the patient and participated in the time-out.: Yes Procedure Operation Date: 03/05/25 07:30 Actual Procedures p Robotic Assisted Laparoscopic Radical Retropubic Prostatectomy, and Pelvic Lymph Node Dissection(Not Applicable) - Estevan Delgadillo MD Surgeon Estevan Delgadillo MD Manager Heavy Equipment Fernanda Arteaga Estimated Blood Loss 200 Findings Consistent with Post-Op Diagnosis Specimens 1. Periprostatic fat 2. Left pelvic lymph nodes 3. Right pelvic lymph nodes 4. Prostate and seminal vesiclesseparate small piece of anterior prostate tissue which was intravesical. Description of Procedure The patient was identified in the preoperative holding area, appropriate informed consents were reviewed and completed, and he was transported to the operating suite. Subcutaneous heparin was administered in the pre-operative holding area. Upon arrival in the operating suite, he received appropriate antibiotics and general anesthesia. Was positioned supine a Jara catheter was inserted and the case initiated. A Veress needle was passed per umbilicus with uniform insufflation of the abdomen to 15mmHg. Of note, he has a relatively large umbilical hernia. He was placed in steep Trendelenburg position. A periumbilical incision was then made to accommodate a 12mm Visiport with 10mm 0degree laparoscope. Inspection of the abdomen was carried out, and there was no evidence of traumatic entry or injury secondary to the Veress needle. After confirming a clear anterior abdominal wall, ports were subsequently placed in standard robotic prostatectomy fashion without incident. To begin the robotic portion of the case, the left lateral aspect of the sigmoid was mobilized off of the left pelvic side wall to allow the pouch of Reggie to be appropriately visualized. I then made an incision in the pouch of Reggie, overlying the seminal vesicles. Both SVs as well as the ampullae of the vasa were entirely dissected, with the vasa transected 3cm from the prostate. The medial umbilical ligaments were then controlled with bipolar electrocautery just inferior to the umbilicus. Following cauterization, they were divided utilizing monopolar cautery. A peritoneal incision was carried from this location to the medial aspect of the internal inguinal rings bilaterally with care to avoid opening through the ring. This incision was concluded when the vas deferens was reached. Dissection of the bladder and prostate off of the posterior aspect of the pubic arch was completed allowing full visualization of the prostate. The fat overlying the prostate was removed en bloc and passed off the table as a specimen labeled "periprostatic fat". The endopelvic fascia was cleared during this portion of the procedure, and subsequently opened - first on the right and then the left. The incision through the endopelvic fascia began near the prostate-bladder junction and was carried to the apex with extreme care to preserve all lateral levator musculature as well as the periurethral musculature and sphincter complex. I additionally preserved the puboprostatic ligaments. I then controlled the DVC with a 3-0 V-lock suture in overlapping/figure of 8 fashion. The lymph node dissection was then conducted. External iliac vessels were identified on the pelvic side wall. The packet of fat and lymphatic tissue that resides just under the iliac vein was elevated and off of the vein with a split and roll technique. The packet was dissected laterally to the circumflex vein and distally to the obturator nerve which was preserved. The proximal aspect of the packet was carried towards the bifurcation of the iliac vessels. A combination of monopolar and bipolar cautery were used to assist with control. After completing the dissection on both sides, the packets were collected and passed off of the table as specimens labeled "pelvic lymph nodes". My attention then returned to the prostate, with identification of the bladder neck aided by gentle traction on the Jara catheter and lateral to medial pressure at the presumed level of the bladder neck with the robotic instruments. Of note, he has a very large prostate with intravesical intrusion circumferentially. Extreme care was used as we made the bladder neck incision. An anterior cystotomy was made, the Jara balloon deflated and the catheter guided through the incision to allow anterior retraction. I attempted to preserve maximal bladder neck musculature as I circumferentially dissected around the bladder neck. After incision through the posterior aspect of the mucosa, the dissection was carried through detrusor muscle until the bilateral ampullae of the vasa were identified. The previously dissected vasa and SVs were brought through the incision and used to elevated the prostate anteriorly. A posterior plane behind the prostate was then developed - splitting Denonvilliers's fascia. This dissection was carried as far as possible towards the apex as well as far as possible laterally. An incision in the lateral prostatic fascia was then made bilaterally to facilitate control of the vascular pedicles and preservation of the nerve bundles. Vasculature running along the posterior/lateral aspect of the prostate was preserved as well as the tissue containing the nerves. The pedicles were then controlled with a series of Weck clips. The apical attachments of the prostate were remaining at that stage. The DVC was divided after control with bipolar cautery over the prostate. Continuous inspection from anterior and lateral views allowed me to closely follow the apical contour of the prostate and maximally preserve urethral length and tissue. At that time I was able to reinspect the bladder neck and there was a slight longitudinal tear in the midline. This was reconstructed with a series of [id number] 3 OV lock sutures. Additionally tighten the lateral aspects of the bladder neck with similar [id number] V-Loc sutures. There was a small amount of anterior prostatic tissue which appeared to be serving the/functioning as an intravesical median lobe that was still attached to the bladder neck and I did resect this area and pass it off the table with the remainder of the specimen. The prostate was entirely freed at that point, and collected in an EndoCatch bag before being moved out of the field of vision. Hemostasis was confirmed and anastomosis of the bladder and urethra was completed utilizing a double armed V- Lock stitch. A new Jara catheter was inserted and the anastomosis tested with irrigation. There was no evidence of leak. A leny style stitch was placed bilaterally to functionally marsupialize the area of the lymph node dissection. The robot was undocked, the specimen extracted through expansion of the eunice- umbilical camera port. Given his large umbilical hernia, I did mobilize the fascia and then we performed a primary repair of the hernia utilizing 0 PDS s utures. The fascia was closed with a series of 0-PDS figure of 8 stitches. Skin under the umbilical area was mobilized and subcutaneous tissue was reapproximated with a 0 Vicryl prior to closure with Monocryl. Monocryl was used to close all other skin incisions. All wounds were dressed with Dermabond. Exparel was injected into all incisions and into the muscle layers. The case was concluded and the patient taken to the PACU in stable condition. Keegan Giang and Evelin Crawley assisted from incision to closure. I attest to the content of the Intraoperative Record and any orders documented therein. Any exceptions are noted below.
--- NOTE | 2025-03-05 11:39 | Anesthesiology Progress Note ---
Date of Service March 05, 2025 Anesthesia Post Procedure Vital Signs Vital Signs: Temp Pulse Pulse Resp BP Pulse Ox O2 Del Method 03/05/25 11:25 95 H 13 105/70 96 Oxymask 03/05/25 11:17 36.9 C 96 H 14 111/60 94 Oxymask 03/05/25 06:40 36.7 C 86 20 148/94 H 98 Room Air O2 Flow Rate 03/05/25 11:25 5 03/05/25 11:17 5 03/05/25 06:40 Pain Intensity Right Arm: Pain Intensity: 4 Transfer of Care Handoff Completed per policy Notes Mental Status: alert / awake / arousable and participated in evaluation Patient Amnestic to Procedure: Yes Nausea / Vomiting: adequately controlled Pain: adequately controlled Airway Patency, RR, SpO2: stable & adequate BP & HR: stable & adequate Hydration State: stable & adequate Anesthetic Complications: no major complications apparent and Pt Satisfied with anesthetic care
[2025-03-05 11:48] LABS: Hematocrit (blood only) 41.4 % (42.0-52.0); Hemoglobin 14.3 g/dl (14.0-18.0); Mean Corpuscular Hemoglobin 28.8 pg (25.0-34.0); Mean Corpuscular Volume 83.3 fL (80.0-100.0); Platelet Count 218 K/uL (130-400); RDW Standard Deviation 41.4 fL (36.4-46.3); Red Blood Count 4.97 M/uL (4.70-6.10); White Blood Count 13.49 K/ul (4.8-10.8)
[2025-03-05 12:04] LABS: Anion Gap 6.0 (3-11); Blood Urea Nitrogen 13.0 mg/dl (6-23); Calcium 8.8 mg/dl (8.6-10.3); Carbon Dioxide 24.0 mmol/L (21-32); Chloride 107.0 mmol/L (98-107); Creatinine Clr Calc Pharmacy 84.2 ml/min; Glucose 157.0 mg/dl (70-99(Fasting)); Potassium 5.2 mmol/L (3.5-5.1); Sodium 137.0 mmol/L (136-145)
[2025-03-05 12:07] LABS: Immature Granulocytes # (auto) 0.07 K/uL (0.01-0.20); Immature Granulocytes % (auto) 0.5 %
[2025-03-05] MEDS: HYDROmorphone INJ 2 MG/ML SYR/VIAL IV PRN (12:22)
[2025-03-05] MEDS ORDERED: PHARMACY GLYCEMIC MGMT CONSULT PRN (14:30)
[2025-03-05] MEDS ORDERED: HYDROmorphone INJ 0.5 MG/0.5 ML SYR IV PRN ×2 (14:30)
[2025-03-05] MEDS ORDERED: DEXTROSE 50% 50 ML SYRINGE IV PRN (14:45)
[2025-03-05] MEDS ORDERED: GLUCAGON FOR INJ 1 MG VIAL SQ PRN (14:45)
[2025-03-05] MEDS ORDERED: GLUCOSE 10 TAB/TUBE PO PRN (14:45)
[2025-03-05] MEDS ORDERED: GLUCOSE 40% GEL 15 GM TUBE PO PRN (14:45)
[2025-03-05] MEDS ORDERED: CARBOHYDRATES FOR HYPOGLYCEMIA PO PRN (14:45)
--- NOTE | 2025-03-05 14:49 | Pharmacy Report ---
Pharmacy Glycemic Short Note 2 - Date of Service March 05, 2025 - Glycemic Short BSG Results (Last 24 hours): 03/05/25 03/05/25 03/05/25 06:39 11:19 11:36 Glucose 157 H POC Glucose 97 124 H OUTPATIENT ANTIDIABETIC REGIMEN: * metformin 500 mg po HS, ozempic 0.5 mg SQ weekly ASSESSMENT: * 59 year old s/p surgery, POD 0 - pharmacy consulted for glycemic management. Steroids pulled in OR intraoperatively. Postop BSG 157 mg/dL - will start novolog for now and have scale on for Lantus at HS in case blood sugars trend upward from steroids. PLAN FOR INPATIENT GLYCEMIC CONTROL: * Hold outpatient oral diabetes medications * Basal insulin * Lantus 0-10 units HS * Bolus insulin * NovoLog per scale ACHS or Q6hrs while NPO * Goal Range: Low 110 mg/dL - High 140 mg/dL * Correction Factor: 20 mg/dL/unit * Nutritional / Prandial insulin per carb ratio of 1 unit per 6 grams CHO consumed
[2025-03-05] MEDS: SODIUM CHLORIDE 0.9% 1,000 ML IV SCH (15:06)
[2025-03-05] MEDS: INSULIN ASPART PER UNIT CHARGE SC SCH (17:33)
[2025-03-05] MEDS: LANTUS PER UNIT CHARGE SC SCH (21:10)
[2025-03-05] MEDS: DOCUSATE SODIUM 100 MG CAP PO SCH (21:22)
[2025-03-05] MEDS: HEPARIN SOD 5,000 UNIT/0.5 ML VIAL SQ SCH (21:22)
[2025-03-05 22:15] VITALS: RESP 18
[2025-03-06] MEDS ORDERED: ACETAMINOPHEN 500 MG TAB PO PRN (06:04)
[2025-03-06 07:15] VITALS: BP 129/77; PULSE 80; TEMP 98.1; O2SAT 97
[2025-03-06 07:21] LABS: Hematocrit (blood only) 40.9 % (42.0-52.0); Hemoglobin 14.1 g/dl (14.0-18.0); Immature Granulocytes # (auto) 0.04 K/uL (0.01-0.20); Immature Granulocytes % (auto) 0.4 %; Mean Corpuscular Hemoglobin 28.8 pg (25.0-34.0); Mean Corpuscular Volume 83.5 fL (80.0-100.0); Platelet Count 221 K/uL (130-400); RDW Standard Deviation 42.4 fL (36.4-46.3); Red Blood Count 4.90 M/uL (4.70-6.10); White Blood Count 11.33 K/ul (4.8-10.8)
[2025-03-06 08:05] LABS: Anion Gap 8.0 (3-11); Blood Urea Nitrogen 12.0 mg/dl (6-23); Calcium 9.2 mg/dl (8.6-10.3); Carbon Dioxide 26.0 mmol/L (21-32); Chloride 106.0 mmol/L (98-107); Creatinine Clr Calc Pharmacy 104.3 ml/min; Glucose 101.0 mg/dl (70-99(Fasting)); Potassium 3.9 mmol/L (3.5-5.1); Sodium 140.0 mmol/L (136-145)
--- NOTE | 2025-03-06 08:07 | Urology Progress Note ---
Date of Service March 06, 2025 Assessment & Plan (1) Prostate cancer: Plan Postop day #1 status post robotic prostatectomy Recovery very much on pace Ambulate Advance diet Plan for discharge home later today Admission and Anticipated Discharge Date Admission Date: March 05, 2025 Subjective Did extremely well overnight Pain controlled Has been out of bed Asking for diet Urine clear Physical Exam Physical Exam: Incisions all appropriate Urine clear Results & Data Vital Signs (Past 12 Hours) Vital Signs Temp Pulse Resp BP BP Pulse Ox O2 Del Method 03/06/25 07:12 36.7 C 80 18 129/77 97 Room Air 03/06/25 03:00 36.5 C 90 18 158/84 H 96 Room Air 03/05/25 22:13 36.9 C 88 18 131/83 97 Nasal Cannula 03/05/25 21:40 Room Air, CPAP O2 Flow Rate 03/06/25 07:12 03/06/25 03:00 03/05/25 22:13 2 03/05/25 21:40 PG Care Time/CCT Total # of Minutes Spent Total Time Spent with Patient: Total time spent is greater than 50% in coordination of care (as documented) at patient's floor/unit and/or counseling patient: Coding Level of Care Code None Diagnoses Prostate cancer C61
--- NOTE | 2025-03-06 11:11 | Discharge Summary ---
Date of Service March 06, 2025 Admission HPI Per Admitting Provider Prostate cancer presenting for prostatectomy Principal Diagnosis Prostate cancer Discharge Exam Constitutional no acute distress Respiratory normal respiratory effort; no respiratory distress and no labored breathing Gastrointestinal (Abdomen) Inspection/Auscultation: abdomen normal to inspection Musculoskeletal Head/Neck/Chest: normocephalic Neurologic moves all extremities and awake Psychiatric Orientation: alert and oriented x 3 Genitourinary Jara draining clear urine Discharge Data Allergies Allergy/AdvReac Type Severity Reaction Status Date / Time No Known Allergies Allergy Unknown Verified 03/05/25 06:31 Procedures Performed Operation Date: 03/05/25 07:30 Actual Procedures p Robotic Assisted Laparoscopic Radical Retropubic Prostatectomy, and Pelvic Lymph Node Dissection(Not Applicable) - Estevan Delgadillo MD Hospital Course (1) Prostate cancer: Plan Postop day #1 status post robotic prostatectomy Recovery very much on pace Ambulate Advance diet Plan for discharge home later today Patient doing well upon reassessment, ready for discharge Plan for home with Jara catheter Expected clinical course reviewed, all questions answered Total Time Total Time Spent Total Time Spent (In Minutes): 25 Discharge Plan Discharge Items Patient Disposition: Home - Self-Care Reason For Visit: Malignant Neoplasm of Prostate Discharge Diagnosis: Malignant neoplasm of prostate Activity: Per Instructions section Lifting: No more than 10 pounds Bathing Comment: Okay to shower after discharge, no tub bath or soaking Sexual Activity: Wait until after follow-up appointment Exercise/Sports: Wait until after follow-up appointment Driving/Machine Use: No driving while taking prescription pain medication Non-emergency contact: Urologist Call non-emergency contact if: your pain is not controlled, you have a fever, your temperature is above 101, your wound has increased redness, your wound has increased drainage and your wound pain has increased Follow-up/Referrals: Estevan Lou MD [Primary Care Provider] - Diet: Carb Consistent or DM2 Addtl Attending Provider Instructions: Please take all medications as prescribed and keep all follow-ups as scheduled. Please call our office at [phone] with any questions, concerns or need to reschedule appointments for any reason. We are happy to assist you. We have sent an antibiotic to your pharmacy of choice. Please begin antibiotic as prescribed the day BEFORE your scheduled voiding trial at [facility]. Please continue antibiotic every 12 hours through the day AFTER your voiding trial. You can remove your catheter on 03/[address]gadillo. Activity: We recommend having someone with you for the first few days after surgery to help care for you. For the first 2 weeks after surgery, we would like you to get up and walk around your house. However, we recommend limit physical activity that would increase your heart rate. This will allow your body to rest and heal. Take naps if you feel tired. Don't lift anything heavier than 10 pounds, mow the law or ride a bicycle until your follow-up appointment. Please avoid long car rides. Home Care: Unless directed otherwise, drink 6 to 8 glasses of water a day (enough to keep your urine light colored). This will also help keep a healthy flow of urine. We recommend using a stool softener for the first two weeks to avoid constipa tion. Jara Catheter or Suprapubic Catheter care: Keep the catheter well secured with either a leg back or leg strap with large bag. Empty your bag when it's about half full. You may notice some blood in the bag. This is normal after surgery and while the catheter is in place. Use mild soap (such as Dove or Dial) and water to wash the catheter and the head of your penis daily, or more frequently if needed. Return to your normal diet, we encourage good protein intake to promote healing. You may shower as normal. Please avoid tub baths or soaking until catheter removed and incisions well healed. Wearing sweat pants while you have the catheter is recommended, they will be more comfortable. Follow-up Your follow up appointments for having your catheter removed, and follow up with your physician should already be scheduled. If you have any questions regarding this, please contact our office. Your final pathology report will be discussed at your physician follow-up appo intment. Call [facility] at [phone] right away if you have any of the following: Chest pain or trouble breathing (call 151 or go to the hospital) Fever of 101F or higher, uncontrolled vomiting Heavy bleeding, clots, or bright red blood from the catheter Catheter that falls out or stops draining Foul-smelling discharge from your catheter Redness, swelling, warmth, or increased pain at your incision site Drainage, pus, or bleeding from your incision Pending Studies at Discharge: Yes (pathology) Stand-Alone Forms: My [facility], Smoking Cessation Medications and DC Order Prescriptions: New ciprofloxacin HCl 500 mg tablet 500 mg PO BID Qty: 6 0RF oxycodone 5 mg tablet 5 mg PO Q8H PRN (Reason: pain) Qty: 10 0RF Continued tramadol 50 mg tablet 50 mg PO TID PRN (Reason: pain) Qty: 90 3RF cyclobenzaprine 10 mg tablet 10 mg PO TID PRN (Reason: muscle spasm) Qty: 90 3RF (DME) blood-glucose meter [OneTouch Verio Meter] Misc See Rx Instructions .ROUTE .MEDSUPPLY Qty: 1 0RF Rx Instructions: As directed acetaminophen [Tylenol Arthritis Pain] 650 mg tablet extended release 1,300 mg PO HS Ozempic 0.25 mg or 0.5 mg (2 mg/3 mL) pen injector 0.5 mg subcut Q7D Patient Comments: mondays or tuesdays typically ibuprofen 800 mg tablet 800 mg PO HS metformin 500 mg tablet extended release 24 hr 500 mg PO HS Qty: 90 3RF bupropion HCl 150 mg tablet extended release 24 hr 300 mg PO QAM Held sildenafil 100 mg tablet 100 mg PO DAILY PRN (Reason: sexual activity) Qty: 20 11RF Hold Instructions: Resume on 04/08/25. Discuss at follow-up Rx Instructions: administer 30 minutes to 4 hours before activity Discontinued tamsulosin 0.4 mg capsule 0.4 mg PO HS Rx Instructions: Take one capsule by mouth at bedtime dutasteride 0.5 mg capsule 0.5 mg PO HS Discharge Orders: Discharge Order (Routine); Ordered 03/06/25 Ordered By: Fernanda Crawley Admission Data Admit Date/Time: 03/05/25 11:37 Attending Provider: Estevan Delgadillo Admit Provider: Estevan Delgadillo Primary Care Provider: Estevan Lou Coding Level of Care Code 37562 IN/OBS DISCH 30 MIN/LESS Diagnoses Prostate cancer C61
== END 2025-03-06 14:22 | disposition home or self-care (01) | DRG 707 ==
LOC: ASU 06:15 → PACUINP 11:37 → 3W 14:24